=== PATIENT | female | born 1950 | race Caucasian/White ===

== ENCOUNTER 2020-08-09 13:46 | Inpatient (IN) | payer BC, SELFPAY ==
[2020-08-09] VITALS (12 sets, daily range): BP systolic 125–184; BP diastolic 80–127; PULSE 63–87; RESP 14–22; TEMP 37; O2SAT 82–100; BMI 34.0
--- NOTE | 2020-08-09 13:49 | XR_ITS ---
WS: [id number] XR chest 1V portable [id number] REASON FOR EXAM: dyspnea/cough FINDINGS: Mild tortuosity of the thoracic aorta without aneurysmal dilatation. Normal heart size. Calcified granulomatous changes in both hemithoraces. No definite acute pulmonary parenchymal or pleu ral abnormality. Focal lateral eventration of the left hemidiaphragm. XR/XR chest 1V portable [id number] IMPRESSION: No acute chest abnormality.
--- NOTE | 2020-08-09 14:06 | CT_ITS ---
WS: [id number] CT HEAD TECHNIQUE: Noncontrast CT of the head obtained from the skullbase to the vertex. CLINICAL INFORMATION: Symptoms of Acute Stroke COMPARISON: None. DLP: 887.[address] scans at [facility] use at least one of these dose optimization techniques: automat ed exposure control; mA and/or kV adjustment per patient size (includes targeted exams where dose is matched to clinical indication); or iterative reconstruction. FINDINGS: No evidence of intracranial hemorrhage or mass effect. Ventricular system and basal cisterns are weber nt. Mild small vessel changes with mild parenchymal volume loss. No extra-axial fluid collections. No evidence of mass or mass effect. Normal sutherland-white differentiation. Mastoid air cells well aerated. Mild mucosal thickening in the right maxillary sinus and ethmoid air cells. CT/CT head wo con* [id number] IMPRESSION: 1. No evidence of intracranial hemorrhage or mass effect. 2. Mild small vessel changes. Mild parenchymal volume loss. 3. No acute intracranial findings. Attempted notification Chad Albarran DO at 08/09/2020 3:08 PM.
--- NOTE | 2020-08-09 14:06 | ECG_ITS ---
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 Measurements Intervals [place] Rate: 62 P: 51 WI: 162 QRS: -2 QRSD: 94 T: -40 QT: 554 QTc: 563 Interpretive Statements SINUS RHYTHM MARKED T-WAVE ABNORMALITY, CONSIDER ANTEROLATERAL ISCHEMIA [-0.5+ mV T WAVE IN I/aVL/V3-V6] MODERATE T-WAVE ABNORMALITY, CONSIDER INFERIOR ISCHEMIA [-0.1+ mV T WAVE IN II/aVF] PROLONGED QT INTERVAL CRITICAL TEST RESULT No previous ECG available for comparison Electronically Signed On 08-09-2020 23:58:58 CDT by Sunny Ferrari M.D. [id number]
--- NOTE | 2020-08-09 14:11 | ED_ITS ---
HPI - Weakness General: Chief complaint: Weakness Stated complaint: WEAKNESS, NUMBNESS R SIDE, NOT FEELING WELL Time Seen by Provider: 08/09/20 13:48 History of Present Illness: HPI Narrative: 70-year-old female presents to the emergency room with complaints of generally not feeling well she said for the last approximately week her speech seems to be according to her family members. Denies chest pain denies shortness of breath tonight denies vomiting or diarrhea has had some nausea. She states she has had weakness for 2 to 3 weeks. She has intermittent chest pain which she describes as heartburn-like over that same time. She is not having any chest pain today. She does feel like she has been veering to the right. She has a history of lung CA but has not been on any oxygen and had a resection of the left lower lobectomy 6 to 7 years ago she had some vague abdominal pain for the last several months as well. No dysuria urgency or frequency. MD Complaint: generalized weakness Onset (ago): week(s) Duration: intermittent Location: generalized Severity: mild Relieving factors: none Exacerbating factors: none Associated symptoms: Reports chest pain and nausea; Denies chills, confusion, melena, decreased appetite, diaphoresis, dysuria, fever(s), headache(s), myalgias, rash, short of breath, syncope or vomiting Review of Systems Const: Denies: fever(s), chills or diaphoresis ENMT: Denies: throat pain, ear or mastoid pain, nasal discharge or nasal congestion Card: Reports: chest pain; Denies: syncope Resp: Denies: dyspnea, productive cough or non-productive cough GI: Reports: nausea; Denies: vomiting or melena : Denies: dysuria Skin/Breast: Denies: rash or pruritus Neuro: Denies: headache(s) or confusion PFSH ED PFSH: Medical History Acute insomnia Anxiety COPD (chronic obstructive pulmonary disease) History of lung cancer in adulthood Hyperlipidemia Hypertension Surgical History H/O carpal tunnel repair H/O: hysterectomy History of appendectomy History of cholecystectomy History of lung surgery History of neck surgery History of tonsillectomy Family History Father , CABG CAD (coronary artery disease) Daughter CAD (coronary artery disease) Daughter CAD (coronary artery disease) Social History Smoking and tobacco status: former smoker Alcohol intake: never Substance/Drug Use: never Lives independently: Yes Marital status: Physical Exam Const: COMMON NORMALS: no acute distress GENERAL APPEARANCE: cooperative and comfortable ORIENTATION/CONSCIOUSNESS: Yes awake, Yes oriented to person, Yes oriented to place and Yes oriented to time HENMT: COMMON NORMALS: normocephalic, atraumatic and hearing grossly normal bilaterally HEAD & SCALP: normocephalic and atraumatic Eye: COMMON NORMALS: Equal, round and reactive pupils present, EOMs intact bilaterally, conjunctivae normal and no scleral icterus CONJUNCTIVA: Yes conjunctivae normal PUPIL: Yes Equal, round and reactive pupils present Neck/C-Spine: COMMON NORMALS: full ROM, no lymphadenopathy, supple and no JVD Lymph: LYMPHATIC: no lymphadenopathy noted and no lymphedema noted Resp: COMMON NORMALS: normal respiratory effort, No retractions, No use of accessory muscles and clear to auscultation bilaterally AUSCULTATION: clear to auscultation bilaterally Cardio: COMMON NORMALS: no JVD, regular rate, regular rhythm and No murmurs present (Cardio) RATE: regular rate RHYTHM: regular rhythm GI: COMMON NORMALS: Soft to palpation and No hepatosplenomegaly present AUSCULTATION: Yes normoactive bowel sounds PALPATION: Yes Soft to palpation, No Tenderness to palpation present (GI), No Guarding due to palpation present (GI) and Yes No hepatosplenomegaly present Extremity: COMMON NORMALS: normal to inspection, capillary refill normal, no clubbing, cyanosis or edema, no calf tenderness and no pedal edema Neuro: SENSORIUM/ORIENTATION: Yes oriented to person, Yes oriented to place and Yes oriented to time Skin: COMMON NORMALS: no rashes or lesions noted GENERAL SKIN EXAM: no rashes or lesions noted Course 2 Vital Signs: Vital signs: Vital Signs Temperature 98 F 08/10/20 04:00 Pulse Rate 61 08/10/20 06:00 Respiratory Rate 14 08/10/20 04:00 Blood Pressure 128/65 08/10/20 04:00 Pulse Oximetry 94 08/10/20 04:00 MDM - Weakness MDM Narrative: Medical decision making narrative: Patient had EKG changes initially see the change in the chart she had some flipped T waves that improved on her second EKG her troponins are actually negative however. Also I am concerned that she had an evidence of a CVA however it is old she is outside the window for any kind of treatment or stroke score at best could be 1 given her complaint of mild dysarthria. Additionally her initial EKG had a prolonged QT. Organ to go ahead and admit her discussed with Dr. Maynard orders are written she will require further evaluation both for the CVA and cardiac work-up. Incidental finding of mild cystitis. Lab Data: Labs: Lab Results 08/09/20 08/09/20 08/09/20 Range/Units 14:10 14:10 14:10 WBC 5.8 (4.0-10.0) 10^3/ uL RBC 4.40 (4.1-5.3) 10^6/u L Hgb 13.5 (11.5-15.3) g/dL Hct 42.1 (37.0-47.0) % MCV 95.7 (81-99) fL MCH 30.7 (28.0-34.0) pg MCHC 32.1 (30.0-36.0) g/dL RDW 12.9 (12.1-15.1) % Plt Count 128 L (130-400) 10^3/c mm MPV 12.1 H (7.4-10.4) fL Neut % (Auto) 43.6 % Lymph % (Auto) 44.8 % Sterling % (Auto) 7.8 % Eos % (Auto) 3.1 % Baso % (Auto) 0.5 % Neut # (Auto) 2.51 (1.8-7.7) 10^3/u L Lymph # (Auto) 2.6 (0.8-4.8) 10^3/u L Sterling # (Auto) 0.5 (0.2-0.9) 10^3/u L Eos # (Auto) 0.2 (0.0-0.8) 10^3/u L Baso # (Auto) 0.0 (0.0-0.1) 10^3/u L Nucleated RBC % (a uto) 0 % Nucleated RBCs # 0.0 /100WBC PT 14.00 (12.1-14.9) SECO NDS INR 1.05 (0.8-1.2) APTT 33.5 (23.9-36.7) SECO NDS Sodium 140 (136-145) mmol/L Potassium 4.0 (3.5-5.1) mmol/L Chloride 102 (98-107) mmol/L Carbon Dioxide 32 H (22-29) mmol/L Anion Gap 10.0 (5-19) BUN 16 (8-23) mg/dL Creatinine 0.8 (0.5-0.9) mg/dL GFR Calculation 71.3 L (90-130) mL/min Glucose 90 (65-115) mg/dL POC Glucose (70-110) mg/dL Calculated Osmolal ity 291 (285-295) mOsm/k g Calcium 8.5 (8.5-10.5) mg/dL Total Bilirubin 0.2 (0.15-1.2) mg/dL AST 22 (0-32) U/L ALT 11 (0-33) U/L Alkaline Phosphata se 89 (35-105) IU/L Creatine Kinase (26-192) U/L Troponin T Baselin e (0-10) ng/L Troponin T 120 Min [place] (0-10) ng/L Delta Troponin T (0-10) ABS# Troponin T Hi Sens 6Hr (0-10) ng/L Troponin T Hi Sens 6Hr Delta (0-12) ng/L Total Protein 6.9 (6.6-8.7) g/dL Albumin 3.8 (3.5-5.2) g/dL Globulin 3.1 (1.3-4.6) g/dL TSH (0.27-4.20) uIU/ mL Urine Color (Yellow) Urine Appearance (CLEAR) Urine pH (5-7) Ur Specific Gravit y (1.005-1.030) Urine Protein (Negative) Urine Glucose (UA) (Normal) Urine Ketones (Negative) Urine Blood (Negative) Urine Nitrate (Negative) Urine Bilirubin (Negative) Urine Urobilinogen (Negative) mg/dL Ur Leukocyte Mabel ase (Negative) Urine RBC (0-2) /hpf Urine WBC (0-5) /hpf Ur Squamous Epith Cells (0-5) /hpf Amorphous Sediment Urine Bacteria (NONE) /hpf Urine Opiates Scre en (Negative) ng/mL Ur Barbiturates Sc reen (Negative) ng/mL Ur Phencyclidine S crn (Negative) ng/mL Ur Amphetamines Sc reen (Negative) ng/mL U Benzodiazepines Scrn (Negative) ng/mL Urine Cocaine Scre en (Negative) ng/mL U Marijuana (THC) Screen (Negative) ng/mL 08/09/20 08/09/20 08/09/20 Range/Units 14:10 14:10 14:22 WBC (4.0-10.0) 10^3/ uL RBC (4.1-5.3) 10^6/u L Hgb (11.5-15.3) g/dL Hct (37.0-47.0) % MCV (81-99) fL MCH (28.0-34.0) pg MCHC (30.0-36.0) g/dL RDW (12.1-15.1) % Plt Count (130-400) 10^3/c mm MPV (7.4-10.4) fL Neut % (Auto) % Lymph % (Auto) % Sterling % (Auto) % Eos % (Auto) % Baso % (Auto) % Neut # (Auto) (1.8-7.7) 10^3/u L Lymph # (Auto) (0.8-4.8) 10^3/u L Sterling # (Auto) (0.2-0.9) 10^3/u L Eos # (Auto) (0.0-0.8) 10^3/u L Baso # (Auto) (0.0-0.1) 10^3/u L Nucleated RBC % (a uto) % Nucleated RBCs # /100WBC PT (12.1-14.9) SECO NDS INR (0.8-1.2) APTT (23.9-36.7) SECO NDS Sodium (136-145) mmol/L Potassium (3.5-5.1) mmol/L Chloride (98-107) mmol/L Carbon Dioxide (22-29) mmol/L Anion Gap (5-19) BUN (8-23) mg/dL Creatinine (0.5-0.9) mg/dL GFR Calculation (90-130) mL/min Glucose (65-115) mg/dL POC Glucose 108 (70-110) mg/dL Calculated Osmolal ity (285-295) mOsm/k g Calcium (8.5-10.5) mg/dL Total Bilirubin (0.15-1.2) mg/dL AST (0-32) U/L ALT (0-33) U/L Alkaline Phosphata se (35-105) IU/L Creatine Kinase 154 (26-192) U/L Troponin T Baselin e 40 H (0-10) ng/L Troponin T 120 Min [place] (0-10) ng/L Delta Troponin T (0-10) ABS# Troponin T Hi Sens 6Hr (0-10) ng/L Troponin T Hi Sens 6Hr Delta (0-12) ng/L Total Protein (6.6-8.7) g/dL Albumin (3.5-5.2) g/dL Globulin (1.3-4.6) g/dL TSH (0.27-4.20) uIU/ mL Urine Color (Yellow) Urine Appearance (CLEAR) Urine pH (5-7) Ur Specific Gravit y (1.005-1.030) Urine Protein (Negative) Urine Glucose (UA) (Normal) Urine Ketones (Negative) Urine Blood (Negative) Urine Nitrate (Negative) Urine Bilirubin (Negative) Urine Urobilinogen (Negative) mg/dL Ur Leukocyte Mabel ase (Negative) Urine RBC (0-2) /hpf Urine WBC (0-5) /hpf Ur Squamous Epith Cells (0-5) /hpf Amorphous Sediment Urine Bacteria (NONE) /hpf Urine Opiates Scre en (Negative) ng/mL Ur Barbiturates Sc reen (Negative) ng/mL Ur Phencyclidine S crn (Negative) ng/mL Ur Amphetamines Sc reen (Negative) ng/mL U Benzodiazepines Scrn (Negative) ng/mL Urine Cocaine Scre en (Negative) ng/mL U Marijuana (THC) Screen (Negative) ng/mL 08/09/20 08/09/20 08/09/20 Range/Units 14:34 14:34 15:58 WBC (4.0-10.0) 10^3/ uL RBC (4.1-5.3) 10^6/u L Hgb (11.5-15.3) g/dL Hct (37.0-47.0) % MCV (81-99) fL MCH (28.0-34.0) pg MCHC (30.0-36.0) g/dL RDW (12.1-15.1) % Plt Count (130-400) 10^3/c mm MPV (7.4-10.4) fL Neut % (Auto) % Lymph % (Auto) % Sterling % (Auto) % Eos % (Auto) % Baso % (Auto) % Neut # (Auto) (1.8-7.7) 10^3/u L Lymph # (Auto) (0.8-4.8) 10^3/u L Sterling # (Auto) (0.2-0.9) 10^3/u L Eos # (Auto) (0.0-0.8) 10^3/u L Baso # (Auto) (0.0-0.1) 10^3/u L Nucleated RBC % (a uto) % Nucleated RBCs # /100WBC PT (12.1-14.9) SECO NDS INR (0.8-1.2) APTT (23.9-36.7) SECO NDS Sodium (136-145) mmol/L Potassium (3.5-5.1) mmol/L Chloride (98-107) mmol/L Carbon Dioxide (22-29) mmol/L Anion Gap (5-19) BUN (8-23) mg/dL Creatinine (0.5-0.9) mg/dL GFR Calculation (90-130) mL/min Glucose (65-115) mg/dL POC Glucose (70-110) mg/dL Calculated Osmolal ity (285-295) mOsm/k g Calcium (8.5-10.5) mg/dL Total Bilirubin (0.15-1.2) mg/dL AST (0-32) U/L ALT (0-33) U/L Alkaline Phosphata se (35-105) IU/L Creatine Kinase (26-192) U/L Troponin T Baselin e (0-10) ng/L Troponin T 120 Min [place] 37.00 H (0-10) ng/L Delta Troponin T -3.00 L (0-10) ABS# Troponin T Hi Sens 6Hr (0-10) ng/L Troponin T Hi Sens 6Hr Delta (0-12) ng/L Total Protein (6.6-8.7) g/dL Albumin (3.5-5.2) g/dL Globulin (1.3-4.6) g/dL TSH (0.27-4.20) uIU/ mL Urine Color Yellow (Yellow) Urine Appearance Sl hazy (CLEAR) Urine pH 6 (5-7) Ur Specific Gravit y 1.005 (1.005-1.030) Urine Protein Neg (Negative) Urine Glucose (UA) Norm (Normal) Urine Ketones Negative (Negative) Urine Blood Neg (Negative) Urine Nitrate Positive H (Negative) Urine Bilirubin Neg (Negative) Urine Urobilinogen Norm (Negative) mg/dL Ur Leukocyte Mabel ase Trace H (Negative) Urine RBC None (0-2) /hpf Urine WBC 5-10 H (0-5) /hpf Ur Squamous Epith Cells None (0-5) /hpf Amorphous Sediment Not Reportable Urine Bacteria 4+ H (NONE) /hpf Urine Opiates Scre en Positive H (Negative) ng/mL Ur Barbiturates Sc reen Negative (Negative) ng/mL Ur Phencyclidine S crn Negative (Negative) ng/mL Ur Amphetamines Sc reen Negative (Negative) ng/mL U Benzodiazepines Scrn Positive H (Negative) ng/mL Urine Cocaine Scre en Negative (Negative) ng/mL U Marijuana (THC) Screen Negative (Negative) ng/mL 08/09/20 08/09/20 Range/Units 19:51 19:51 WBC (4.0-10.0) 10^3/ uL RBC (4.1-5.3) 10^6/u L Hgb (11.5-15.3) g/dL Hct (37.0-47.0) % MCV (81-99) fL MCH (28.0-34.0) pg MCHC (30.0-36.0) g/dL RDW (12.1-15.1) % Plt Count (130-400) 10^3/c mm MPV (7.4-10.4) fL Neut % (Auto) % Lymph % (Auto) % Sterling % (Auto) % Eos % (Auto) % Baso % (Auto) % Neut # (Auto) (1.8-7.7) 10^3/u L Lymph # (Auto) (0.8-4.8) 10^3/u L Sterling # (Auto) (0.2-0.9) 10^3/u L Eos # (Auto) (0.0-0.8) 10^3/u L Baso # (Auto) (0.0-0.1) 10^3/u L Nucleated RBC % (a uto) % Nucleated RBCs # /100WBC PT (12.1-14.9) SECO NDS INR (0.8-1.2) APTT (23.9-36.7) SECO NDS Sodium (136-145) mmol/L Potassium (3.5-5.1) mmol/L Chloride (98-107) mmol/L Carbon Dioxide (22-29) mmol/L Anion Gap (5-19) BUN (8-23) mg/dL Creatinine (0.5-0.9) mg/dL GFR Calculation (90-130) mL/min Glucose (65-115) mg/dL POC Glucose (70-110) mg/dL Calculated Osmolal ity (285-295) mOsm/k g Calcium (8.5-10.5) mg/dL Total Bilirubin (0.15-1.2) mg/dL AST (0-32) U/L ALT (0-33) U/L Alkaline Phosphata se (35-105) IU/L Creatine Kinase (26-192) U/L Troponin T Baselin e (0-10) ng/L Troponin T 120 Min [place] (0-10) ng/L Delta Troponin T (0-10) ABS# Troponin T Hi Sens 6Hr 35.03 H (0-10) ng/L Troponin T Hi Sens 6Hr Delta -4.97 L (0-12) ng/L Total Protein (6.6-8.7) g/dL Albumin (3.5-5.2) g/dL Globulin (1.3-4.6) g/dL TSH 0.66 (0.27-4.20) uIU/ mL Urine Color (Yellow) Urine Appearance (CLEAR) Urine pH (5-7) Ur Specific Gravit y (1.005-1.030) Urine Protein (Negative) Urine Glucose (UA) (Normal) Urine Ketones (Negative) Urine Blood (Negative) Urine Nitrate (Negative) Urine Bilirubin (Negative) Urine Urobilinogen (Negative) mg/dL Ur Leukocyte Mabel ase (Negative) Urine RBC (0-2) /hpf Urine WBC (0-5) /hpf Ur Squamous Epith Cells (0-5) /hpf Amorphous Sediment Urine Bacteria (NONE) /hpf Urine Opiates Scre en (Negative) ng/mL Ur Barbiturates Sc reen (Negative) ng/mL Ur Phencyclidine S crn (Negative) ng/mL Ur Amphetamines Sc reen (Negative) ng/mL U Benzodiazepines Scrn (Negative) ng/mL Urine Cocaine Scre en (Negative) ng/mL U Marijuana (THC) Screen (Negative) ng/mL Discharge Plan Discharge Patient Disposition: Admitted As Inpatient Admit Provider: Carlos Maynard Clinical Impression: CVA (cerebral vascular accident), Elevated troponin, Uncontrolled hypertension, QT prolongation, Generalized weakness, Thrombocytopenia, UTI (urinary tract infection) Condition: Stable Coding Level of Care Code ED 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
[2020-08-09 14:27] LABS: Basophils % 0.5 %; Eosinophils # 0.2 10^3/uL (0.0-0.8); Eosinophils % 3.1 %; Hematocrit 42.1 % (37.0-47.0); Hemoglobin 13.5 g/dL (11.5-15.3); Lymphocytes # 2.6 10^3/uL (0.8-4.8); Lymphocytes % 44.8 %; Mean Corpuscular HGB Conc 32.1 g/dL (30.0-36.0); Mean Corpuscular Hemoglobin 30.7 pg (28.0-34.0); Mean Corpuscular Volume 95.7 fL (81-99); Mean Platelet Volume 12.1 fL (7.4-10.4); Monocytes # 0.5 10^3/uL (0.2-0.9); Monocytes % 7.8 %; Neutrophils # 2.51 10^3/uL (1.8-7.7); Neutrophils % 43.6 %; Nucleated Red Blood Cells % 0 %; Platelet Count 128 10^3/cmm (130-400); Red Cell Distribution Width 12.9 % (12.1-15.1); White Blood Count 5.8 10^3/uL (4.0-10.0)
[2020-08-09 14:40] LABS: Glucose Point of Care 108 mg/dL (70-110)
[2020-08-09 14:41] LABS: INR 1.05 (0.8-1.2)
[2020-08-09 14:42] LABS: Partial Thromboplastin Time 33.5 SECONDS (23.9-36.7)
[2020-08-09 14:47] LABS: Alanine Aminotransferase 11 U/L (0-33); Albumin Level 3.8 g/dL (3.5-5.2); Alkaline Phosphatase 89 IU/L (35-105); Aspartate Amino Transferase 22 U/L (0-32); Blood Urea Nitrogen 16 mg/dL (8-23); Calcium 8.5 mg/dL (8.5-10.5); Carbon Dioxide 32 mmol/L (22-29); Chloride 102 mmol/L (98-107); Globulin 3.1 g/dL (1.3-4.6); Glomerular Filtration Rate 71.3 mL/min (90-130); Glucose 90 mg/dL (65-115); Osmolality Calculated 291 mOsm/kg (285-295); Sodium 140 mmol/L (136-145); Total Bilirubin 0.2 mg/dL (0.15-1.2); Total Protein 6.9 g/dL (6.6-8.7)
[2020-08-09 15:28] LABS: Add Urine Microscopic? YES; Amphetamines Screen Urine Negative (Negative); Barbiturates Screen Urine Negative (Negative); Benzodiazepines Screen Urine Positive (Negative); Bilirubin Urine Neg (Negative); Blood Urine Neg (Negative); Cocaine Screen Urine Negative (Negative); Glucose Urine UA Norm (Normal); Ketones Urine Negative (Negative); Leukocyte Esterase Urine Trace (Negative); Nitrate Urine Positive (Negative); Opiate Screen Urine Positive (Negative); PCP Screen Urine Negative (Negative); Protein Urine Neg (Negative); Specific Gravity, Urine 1.005 (1.005-1.030); THC Screen Urine Negative (Negative); Urine Appearance SL Hazy (CLEAR); Urine Color Yellow (Yellow); Urobilinogen Urine Norm (Negative); pH Urine 6 (5-7)
[2020-08-09 15:30] LABS: Add Urine Culture? Yes; Bacteria Urine 4+ /hpf
[2020-08-09 15:51] LABS: Troponin(5th) Baseline 40 ng/L (0-10)
--- NOTE | 2020-08-09 17:19 | ECG_ITS ---
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 Measurements Intervals [place] Rate: 66 P: 62 MA: 171 QRS: -2 QRSD: 93 T: -30 QT: 425 QTc: 447 Interpretive Statements SINUS RHYTHM T WAVE ABNORMALITY, CONSIDER INFERIOR ISCHEMIA T WAVE ABNORMALIY, CONSIDER ANTERIOR ISCHEMIA Compared to ECG 08/09/2020 15:06:07 Prolonged QT interval no longer present Electronically Signed On 08-11-2020 8:02:23 CDT by Batsheva Ernandez M.D. [id number]
[2020-08-09] MEDS: nitroglycerin 1 gm/inch oint Pkt 1 INCH TOPICAL ×2 (18:18→22:13)
[2020-08-09] MEDS: aspirin 81 mg Chew Tablet 324 MG PO ×2 (18:18→22:12)
--- NOTE | 2020-08-09 19:27 | PM.HP ---
Providers/Chief Complaint Admitting Physician: Carlos Maynard Chief Complaint: WEAKNESS, NUMBNESS R SIDE, NOT FEELING WELL History of Present Illness Pleasant 70-year-old lady came into ER due to progressive weakness starting about a week ago, at which point she also noted transient right facial droop. She has noticed having right hand clumsiness. Also noticed that her right leg has been weaker than usual. Reports that her family also noticed she has been having dysarthria even with her dentures in place. She does report having sciatica, but on the left side. She has been dealing with chronic back pain following thoracotomy with history of lung cancer, currently in remission. She takes a number of medications at home for chronic pain including Dilaudid 4 mg 4 times, and sometimes 5 times daily. Robaxin 1/2 tablet 3 times daily. Also takes Ambien at night. Appears she also takes Xanax as needed. She does not remember the strength. She had had COVID-19 back in February. She denies having recent fevers or chills. Several days ago says she had an episode of nausea vomiting and mild headache which had resolved. She had come in for evaluation at the urging of her family due to persistent generalized weakness, and concern about strokelike symptoms. She does report intermittent heartburn and upper abdominal distribution for which she takes Zantac at home and states that it goes away. Denies any persistent chest pain. Denies history of cardiac illness in herself, although is noted to have elevated blood pressure in ER. States at home previously blood pressures were running in 120s. Does have significant history of coronary disease in her family with father having CABG, 2 daughters, one with 5 stents who several weeks ago, and another with 3 stents who earlier. Reports she has lost all her children. Has been grieving. He is aware to watch for depression. Denies any thoughts of self-harm or suicidal ideation. Is following with her primary care provider regarding this. In ER with noted troponin abnormality, 40-37. EKG with T wave inversions, QTC prolongation. Was discussed by her physician with cardiology. With recommendation to rule out WI. Due to suspected concomitant CVA she is requested to be admitted to the hospital. Other abnormalities include incidentally noted mild thrombocytopenia, platelets 128,000. UA abnormalities with positive nitrate, trace LE, 5-10 WBC, 4+ bacteria. Urine toxicology panel positive for opioids, benzodiazepines. Head CT without evidence of acute abnormality. Chest x-ray without acute changes. Review of Systems Const: Reports: other (Generalized weakness. Weakness also more pronounced on the right side.); Denies: fever(s), chills, body aches or malaise Eyes: Denies: change in vision or eye redness ENMT: Denies: throat pain, oral sores or ear or mastoid pain Card: Denies: chest pain, edema, pre-syncope or dyspnea on exertion Resp: Denies: dyspnea, productive cough, change in phlegm color or hemoptysis GI: Reports: other (Occasional epigastric discomfort.); Denies: nausea, vomiting, diarrhea, constipation, hematochezia or melena : Denies: flank pain, urinary frequency or hematuria Musc: Denies: back pain, joint swelling or joint redness Skin/Breast: Denies: rash, sores or new lesions Neuro: Reports: weakness in extremities (Right side), lack of coordination (Right hand), Slurred speech present and involuntary movements (Occasionally her arms may drop down, dropping objects she has been holding); Denies: headache(s), numbness in extremities, dizziness, confusion or seizure-like activity Endo: Denies: polyuria or polydipsia Jaret/Lymph: Denies: easy bleeding or purpura All/Imm: Denies: urticaria, throat swelling or tongue swelling Medications/Allergies Home Medications Medication Instructions Recorded Confirmed Last Taken Type aspirin 81 mg tablet,delayed 81 mg PO DAILY@02/09/20 08/09/20 08/08/20 History release hydromorphone 4 mg tablet 4 mg PO Q4H PRN 02/09/20 08/09/20 08/08/20 History alprazolam 0.25 mg PO TID PRN 08/09/20 08/09/20 Unknown History atorvastatin 10 mg PO DAILY@209908/09/20 08/09/20 08/08/20 History carvedilol 12.5 mg PO BID@08/09/20 08/09/20 08/09/20 History celecoxib 200 mg PO BID@08/09/20 08/09/20 08/08/20 History dicyclomine 10 mg PO Q4H PRN 08/09/20 08/09/20 Unknown History methocarbamol [Methocarb] 1,500 mg PO TID PRN 08/09/20 08/09/20 Unknown History omeprazole 40 mg PO BID@08/09/20 08/09/20 08/09/20 History zolpidem 10 mg PO BEDTIME PRN 08/09/20 08/09/20 Unknown History Allergies Allergy/AdvReac Type Severity Reaction Status Date / Time bupropion [From Wellbutrin] AdvReac Mild unknown Verified 02/09/20 15:47 codeine AdvReac Mild unknown Verified 02/09/20 15:47 PFSH Acute PFSH: Medical History Acute insomnia Anxiety COPD (chronic obstructive pulmonary disease) History of lung cancer in adulthood Hyperlipidemia Hypertension Surgical History H/O carpal tunnel repair H/O: hysterectomy History of appendectomy History of cholecystectomy History of lung surgery History of neck surgery History of tonsillectomy Family History Father , CABG CAD (coronary artery disease) Daughter CAD (coronary artery disease) Daughter CAD (coronary artery disease) Social History Smoking and tobacco status: former smoker Alcohol intake: never Substance/Drug Use: never Lives independently: Yes Marital status: Vitals/I&O/Wt Last Vital Signs Temp 98.6 F 08/09/20 13:47 Pulse 66 08/09/20 18:24 Resp 17 08/09/20 18:24 BP 168/127 08/09/20 18:24 Pulse Ox 98 08/09/20 18:24 Weight last 48 hrs Weight 89.811 kg Physical Exam Const: COMMON NORMALS: no acute distress and patient oriented x3 GENERAL APPEARANCE: cooperative NUTRITIONAL APPEARANCE: obese ORIENTATION/CONSCIOUSNESS: Yes awake HENMT: COMMON NORMALS: oropharynx normal Neck/C-Spine: COMMON NORMALS: no JVD Resp: COMMON NORMALS: normal respiratory effort and clear to auscultation bilaterally AUSCULTATION: clear to auscultation bilaterally Cardio: COMMON NORMALS: no JVD, regular rhythm, S1 normal heart sound present, S2 normal heart sound present and No murmurs present (Cardio) RHYTHM: regular rhythm HEART SOUNDS: S1 normal heart sound present and S2 normal heart sound present GI: COMMON NORMALS: Normal to inspection, nondistended, normoactive bowel sounds present, Soft to palpation and non-tender PALPATION: Yes Soft to palpation Extremity: COMMON NORMALS: no joint enlargement and no pedal edema Neuro: COMMON NORMALS: patient oriented x3 and moves all extremities MENINGEAL SIGNS: Yes no meningeal signs SPEECH: abnormal speech Details: slurred OTHER: Mildly weaker on the right side. Skin: COMMON NORMALS: no rashes or lesions noted GENERAL SKIN EXAM: no rashes or lesions noted Data : 08/09/20 14:10 08/09/20 14:10 A&P Assessment and plan (1) CVA (cerebral vascular accident): Possible CVA with right-sided weakness, right-sided clumsiness, dysarthria. CT of the head unremarkable. Due to dysarthria we will get speech therapy assessment. With generalized weakness, worse in the right side will get PT, OT. She is already on aspirin. For now statin on hold due to generalized weakness, assessment for possible myopathy. We will assess carotid Doppler. Monitor on telemetry. Possibly concomitant with prior ACS? Discussed with her. Consider additional assessment by MRI. Consider follow-up with neurology. Monitor and optimize HTN. Discontinue celecoxib. Status: Acute (2) Generalized weakness: Check TSH. Check CK. Hold atorvastatin for now as discussed with her. Assess for possible ACS several days ago. Assess TTE. She is agreeable for additional symptom by stress testing tomorrow. Status: Acute (3) Elevated troponin: Discussed with her. Unclear whether this may be demand ischemia secondary to poorly controlled hypertension. Or possible ACS several days ago now with downtrending troponin, possibly with concomitant CVA. Received aspirin. Continue. Statin for now on hold. Continue beta-ramses. Would discontinue celecoxib. Monitor on telemetry. Assess TTE. Stress test tomorrow. Status: Acute (4) Uncontrolled hypertension: Continue carvedilol. Cardiac diet. Monitor blood pressures. Status: Acute (5) Polypharmacy: Discussed with her risk of neurologic abnormalities with polypharmacy, especially with long-term. Strong opioid multiple times a day, hydromorphone, as well as muscle relaxant, as well as Ambien which appears she is taking at 10 mg (she was not sure about the dosing). Discussed potential adverse effects with each of these medications. She is agreeable in trying to cut down the doses and states will work with her PCP to try to wean off and switch to alternative measures. She had started on many of these medications after her lung cancer following thoracotomy due to chronic pain. Appears she also takes Xanax as needed, which would be another medication with potential adverse effects with long-term use. Resume medications at lower doses. Monitor. Hold statin for now for possible statin induced myopathy. Check CK. Status: Acute (6) UTI (urinary tract infection): Discussed with her. Start Rocephin for treatment. Follow-up urine culture. Status: Acute (7) Thrombocytopenia: Incidentally noted. Monitor. Discontinue NSAID. Status: Acute (8) QT prolongation: Unclear cause of this does not appear that any of her medications should be contributing. Assess additionally for possible cardiac ischemia. Status: Acute Attestations Medical Necessity Statement*: Gilbert of over 2 midnights is going to be needed for assessment of management of CVA, troponin abnormality with possible recent WI, generalized weakness, urinary tract infection, poorly controlled hypertension, QT pronation in a lady with risk factors of coronary disease, risk of recurrent CVA, WI, with poor outcome. Coding Level of Care Code Acute [employer] Worker for Kamila Solomon Diagnoses CVA (cerebral vascular accident) I63.9 Generalized weakness R53.1 Elevated troponin R77.8 Uncontrolled hypertension I10 Polypharmacy Z79.899 UTI (urinary tract infection) N39.0 Thrombocytopenia D69.6 QT prolongation R94.31
[2020-08-09 19:50] LABS: Creatine Phosphokinase 154 U/L (26-192)
[2020-08-09 20:30] LABS: Troponin 5 6HR 35.03 ng/L (0-10)
[2020-08-09 20:32] LABS: Troponin 5 6HR Delta -4.97 ng/L (0-12)
--- NOTE | 2020-08-09 21:19 | ECG_ITS ---
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 Measurements Intervals [place] Rate: 59 P: 66 MS: 163 QRS: 14 QRSD: 94 T: -35 QT: 567 QTc: 563 Interpretive Statements SINUS BRADYCARDIA MODERATE T-WAVE ABNORMALITY, CONSIDER ANTEROLATERAL ISCHEMIA [-0.1+ mV T WAVE IN V3-V6] MODERATE T-WAVE ABNORMALITY, CONSIDER INFERIOR ISCHEMIA [-0.1+ mV T WAVE IN II/aVF] PROLONGED QT INTERVAL CRITICAL TEST RESULT Compared to ECG 08/09/2020 17:20:42 T-wave abnormality now present Possible ischemia now present Prolonged QT interval now present Sinus rhythm no longer present Electronically Signed On 08-11-2020 8:00:02 CDT by Batsheva Ernandez M.D. [id number]
[2020-08-09 22:01] LABS: Thyroid Stimulating Hormone 0.66 uIU/mL (0.27-4.20)
[2020-08-09] MEDS: cefTRIAXone 1,000 MG in sodium chloride 0.9% (plus) 50 ML 100 MG IV (22:11)
[2020-08-09] MEDS: heparin 5,000 unit/mL INJ 1 mL 5000 UNIT SUBCUT (22:11)
[2020-08-09] MEDS: carvedilol 12.5 mg Tablet PO (22:17)
[2020-08-09] MEDS: pantoprazole DR 40 mg Tablet PO (22:17)
[2020-08-10] VITALS (14 sets, daily range): BP systolic 128–165; BP diastolic 65–109; PULSE 59–73; RESP 14–24; TEMP 36.4–36.8; O2SAT 87–98
[2020-08-10] MEDS: acetaminophen 325 mg Tablet 650 MG PO (02:04)
[2020-08-10 04:59] LABS: Basophils % 0.5 %; Eosinophils # 0.1 10^3/uL (0.0-0.8); Eosinophils % 2.4 %; Hematocrit 37.6 % (37.0-47.0); Hemoglobin 12.2 g/dL (11.5-15.3); Lymphocytes # 2.4 10^3/uL (0.8-4.8); Mean Corpuscular HGB Conc 32.4 g/dL (30.0-36.0); Mean Corpuscular Hemoglobin 30.8 pg (28.0-34.0); Mean Corpuscular Volume 94.9 fL (81-99); Mean Platelet Volume 12.9 fL (7.4-10.4); Monocytes # 0.4 10^3/uL (0.2-0.9); Monocytes % 7.5 %; Neutrophils # 2.55 10^3/uL (1.8-7.7); Neutrophils % 46.4 %; Nucleated Red Blood Cells % 0 %; Platelet Count 118 10^3/cmm (130-400); Red Blood Count 3.96 10^6/uL (4.1-5.3); Red Cell Distribution Width 12.6 % (12.1-15.1); White Blood Count 5.5 10^3/uL (4.0-10.0)
[2020-08-10 05:25] LABS: Anion Gap 11.8 (5-19); Blood Urea Nitrogen 13 mg/dL (8-23); Calcium 8.6 mg/dL (8.5-10.5); Carbon Dioxide 31 mmol/L (22-29); Chloride 103 mmol/L (98-107); Glomerular Filtration Rate 83.2 mL/min (90-130); Glucose 86 mg/dL (65-115); Osmolality Calculated 293 mOsm/kg (285-295); Potassium 3.8 mmol/L (3.5-5.1); Sodium 142 mmol/L (136-145)
[2020-08-10] MEDS: carvedilol 12.5 mg Tablet PO ×2 (05:29→21:10)
[2020-08-10] MEDS: heparin 5,000 unit/mL INJ 1 mL 5000 UNIT SUBCUT ×3 (05:29→21:11)
[2020-08-10] MEDS: pantoprazole DR 40 mg Tablet PO ×2 (05:29→21:10)
--- NOTE | 2020-08-10 08:00 | ECG_ITS ---
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 The perfusion scan will be documented separately. DATA: Baseline heart rate was 60 beats per minute. Baseline blood pressure was 120/87 millimeters of mercury. Target heart rate was 152. Maximum heart rate achieved was 72. which was 47 % of the predicted target heart rate. Maximum blood pressure was 151/87 millimeters of mercury. The reason for ending the test was completion of the protocol. The patient did not experience any symptoms. ELECTROCARDIOGRAM: BASELINE: Sinus rhythm. Normal axis. Poor R wave progression in anterior leads with inverted T wave suggestive of old myocardial infarction however cannot rule out ischemia, interventricular conduction delay, nonspecific inferior lead inverted T waves. EXERCISE: After Lexiscan injection, no ST-T changes suggestive of ischemic noted. No arrhythmia noted. CONCLUSION: Please note due to baseline abnormality of the EKG specificity and sensitivity of the EKG portion of LexiScan MIBI stress test will be low 1. EKG not suggestive of ischemia 2. Lexiscan injection unremarkable. 3. Perfusion scan will be documented separately. Electronically Signed On 08-15-2020 20:46:23 CDT by ODILON DELATORRE [id number]
[2020-08-10] MEDS: regadenoson 0.4 Mg/5 ml Syringe IVP (08:34)
--- NOTE | 2020-08-10 08:53 | PC.CHAP ---
Pastoral Care Encounter/Spiritual Assessment Type of Contact [] Declined director cardiac visit [] Patient/Family/Request visit [] Outpatient visit [] Follow-up visit [] Physician referral [] Code/Alert [x] Routine visit [] Staff referral [] Actively dying [] Patient sleeping [] Family support [] [x] Out of room [] Palliative care [] [] Receiving care in room [] Pre-surgical visit [] Trauma [] Long length of stay [] ICU visit [x] Other: testing Relational/Emotional Strength [] Patient feels connected with others/family/visitors/staff [] Distress [] Loneliness/isolation [] Abandonment Spirituality of Patient [] Person of Kelle [] Attends Adventist of their Kelle [] Believes in Prayer [] Reads Bible or Jehovah'S Witness materials [] There are Spiritual issues to be addressed Pooling Operator Interventions [x] Prayer [] Active listening [] Non-anxious presence [] Spiritual/emotional support [] Crisis/trauma care [] Spiritual counseling [] Bereavement support [] Provided bereavement packet [] Provided Bible/devotional materials [] Provided toy/stuffed animal, coloring book to patient or family member [] Provided Communion [] Anointing/Bruce [] Salvation [x] Completed spiritual assessment [] Other: Impact on Illness or Injury [] Angry [] Fearful [] Anxious [] Often cries [] Exhaustion [] Unable to work [] Unable to attend baptist [] Unable to walk/stand [] Unable to read [] Unable to drive [] Unable to eat/drink [] Unable to sleep [] Unable to be with family [] Patient intubated [] Other: Summary Time spent with patient
[2020-08-10] MEDS: aspirin 325 mg Tablet PO (12:16)
--- NOTE | 2020-08-10 19:27 | PM.DCS ---
Discharge Providers Date of Admission: 08/09/20 21:25 Date of Discharge: August 10, 2020 Attending Provider at Admission: Carlos Maynard Attending Provider at Discharge: Carlos Maynard Diagnoses at Discharge Discharge Diagnosis (1) CVA (cerebral vascular accident): Status: Acute (2) Generalized weakness: Status: Acute (3) Elevated troponin: Status: Acute (4) Uncontrolled hypertension: Status: Acute (5) Polypharmacy: Status: Acute (6) UTI (urinary tract infection): Status: Acute (7) Thrombocytopenia: Status: Acute (8) QT prolongation: Status: Acute Reason for Visit Reason for Visit: WEAKNESS, NUMBNESS R SIDE, NOT FEELING WELL Hospital Course Hospital Course Pleasant 70-year-old lady who had COVID-19 back in February, with history of COPD, left upper lobectomy for lung cancer, anxiety, HTN, HLD, insomnia, chronic pain, was admitted for cyst management after noted right-sided weakness, transient right-sided facial droop, dysarthria, noted right hand clumsiness, but also complaining of generalized weakness, and sometimes muscle/arms getting weak transiently for a moment. On presentation with noted dysarthria, right-sided weakness. Admitted for additional assessment for CVA. Also noted EKG abnormalities, decreasing troponin which was moderately elevated, although without chest pain. Prior to admission was having epigastric discomfort intermittently. On presentation with noted elevated blood pressure. Original symptoms of weakness, dysarthria, facial droop have been going on for about a week. She was started on aspirin. She has been taking statin. CT of the head did not show acute abnormality. Carotid Dopplers were obtained with less than 50% bilateral stenosis. Echocardiogram was obtained with finding of normal ejection fraction, grade 1 diastolic dysfunction, moderate MVR, moderate AVR. She was monitored on telemetry without finding of arrhythmia, however, with risk factors for atrial fibrillation, with CVA, is being set up for 21-day monitor per discussion with Dr. Haney with whom she is also asked to follow-up due to valvular abnormalities, and she also reports possibility of holes in the lining of her heart on previous assessment. She reports years ago had undergone a test which had possibly showed that she is not sure about the details. She feels her primary care provider may be should have or be able to obtain these records. She is encouraged to do so and to discuss with the director of automation and neurologist on discharge. She is also referred for a sleep study due to episodic hypertension, CVA, and concern for undiagnosed sleep apnea. She is referred for an MRI of the brain and follow-up with neurology. Today she is doing better. Has had no recurrence of facial droop. Generalized weakness improved. Her statin for now is held due to consideration of possible statin induced myopathy. CK was normal. Please consider resuming a different statin medication as discussed with her due to CVA. She is noted to have persistent right side pronator drift. Minimal persistent dysmetria on the right. Dysarthria overall appears to have improved. She is continued on aspirin. Statin for now held due to concern for possible statin related myopathy. Please reevaluate and resume as appropriate. Please help her with management of episodic blood pressure. She is encouraged to maintain cardiac diet. Is continued on carvedilol. We are giving her as discussed also a prescription for amlodipine as needed for elevated blood pressures. Due to noted ST/T abnormalities on presentation, QT prolongation, downtrending troponin, with concern for possible recent LA was further assessed for coronary disease. On assessment with stress testing she appears to had a prior LA without active ischemia. Please assist her with optimizing risk factors of CAD. She is asked to discontinue Celebrex due to its associated risks of hypertension, LA, CVA. At least some her symptoms are thought to also be related to polypharmacy, possibly exacerbating undiagnosed sleep apnea, possibly even with mild asterixis related to hypercarbia as described in her symptoms. This was not observed in the hospital while on decreased doses of her usual medications. She appears takes quite large doses of Dilaudid, 4 mg, 4-5 times a day, in addition to Xanax 0.5 mg 3 times a day, methocarbamol 1500 mg 3 times a day a day, sometimes 4. And also takes 10 mg of Ambien at night. Please assist her in cutting down a number of these dangerous medications and trying to switch to alternative treatments which may be safer. She is encouraged to follow-up with behavioral health to help her manage anxiety. She has also been going through quite a few traumatic events recently with all of her children passing away. We discussed monitoring for symptoms of depression, seeking help immediately. She is not suicidal at this time, without any thoughts of self-harm. She is grieving. She is given referral for follow-up with pain clinic due to chronic pain in her back after resection of lung cancer. We are initiating attempts to cut down on her pain medications. She is also given prescription for lidocaine patch. Please avoid Ambien doses of greater than 5 mg, and consider switching to other therapies. Treated for mild UTI with Rocephin in the hospital. Course of cefdinir prescribed on discharge. Please follow-up urine culture which is pending. She is requesting discharge today. She is feeling well. She did well with physical therapy and got recommendation for home exercise program. She is accompanied by [id number] who is visiting her here and will be keeping an eye on her after discharge. Due to noted mild hypoxia, possibly secondary to valvular heart disease in combination with history of COPD, lung cancer and lobectomy, recent COVID-19 pneumonia she was noted to be on low rate oxygen supplementation. We are assessing home oxygen study prior to discharge. Please see full study results and notes from hospitalization for details. Do not hesitate to reach out with questions. Physical Exam Narrative: EXAM NARRATIVE: Accompanied by [id number]. Const: COMMON NORMALS: no acute distress and patient oriented x3 GENERAL APPEARANCE: cooperative NUTRITIONAL APPEARANCE: obese ORIENTATION/CONSCIOUSNESS: Yes awake HENMT: COMMON NORMALS: oropharynx normal Neck/C-Spine: COMMON NORMALS: no meningeal signs and no JVD Resp: COMMON NORMALS: normal respiratory effort and clear to auscultation bilaterally AUSCULTATION: clear to auscultation bilaterally Cardio: COMMON NORMALS: no JVD, regular rhythm, S1 normal heart sound present, S2 normal heart sound present and No murmurs present (Cardio) RHYTHM: regular rhythm HEART SOUNDS: S1 normal heart sound present and S2 normal heart sound present GI: COMMON NORMALS: Normal to inspection, nondistended, normoactive bowel sounds present, Soft to palpation and non-tender PALPATION: Yes Soft to palpation Extremity: COMMON NORMALS: no joint enlargement and no pedal edema Neuro: COMMON NORMALS: patient oriented x3 and moves all extremities MENINGEAL SIGNS: Yes no meningeal signs COORDINATION/BALANCE: other (Mild dysmetria on the right) SPEECH: speech normal MOTOR EXAM: 5/5 motor strength present throughout and Pronator motor function present (RUE) OTHER: Visual villegas full to confrontation. Skin: COMMON NORMALS: no rashes or lesions noted GENERAL SKIN EXAM: no rashes or lesions noted Discharge Data Data Completed and Pending: Completed Studies During Hospitalization Category Date Time Status CT head wo con* [id number] Stat Cat Scan 08/09/20 14:06 Completed Sestamibi Stress Test Request Routi ne Exams 08/10/20 08:00 Draft XR chest 1V luis a ble [id number] Stat Exams 08/09/20 13:49 Completed NM abdirahman perf SPECT r/s* [id number] Routin e Nuc Med 08/10/20 21:25 Completed CV carotid duplex BI* [id number] Routine Ultrasound 08/10/20 21:25 Completed CV echo complete* [id number] Routine Ultrasound 08/10/20 21:25 Completed Pending at discharge Category Date Time Status Basic Metabolic P willian AM LABS Lab 08/11/20 04:00 Ordered Basic Metabolic P willian AM LABS Lab 08/12/20 04:00 Ordered Complete Blood Co unt w/Auto AM LABS Lab 08/11/20 04:00 Ordered Complete Blood Co unt w/Auto AM LABS Lab 08/12/20 04:00 Ordered Urine Culture Sta t Lab 08/09/20 14:34 Received Labs from last 24 hours 08/10/20 08/10/20 08/09/20 04:20 04:20 19:51 WBC 5.5 RBC 3.96 L Hgb 12.2 Hct 37.6 MCV 94.9 MCH 30.8 MCHC 32.4 RDW 12.6 Plt Count 118 L MPV 12.9 H Neut % (Auto) 46.4 Lymph % (Auto) 43.0 Anderson % (Auto) 7.5 Eos % (Auto) 2.4 Baso % (Auto) 0.5 Neut # (Auto) 2.55 Lymph # (Auto) 2.4 Anderson # (Auto) 0.4 Eos # (Auto) 0.1 Baso # (Auto) 0.0 Nucleated RBC % (a uto) 0 Nucleated RBCs # 0.0 Sodium 142 Potassium 3.8 Chloride 103 Carbon Dioxide 31 H Anion Gap 11.8 BUN 13 Creatinine 0.7 GFR Calculation 83.2 L Glucose 86 Calculated Osmolal ity 293 Calcium 8.6 Creatine Kinase Troponin T Hi Sens 6Hr Troponin T Hi Sens 6Hr Delta TSH 0.66 08/09/20 08/09/20 19:51 14:10 WBC RBC Hgb Hct MCV MCH MCHC RDW Plt Count MPV Neut % (Auto) Lymph % (Auto) Anderson % (Auto) Eos % (Auto) Baso % (Auto) Neut # (Auto) Lymph # (Auto) Anderson # (Auto) Eos # (Auto) Baso # (Auto) Nucleated RBC % (a uto) Nucleated RBCs # Sodium Potassium Chloride Carbon Dioxide Anion Gap BUN Creatinine GFR Calculation Glucose Calculated Osmolal ity Calcium Creatine Kinase 154 Troponin T Hi Sens 6Hr 35.03 H Troponin T Hi Sens 6Hr Delta -4.97 L TSH Vitals: Last Vital Signs Temp 97.6 F 08/10/20 15:16 Pulse 65 08/10/20 15:16 Resp 14 08/10/20 15:16 BP 165/79 08/10/20 15:16 Pulse Ox 96 08/10/20 15:16 Discharge Plan Discharge Patient Disposition: Home Condition: Stable Prescriptions: New amlodipine 5 mg tablet 5 mg PO DAILY PRN (Reason: blood pressure) Qty: 30 RF: 0 cefdinir 300 mg capsule 300 mg PO Q12H 4 Days Qty: 8 RF: 0 lidocaine 5 % adhesive patch,medicated 1 patch topical DAILY PRN (Reason: back pain) Qty: 15 RF: 0 Continued aspirin 81 mg tablet,delayed release (DR/EC) 81 mg PO DAILY@ RF: 0 carvedilol 12.5 mg Tablet 12.5 mg PO BID@ RF: 0 omeprazole 40 mg capsule,delayed release(DR/EC) 40 mg PO BID@ RF: 0 dicyclomine 10 mg capsule 10 mg PO Q4H PRN (Reason: stomach cramps) RF: 0 Changed hydromorphone [Dilaudid] 4 mg tablet 2 mg PO Q4H PRN (Reason: Pain) Qty: 0 RF: 0 zolpidem 10 mg Tablet 5 mg PO BEDTIME PRN (Reason: Sleep) Qty: 0 RF: 0 alprazolam 0.25 mg tablet 0.25 mg PO BID PRN (Reason: Anxiety) Qty: 0 RF: 0 methocarbamol 750 mg Tablet 750 mg PO TID PRN (Reason: Muscle Spasm) Qty: 0 RF: 0 Held atorvastatin 10 mg Tablet 10 mg PO DAILY@2099 RF: 0 Hold Instructions: Resume on 08/24/20. Discontinued celecoxib 200 mg capsule 200 mg PO BID@ RF: 0 Discharge Orders: Discharge Order (Routine); Ordered 08/10/20 Ordered By: Carlos Maynard Other Ambulatory Orders: CA cardiac event monitor (Routine) Timeframe: 1 Day Facility: [facility] - Location: Cardiac Diagnostic Laboratory Ordered By: Carlos Maynard MR head w con [id number] (Routine) Timeframe: 2 Days Facility: [facility] - Location: Radiology [facility] Ordered By: Carlos Maynard Sleep Study W Sleep Stage (Routine) Timeframe: 1 Week Location: None Selected Ordered By: Carlos Maynard Referrals: NEUROSCIENCE PROVIDERS [Provider Group] - 1 week ([facility] will contact you to schedule an follow-up appointment in 1 week. If you haven;t heard from them by morning. Please call ) PAIN MANAGEMENT PROVIDERS [Provider Group] - 1 week ( [facility] will contact you to schedule an follow-up appointment in 1 week. If you haven't heard from them by Morning . Please call [phone]) BEHAVIORAL HEALTH PROVIDERS, [Staff Physician] - 2 weeks ([facility] will be contacting you to schedule an appointment in 2 weeks. If you haven't heard from them by morning. Please call ) Poonam Haney MD [Physician] - 2 weeks ([facility] will contact you to schedule an follow-up appointment in 2 week and an 21 day Event Moniterto be placed. If you haven't heard froom them by tomorrow morning. Please call ) Yesy Shetty MD [Referring] - 4-7 days ([facility] will contact you to schedule an follow-up appointment in 4 to 7 days. If you haven't heard from them by morning,. Please call Also [facility] will contact you to schedule an outapatient Sleep Study and MRI. If you have not heard from them by Tomorrow afternoon. Please call ) Discharge Diet: Cardiac Discharge Activity: Increase activity as tolerated, As per PT/OT instructions and Oxygen as instructed Patient Instructions: Alprazolam (By mouth), Methocarbamol (By mouth), Hydromorphone (By mouth), Zolpidem (By mouth), Cefdinir (By mouth), Lidocaine Patch (On the skin), Coronary Artery Disease (GEN), Urinary Tract Infection in Women (DC), Ischemic Stroke (DC), Ischemic Stroke (GEN), Hypertension (DC), Hypertension (GEN), Weakness (Generalized) Activity Restrictions/Additional Instructions: Please monitor your blood pressure 3 times daily, write down values to bring to your appointment. Monitor your heart rates. If your blood pressures are persistently elevated despite taking medication, staying above 190 top number or above 100 low number, please seek medical attention without delay. If you ever experience any facial asymmetry, difficulty speaking, vision changes, weakness on one side of your body or numbness, please seek medical attention immediately. Please discontinue taking Celebrex as this medication may increase your risk for heart attack or stroke. Please discuss with your primary care doctor symptoms of generalized weakness, and discuss if there is any improvement after discontinuation of cholesterol medication. Please discuss initiation of a different cholesterol medication to continue to reduce risk of recurrent stroke and heart attack. Please discuss with your primary care doctor about trying to track down the records of the previous assessment of your heart with regards to possible septal defect. Please discuss with the heart doctor and neurologist as well. Please discuss with your primary care doctor results of sleep study. Please discuss with your primary care doctor and neurologist results of MRI of the brain. Please discuss with your primary care doctor regarding mild urinary tract infection noted in the hospital. Please have your primary care doctor follow-up the final urine culture. Please discuss with your primary care doctor reducing doses and changing medications to safer once for treatment of anxiety, chronic pain. Please do not increase the dose of Ambien beyond 5 mg. Consider switching to a different medication. Please discuss alternative treatments for anxiety apart from benzodiazepine which may lead to forming dependence, may affect your breathing, lead to suppression of breathing, retention of carbon dioxide, sometimes to a severe or life-threatening degree. Similarly these effects may be seen also with Dilaudid. Please be very cautious with use of muscle relaxant methocarbamol as this can also affect mental status. Please discuss with your doctor and primary care provider to follow-up on your EKG with noted QT prolongation. Please have your primary care doctor follow-up on the platelet level, which are noted mildly low during hospitalization. Discharge Attestations Time Spent in Discharge Care*: greater than 30 min Quality Metrics Clinical Quality Measures During this hospital stay, did patient experience: Stroke Contraindication to Antithrombotic: Antithrombotic prescribed Contraindication to Anticoagulation: Overlap treatment not indicated Contraindication to Statin: Adverse reaction to drug Coding Level of Care Code Acute Chg FW DC note Diagnoses CVA (cerebral vascular accident) I63.9 Generalized weakness R53.1 Elevated troponin R77.8 Uncontrolled hypertension I10 Polypharmacy Z79.899 UTI (urinary tract infection) N39.0 Thrombocytopenia D69.6 QT prolongation R94.31
[2020-08-10 20:47] LABS: Glucose Point of Care 123 mg/dL (70-110)
[2020-08-10] MEDS: ALPRAZolam 0.25 mg Tablet PO (21:10)
--- NOTE | 2020-08-10 21:25 | USCV_ITS ---
[place], [place] Age: 70 Gender: F : 1950 Exam Date: 08/10/2020 06:29 Ordering Phys: Carlos Maynard MD Technologist: Elinor Stanley [place] [facility] [place]ication: WEAKNESS BP: 128 / 65 HR: 59 Rhythm: Sinus Technical Quality: Fair MEASUREMENTS (Male / Female) Normal Values 2D ECHO LV Diastolic Diameter PLAX 5.1 cm 4.2 - 5.9 / 3.9 - 5.3 cm LV Systolic Diameter PLAX 4.0 cm LV Chamber Size 4.3 cm IVS Diastolic Thickness 1.2 cm 0.6 - 1.0 / 0.6 - 0.9 cm IVS Systolic Thickness 1.9 cm LVPW Diastolic Thickness 1.0 cm 0.6 - 1.0 / 0.6 - 0.9 cm LVPW Systolic Thickness 1.8 cm RV Chamber Size 3.1 cm LVOT Diameter 2.0 cm LV Ejection Fraction 2D Teich 27.9 % LV Ejection Fraction MOD 2C 46.8 % LV Ejection Fraction 2C AL 48.0 % LA Diameter 2.6 cm LA Width 2.8 cm LA Height 4.3 cm RA Width 3.0 cm RA Height 3.8 cm M-MODE LV Diastolic Diameter MM 5.3 cm 4.2 - 5.9 / 3.9 - 5.3 cm LV Systolic Diameter MM 3.5 cm LV Ejection Fraction MM Teich 62.6 % IVS Diastolic Thickness MM 1.4 cm 0.6 - 1.0 / 0.6 - 0.9 cm IVS Systolic Thickness MM 1.0 cm LVPW Diastolic Thickness MM 0.8 cm 0.6 - 1.0 / 0.6 - 0.9 cm LVPW Systolic Thickness MM 1.2 cm Aortic Annulus Diameter 3.1 cm LA Ao Ratio MM 0.8 MV E Point Septal Separation 0.9 cm DOPPLER AV Peak Velocity 131.0 cm/s LVOT Peak Velocity 105.0 cm/s AV Area Cont Eq vti 2.9 cm squared AV Area Cont Eq pk 2.5 cm squared MV Area PHT 3.3 cm squared Mitral E to A Ratio 1.1 MV E' Velocity 41.5 cm/s Mitral E to MV E' Ratio 12.7 Mitral E to LV E' Lateral Ratio 11.2 Mitral E to LV E' Septal Ratio 14.7 TR Peak Velocity 265.5 cm/s TR Peak Gradient 28.2 mmHg TR Mean Velocity 214.0 cm/s TR Mean Gradient 20.5 mmHg TR Velocity Time Integral 74.9 cm TV Peak E Velocity 48.0 cm/s Right Atrial Pressure 3.0 mmHg Pulmonary Artery Systolic Pressu 31.2 mmHg PV Peak Velocity 84.0 cm/s RV Acceleration Time 0.1 s RV Ejection Time 0.3 s RV AcT/ET 0.3 FINDINGS Left Ventricle Normal left ventricular cavity size. Normal left ventricular systolic function. No regional wall motion abnormalities. Left ventricular ejection fraction is estimated at 62 %. Grade I/IV diastolic dysfunction (abnormal relaxation filling pattern), normal to mildly elevated filling pressures. Right Ventricle The right ventricle is normal in size and function. Right Atrium The right atrium is normal in size. Left Atrium Moderately increased left atrial size. Mitral Valve Moderately thickened mitral valve. No mitral valve stenosis. Moderate mitral valve regurgitation. Aortic Valve Moderate aortic valve calcification. No aortic valve stenosis. Moderate aortic valve regurgitation. Tricuspid Valve Structurally normal tricuspid valve without significant stenosis or regurgitation. Pulmonary artery systolic pressure is normal. Pulmonic Valve Structurally normal pulmonic valve without significant stenosis. There is no pulmonic regurgitation. Pericardium Normal pericardium without effusion. Aorta Normal ascending aorta dimension. CONCLUSIONS 1-Normal left ventricular cavity size. Normal left ventricular systolic function. No regional wall motion abnormalities. Left ventricular ejection fraction is estimated at 62 %. Grade I/IV diastolic dysfunction (abnormal relaxation filling pattern), normal to mildly elevated filling pressures. 2-Moderately increased left atrial size. 3-Moderate aortic valve calcification. No aortic valve stenosis. Moderate aortic valve regurgitation. 4-Moderately thickened mitral valve. No mitral valve stenosis. Moderate mitral valve regurgitation. 5-There is no pericardial effusion. 6-Right atrial pressure is around 5 mm of mercury. 7-There are no prior echocardiogram studies to compare. Poonam Haney MD (Electronically Signed) Final Date: 10 August 2020 17:40 S
--- NOTE | 2020-08-10 21:25 | NMCV_ITS ---
NM abdirahman perf SPECT r/s* [id number] Ness Graham Age: 70 Gender: F : 1950 Exam Date: 08/10/2020 07:33 Ordering Phys: Carlos Maynard MD Technologist: FATOU Blevins Exam Location: [facility] Indications: Weakness, numbness rt side STRESS TEST Please [facility] for [facility] findings IMAGE PROTOCOL Rest/Stress 1 Lexiscan Day Radiopharmaceutical Dose (mCi) Administration Site Administered by Rest: Tc-99m 10.8 IV FATOU Thacker Sestamibi Stress:Tc-99m 32.9 IV FATOU Blevins Sestamicresencio Rest: 10-Aug-2020 Discovery 630 Stress: 10-Aug-2020 Discovery 630 0.4mg Lexiscan. Images obtained in supine and prone position. SPECT RESULTS Technical Quality: Good Raw Data Analysis: Breast attenuation Image Corrections: No attenuation or motion correction applied Summed Stress Score: 0 Summed Rest Score: 0 Summed Difference Score: 0 PERFUSION FINDINGS Small area of fixed perfusion defect noted in basal to mid anterior wall on both rest and stress images suggestive of old myocardial infarction versus artifact FUNCTIONAL RESULTS (calculated via Gated SPECT) Stress Image LV EF (%): 64 Stress EDV (mL):78 TID: 0.94 Stress ESV (mL):28 Rest Image LV EF (%): 64 FUNCTIONAL FINDINGS: There is normal left ventricular systolic function. IMPRESSIONS Small area of fixed perfusion defect noted in basal to mid anterior wall on both rest and stress images suggestive of old myocardial infarction versus artifact. In the absence of wall motion abnormality most likely it could be an artifact. This study is negative for ischemia. EKG segment will be documented separately. Poonam Haney MD (Electronically Signed) Final Date: 10 August 2020 14:47 S
--- NOTE | 2020-08-10 21:25 | USCV_ITS ---
[place] Age: 70 Gender: F : 1950 Exam Date: 08/10/2020 06:06 Ordering Phys: Carlos Maynard MD Technologist: Aleah Armijo [place]am [place] [facility] [place]ication: CVA Risk Factors: Previous Vascular Surgery: Right Brachial BP: / Left Brachial BP: / Right Left Velocity (cm/s) Spectral Plaque Velocity (cm/s) Spectral Plaque Syst/Diast Broadening Syst/Diast Broadening 141.10/13.20 Prox CCA 152.50/ 25.00 86.20/ 17.10 Mid CCA 93.80 / 23.40 79.20/ 22.50 Distal CCA 87.10 / 24.30 57.80/ 13.80 Prox ICA 47.00 / 12.80 55.90/ 12.50 Mid ICA 95.50 / 35.10 52.90/ 16.50 Distal ICA 41.00 / 17.00 51.30 ECA 88.10 0.41 ICA/CCA 0.63 Antegrade Vertebral Antegrade 24.00/ 8.10 cm/s 34.80/ 11.20 cm/s Tri Subclavian Tri 99.90 163.5 0 CONCLUSIONS Right ICA stenosis <50%. Mild atheromatous plaque right carotid bulb/ICA. Left ICA stenosis <50%. Mild atheromatous plaque left carotid bulb/ICA. Normal antegrade Doppler flow noted in the right vertebral artery. Normal antegrade Doppler flow noted in the left vertebral artery. Paramjit Elkins MD (Electronically Signed) Final Date: 10 August 2020 17:07 S
[2020-08-10] MEDS: cefTRIAXone 1,000 MG in sodium chloride 0.9% (plus) 50 ML 100 MG IV (21:28)
[2020-08-11] VITALS (10 sets, daily range): BP systolic 129–156; BP diastolic 78–107; PULSE 58–67; RESP 14–22; TEMP 36.3–36.6; O2SAT 93–97
[2020-08-11] MEDS: morphine 4 mg/mL SDV 1 mL 2 MG IVP (02:37)
[2020-08-11 04:52] LABS: Basophils % 0.3 %; Eosinophils # 0.1 10^3/uL (0.0-0.8); Eosinophils % 1.7 %; Hematocrit 38.9 % (37.0-47.0); Hemoglobin 12.7 g/dL (11.5-15.3); Lymphocytes # 2.8 10^3/uL (0.8-4.8); Mean Corpuscular HGB Conc 32.6 g/dL (30.0-36.0); Mean Corpuscular Hemoglobin 30.9 pg (28.0-34.0); Mean Corpuscular Volume 94.6 fL (81-99); Mean Platelet Volume 12.7 fL (7.4-10.4); Monocytes # 0.5 10^3/uL (0.2-0.9); Monocytes % 8.3 %; Neutrophils # 2.89 10^3/uL (1.8-7.7); Neutrophils % 45.5 %; Nucleated Red Blood Cells % 0 %; Platelet Count 132 10^3/cmm (130-400); Red Blood Count 4.11 10^6/uL (4.1-5.3); Red Cell Distribution Width 12.7 % (12.1-15.1); White Blood Count 6.4 10^3/uL (4.0-10.0)
[2020-08-11 05:07] LABS: Anion Gap 11.5 (5-19); Blood Urea Nitrogen 11 mg/dL (8-23); Calcium 8.9 mg/dL (8.5-10.5); Carbon Dioxide 31 mmol/L (22-29); Chloride 104 mmol/L (98-107); Glomerular Filtration Rate 83.2 mL/min (90-130); Glucose 91 mg/dL (65-115); Osmolality Calculated 295 mOsm/kg (285-295); Potassium 3.5 mmol/L (3.5-5.1); Sodium 143 mmol/L (136-145)
[2020-08-11] MEDS: heparin 5,000 unit/mL INJ 1 mL 5000 UNIT SUBCUT (05:51)
[2020-08-11] MEDS: carvedilol 12.5 mg Tablet PO (05:51)
[2020-08-11] MEDS: pantoprazole DR 40 mg Tablet PO (05:51)
[2020-08-11 06:37] LABS: Glucose Point of Care 84 mg/dL (70-110)
[2020-08-11] MEDS: aspirin 325 mg Tablet PO (08:30)
[2020-08-11] MEDS: acetaminophen 325 mg Tablet 650 MG PO (09:57)
[2020-08-11] MEDS: ALPRAZolam 0.25 mg Tablet PO (09:57)
--- NOTE | 2020-08-11 11:21 | P.PN_ITS ---
Subjective Subjective: Interval history: Was discharged on 08/10, please refer to discharge summary from that day. Did not end up leaving the evening as is requiring oxygen with exertion with had to be set up this morning. She is doing well today. No new symptoms. Eager to be returning home. Awaiting arrangements for oxygen with exertion, which she was not surprised about, and anticipated previously since was told in the past she may require oxygen with activity. Vitals/I&O/Wt Last Vital Signs Temp 97.6 F 08/11/20 10:57 Pulse 58 L 08/11/20 10:57 Resp 20 H 08/11/20 10:57 BP 156/85 08/11/20 10:57 Pulse Ox 96 08/11/20 10:57 08/10/20 08/11/20 08/11/20 22:59 06:59 14:59 Intake Total 410 / 530 480 / 1010 660 / 660 Output Total 400 / 400 600 / 1000 Balance 10 / 130 -120 / 10 660 / 660 Weight last 48 hrs Weight 89.811 kg Physical Exam Const: COMMON NORMALS: no acute distress and patient oriented x3 GENERAL APPEARANCE: cooperative NUTRITIONAL APPEARANCE: obese ORIENTATION/CONSCIOUSNESS: Yes awake HENMT: COMMON NORMALS: oropharynx normal Neck/C-Spine: COMMON NORMALS: no meningeal signs and no JVD Resp: COMMON NORMALS: normal respiratory effort and clear to auscultation bilaterally AUSCULTATION: clear to auscultation bilaterally Cardio: COMMON NORMALS: no JVD, regular rhythm, S1 normal heart sound present, S2 normal heart sound present and No murmurs present (Cardio) RHYTHM: regular rhythm HEART SOUNDS: S1 normal heart sound present and S2 normal heart sound present GI: COMMON NORMALS: Normal to inspection, nondistended, normoactive bowel sounds present, Soft to palpation and non-tender PALPATION: Yes Soft to palpation Extremity: COMMON NORMALS: no joint enlargement and no pedal edema Neuro: COMMON NORMALS: patient oriented x3 and moves all extremities MENINGEAL SIGNS: Yes no meningeal signs SPEECH: speech normal Skin: COMMON NORMALS: no rashes or lesions noted GENERAL SKIN EXAM: no rashes or lesions noted Data : 08/11/20 04:18 08/11/20 04:18 Micro: Microbiology 08/09/20 14:34 Urine Culture - Preliminary Urine,Clean Catch Gram Negative Rods A&P Assessment and plan (1) CVA (cerebral vascular accident): Status: Acute (2) Generalized weakness: Status: Acute (3) Elevated troponin: Status: Acute (4) Uncontrolled hypertension: Status: Acute (5) Polypharmacy: Status: Acute (6) UTI (urinary tract infection): Status: Acute (7) Thrombocytopenia: Status: Acute (8) QT prolongation: Status: Acute Additional A&P Information Hypoxia with exertion: Set up for oxygen was returned at 3 L nasal cannula. Has history of lung malignancy with left lung lobectomy, COPD, as well as now noted valvular heart disease. Recently went through COVID-19. Attestations Medical Necessity Statement*: Returning home. 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
--- NOTE | 2020-08-11 12:45 | PC.NURSE ---
Home delivered patients home O2 and explained to her how to use the machine. Pt was wheeled out via wheelchair to the surgical services exit and left with granddaughter. Pt vital signs were stable upon departure. Nurse discussed discharge instructions and follow up appointments, patient understood and did not have any questions or concerns.
== END 2020-08-11 12:00 | disposition home or self-care (01) | DRG 65 ==
LOC: ER 19:05 → CSU 08-10 06:49
PROVIDERS: Admitting Provider Internal Medicine; Emergency Provider Family Medicine; Visit Provider Internal Medicine
DX: I63.9 Cerebral infarction, unspecified (principal); N39.0 Urinary tract infection, site not specified; G81.90 Hemiplegia, unspecified affecting unspecified side; I24.8 Other forms of acute ischemic heart disease; I10 Essential (primary) hypertension; D69.6 Thrombocytopenia, unspecified; R94.31 Abnormal electrocardiogram [ECG] [EKG]; Z79.899 Other long term (current) drug therapy; Z86.16 Personal history of COVID-19; Z85.118 Personal history of other malignant neoplasm of bronchus and lung; Z90.2 Acquired absence of lung [part of]; J44.9 Chronic obstructive pulmonary disease, unspecified; R29.810 Facial weakness; E78.5 Hyperlipidemia, unspecified; F41.9 Anxiety disorder, unspecified; G47.00 Insomnia, unspecified; Z87.891 Personal history of nicotine dependence; R47.1 Dysarthria and anarthria; I25.10 Atherosclerotic heart disease of native coronary artery without angina pectoris
CPT/HCPCS: 36415; 36416; 70450; 71045; 78452; 80048; 80053; 80306; 81001; 82550; 82962; 84443; 84484; 85025; 85610; 85730; 87077; 87086; 87186; 92523; 92610; 93005; 93017; 93306; 93880; 96372; 97110; 97116; 97161; 97165; 97530; 99285; A9500; J0696; J1644; J2270; J2785

== ENCOUNTER → 2020-09-08 11:16 | Outpatient (BNVA) | payer BC, SELFPAY | PROVIDERS: PCP Family Medicine; Visit Provider Nurse Practitioner Family | DX: I50.32 Chronic diastolic (congestive) heart failure (principal) | CPT/HCPCS: 80048; 83880 ==

== ENCOUNTER 2021-03-31 06:50 | Observation (INO) | payer SELFPAY ==
[2021-03-31] VITALS (67 sets, daily range): BP systolic 85–167; BP diastolic 49–98; PULSE 75–97; RESP 3–25; TEMP 36.8–37.3; O2SAT 87–96; BMI 36.0
--- NOTE | 2021-03-31 07:06 | ECG_ITS ---
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 Measurements Intervals [place] Rate: 83 P: 48 PA: 163 QRS: 25 QRSD: 88 T: -17 QT: 372 QTc: 438 Interpretive Statements SINUS RHYTHM Compared to ECG 08/09/2020 18:16:25 Sinus bradycardia no longer present T-wave abnormality no longer present Possible ischemia no longer present Prolonged QT interval no longer present Electronically Signed On 03-31-2021 17:08:11 CDT by Wojciech Garcia M.D. [id number]
--- NOTE | 2021-03-31 07:06 | XR_ITS ---
WS: [id number] Portable AP upright chest, 03/31/2021 Clinical Data: dyspnea/cough Comparison: Portable chest, 08/09/2020. Findings: No nodules, masses or effusions are seen. The heart is normal. The pulmonary vascularity is not increased. No pneumonia or pneumothorax is seen. The aortic arch is tortuous. Monitor leads are on the chest wall. The patient has had an anterior cervical disc fusion. XR/XR chest 1V portable [id number] Impression: Atherosclerosis.
--- NOTE | 2021-03-31 07:06 | CT_ITS ---
WS: [id number] CT HEAD TECHNIQUE: Noncontrast CT of the head obtained from the skullbase to the vertex. CLINICAL INFORMATION: AMS COMPARISON: CT August 09, 2020 DLP: 887.[address] scans at [facility] use at least one of these dose optimization techniques: automated e xposure control; mA and/or kV adjustment per patient size (includes targeted exams where dose is matc hed to clinical indication); or iterative reconstruction. FINDINGS: No evidence of intracranial hemorrhage or mass effect. Ventricular system and basal cisterns are weber nt. Mild small vessel changes with mild parenchymal volume loss. No extra-axial fluid collections. No evidence of mass or mass effect. Normal sutherland-white differentiation. Incidental slightly low-lying ce rebellar tonsils unchanged. Paranasal sinuses and mastoid air cells are well aerated. Normal visualized soft tissues. Intracrania l vascular calcification. CT/CT head wo con* [id number] IMPRESSION: 1. No evidence of intracranial hemorrhage or mass effect. 2. Mild small vessel changes. Mild parenchymal volume loss. 3. No acute findings and no changes compared to previous.
--- NOTE | 2021-03-31 07:07 | ED_ITS ---
HPI - Altered Mental Status General: Chief Complaint: Altered Mental Status Stated Complaint: OD Time Seen by Provider: 03/31/21 07:06 History of Present Illness: HPI narrative: 70-year-old female arrives via EMS after being found at home by several friends unresponsive. They had called 911 were advised to begin CPR per the report of EMS they stopped CPR when the patient cried out in pain. She is lethargic and altered on arrival field report was her blood glucose was 70 on arrival here it is 159. She was given Narcan in the field and did have somewhat of a response but is now lethargic again she has multiple medication bottles brought in by EMS including Dilaudid Xanax methocarbamol and Ambien. There are 2 bottles with a large number of different random pills some of which are broken in half none of which are identifiable by label on the bottle. MD complaint: altered mental status and confusion Onset (ago): unknown Severity: severe Consistency of symptoms: Constant Context: history of similar presentation Treatments prior to arrival: oxygen and other (Narcan) Review of Systems General: Reports: ROS unobtainable due to mental status PFSH ED PFSH: Medical History (Updated 04/06/21 @ 07:42 by Chad Albarran DO) Accidental overdose Acute insomnia Anxiety Aortic regurgitation CHF (congestive heart failure), NYHA class II Chronic back pain COPD (chronic obstructive pulmonary disease) CVA (cerebral vascular accident) Elevated troponin Generalized weakness GERD (gastroesophageal reflux disease) History of lung cancer History of lung cancer in adulthood Hyperlipidemia Hypertension Mitral regurgitation Polypharmacy QT prolongation Thrombocytopenia Uncontrolled hypertension Surgical History H/O carpal tunnel repair H/O: hysterectomy History of appendectomy History of cholecystectomy History of lung surgery History of neck surgery History of tonsillectomy Family History Father , CABG CAD (coronary artery disease) Daughter CAD (coronary artery disease) Daughter CAD (coronary artery disease) Social History Smoking and tobacco status: former smoker Alcohol intake: never Lives independently: Yes Marital status: Physical Exam HENMT: COMMON NORMALS: normocephalic, atraumatic and hearing grossly normal bilaterally HEAD & SCALP: normocephalic and atraumatic Eye: COMMON NORMALS: conjunctivae normal and no scleral icterus CONJUNCTIVA: Yes conjunctivae normal PUPIL: Yes Pinpoint pupils Neck/C-Spine: COMMON NORMALS: no JVD Resp: COMMON NORMALS: normal respiratory effort, No retractions, No use of accessory muscles and clear to auscultation bilaterally AUSCULTATION: clear to auscultation bilaterally Cardio: COMMON NORMALS: no JVD, regular rate, regular rhythm and No murmurs present (Cardio) RATE: regular rate RHYTHM: regular rhythm GI: COMMON NORMALS: Soft to palpation and No hepatosplenomegaly present AUSCULTATION: Yes normoactive bowel sounds PALPATION: Yes Soft to palpation, No Tenderness to palpation present (GI), No Guarding due to palpation present (GI) and Yes No hepatosplenomegaly present Extremity: COMMON NORMALS: normal to inspection, capillary refill normal, no clubbing, cyanosis or edema, no calf tenderness and no pedal edema Skin: COMMON NORMALS: no rashes or lesions noted GENERAL SKIN EXAM: no rashes or lesions noted Course Vital Signs: Vital signs: Vital Signs Temperature 98.0 F 04/03/21 07:39 Pulse Rate 70 04/03/21 07:55 Respiratory Rate 16 04/03/21 10:52 Blood Pressure 160/84 04/03/21 07:39 Pulse Oximetry 91 04/03/21 10:52 MDM - Altered Mental Status MDM Narrative: Medical decision making narrative: Labs imaging EKG reviewed with patient and family. We did give her Narcan early on she improved with that. Reviewing her medications multiple sedating medications. She did wake up enough to be able to talk to us initially she was too sedated even give a history. She denies any intentional overdose. Discussed with hospitalist orders written. She does have a bump in her troponin although she has no chest pain will finish out the rule out. Lab Data: Labs: Lab Results 03/31/21 03/31/21 03/31/21 06:58 07:02 07:02 WBC 10.6 10^3/uL H 10 ^3/uL (4.0-10.0) RBC 4.46 10^6/uL 10^6 /uL (4.1-5.3) Hgb 14.6 g/dL g/dL (11.5-15.3) Hct 44.7 % % (37.0-47.0) MCV 100.2 fl H fl (81-99) MCH 32.7 pg pg (28.0-34.0) MCHC 32.7 g/dL g/dL (30.0-36.0) RDW 12.8 % % (12.1-15.1) Plt Count 140 10^3/cmm 10^3 /cmm (130-400) MPV 12.4 fL H fL (7.4-10.4) Neut % (Auto) 77.4 % % Lymph % (Auto) 15.2 % % [place] % (Auto) 6.8 % % Eos % (Auto) 0.0 % % Baso % (Auto) 0.2 % % Neut # (Auto) 8.20 10^3/uL H 10 ^3/uL (1.8-7.7) Lymph # (Auto) 1.6 10^3/uL 10^3/ uL (0.8-4.8) [place] # (Auto) 0.7 10^3/uL 10^3/ uL (0.2-0.9) Eos # (Auto) 0.0 10^3/uL 10^3/ uL (0.0-0.8) Baso # (Auto) 0.0 10^3/uL 10^3/ uL (0.0-0.1) Nucleated RBC % (a uto) 0 % % Nucleated RBCs # 0.0 /100WBC /100W BC Specimen Type Sample Site ABG pH ABG pCO2 ABG pO2 ABG HCO3 ABG O2 Saturation ABG Base Excess Josias Test A-a O2 Gradient Hematocrit Hgb O2 Saturation Carboxyhemoglobin Methemoglobin Total Hemoglobin Ionized Calcium O2 Delivery Device O2 Liters/Min FiO2 Auto Body Repair Estimator ID Sodium Potassium Chloride Carbon Dioxide Anion Gap BUN Creatinine GFR Calculation Glucose POC Glucose 159 mg/dL H mg/dL (70-110) Calculated Osmolal ity Lactic Acid 2.1 mmol/L mmol/L (0.5-2.2) Lactic Acid (Sepsi s) Calcium Magnesium Total Bilirubin AST ALT Alkaline Phosphata se Creatine Kinase Troponin T Baselin e Troponin T 120 Min [place] Troponin T Total Protein Albumin Globulin Lipase TSH Urine Color Urine Appearance Urine pH Ur Specific Gravit y Urine Protein Urine Glucose (UA) Urine Ketones Urine Blood Urine Nitrate Urine Bilirubin Urine Urobilinogen Ur Leukocyte Mabel ase Salicylates Urine Opiates Scre en Acetaminophen Ur Barbiturates Sc reen Ur Phencyclidine S crn Ur Amphetamines Sc reen U Benzodiazepines Scrn Urine Cocaine Scre en U Marijuana (THC) Screen Ethyl Alcohol Nasal/Oral COVID-1 9 PCR Hepatitis A IgM Ab Hep Bs Antigen Hep B Core IgM Ab Hepatitis C Antibo dy SARS-CoV-2 Ag (Rap id) 03/31/21 03/31/21 03/31/21 07:02 07:02 07:02 WBC RBC Hgb Hct MCV MCH MCHC RDW Plt Count MPV Neut % (Auto) Lymph % (Auto) [place] % (Auto) Eos % (Auto) Baso % (Auto) Neut # (Auto) Lymph # (Auto) [place] # (Auto) Eos # (Auto) Baso # (Auto) Nucleated RBC % (a uto) Nucleated RBCs # Specimen Type Sample Site ABG pH ABG pCO2 ABG pO2 ABG HCO3 ABG O2 Saturation ABG Base Excess Josias Test A-a O2 Gradient Hematocrit Hgb O2 Saturation Carboxyhemoglobin Methemoglobin Total Hemoglobin Ionized Calcium O2 Delivery Device O2 Liters/Min FiO2 Auto Body Repair Estimator ID Sodium 138 mmol/L mmol/L (136-145) Potassium 4.6 mmol/L mmol/L (3.5-5.1) Chloride 97 mmol/L L mmol/ L (98-107) Carbon Dioxide 27 mmol/L mmol/L (22-29) Anion Gap 18.6 (5-19) BUN 25 mg/dL H mg/dL (8-23) Creatinine 2.2 mg/dL H mg/dL (0.5-0.9) GFR Calculation 22.2 mL/min L mL/ min (90-130) Glucose 72 mg/dL mg/dL (65-115) POC Glucose Calculated Osmolal ity 289 mOsm/kg mOsm/ kg (285-295) Lactic Acid Lactic Acid (Sepsi s) Calcium 8.4 mg/dL L mg/dL (8.5-10.5) Magnesium 2.0 mg/dL mg/dL (1.7-2.3) Total Bilirubin 0.3 mg/dL mg/dL (0.15-1.2) AST 1805 U/L H U/L (0-32) ALT 1119 U/L H U/L (0-33) Alkaline Phosphata se 120 IU/L H IU/L (35-105) Creatine Kinase 279 U/L H U/L (26-192) Troponin T Baselin e 58 ng/L H ng/L (0-10) Troponin T 120 Min [place] Delta Troponin T Total Protein 7.2 g/dL g/dL (6.6-8.7) Albumin 4.3 g/dL g/dL (3.5-5.2) Globulin 2.9 g/dL g/dL (1.3-4.6) Lipase 109 U/L H U/L (13-60) TSH Urine Color Urine Appearance Urine pH Ur Specific Gravit y Urine Protein Urine Glucose (UA) Urine Ketones Urine Blood Urine Nitrate Urine Bilirubin Urine Urobilinogen Ur Leukocyte Mabel ase Salicylates Urine Opiates Scre en Acetaminophen Ur Barbiturates Sc reen Ur Phencyclidine S crn Ur Amphetamines Sc reen U Benzodiazepines Scrn Urine Cocaine Scre en U Marijuana (THC) Screen Ethyl Alcohol < 10 mg/dL mg/dL (0-10) Nasal/Oral COVID-1 9 PCR Hepatitis A IgM Ab Non-reactive (Nonreactive) Hep Bs Antigen Non-reactive (Nonreactive) Hep B Core IgM Ab Non-reactive (Nonreactive) Hepatitis C Antibo dy Non-reactive (Nonreactive) SARS-CoV-2 Ag (Rap id) 03/31/21 03/31/21 03/31/21 07:02 07:09 07:14 WBC RBC Hgb Hct MCV MCH MCHC RDW Plt Count MPV Neut % (Auto) Lymph % (Auto) [place] % (Auto) Eos % (Auto) Baso % (Auto) Neut # (Auto) Lymph # (Auto) [place] # (Auto) Eos # (Auto) Baso # (Auto) Nucleated RBC % (a uto) Nucleated RBCs # Specimen Type Arterial Sample Site Radial, left ABG pH 7.36 (7.35-7.45) ABG pCO2 40.2 mmHg mmHg (35-45) ABG pO2 55.6 mmHg L mmHg (80.0-100.0) ABG HCO3 22.4 mmol/L mmol/ L (22-26) ABG O2 Saturation 91.2 ABG Base Excess -2.9 mmol/L L mmo l/L (-2.0-2.0) Josias Test Pos A-a O2 Gradient 20.1 mmHg H mmHg (5-10) Hematocrit 42.0 % % (37-47) Hgb O2 Saturation 90.1 % L % (95-100) Carboxyhemoglobin 0.9 %THgb %THgb (0.4-20.1) Methemoglobin 0.3 % L % (0.4-1.5) Total Hemoglobin 13.7 g/dL g/dL (12-16) Ionized Calcium 1.1 mmol/L mmol/L (1.1-1.4) O2 Delivery Device Nc O2 Liters/Min 4.0 % % FiO2 36.0 % % Auto Body Repair Estimator ID Cak Sodium 139.0 mmol/L mmol /L (131-143) Potassium 4.4 mmol/L mmol/L (3.5-5.0) Chloride Carbon Dioxide Anion Gap BUN Creatinine GFR Calculation Glucose 83.0 mg/dL mg/dL (70-115) POC Glucose Calculated Osmolal ity Lactic Acid Lactic Acid (Sepsi s) Calcium Magnesium Total Bilirubin AST ALT Alkaline Phosphata se Creatine Kinase Troponin T Baselin e Troponin T 120 Min [place] Troponin T Total Protein Albumin Globulin Lipase TSH Urine Color Yellow (Yellow) Urine Appearance Clear (CLEAR) Urine pH 5 (5-7) Ur Specific Gravit y 1.015 (1.005-1.030) Urine Protein Neg (Negative) Urine Glucose (UA) Norm (Normal) Urine Ketones Negative (Negative) Urine Blood Neg (Negative) Urine Nitrate Negative (Negative) Urine Bilirubin 1+ H (Negative) Urine Urobilinogen Norm mg/dL mg/dL (Negative) Ur Leukocyte Mabel ase Negative (Negative) Salicylates 0.9 mg/dL L mg/dL (3-10) Urine Opiates Scre en Acetaminophen < 5.0 ug/mL L ug/ mL (10-30) Ur Barbiturates Sc reen Ur Phencyclidine S crn Ur Amphetamines Sc reen U Benzodiazepines Scrn Urine Cocaine Scre en U Marijuana (THC) Screen Ethyl Alcohol Nasal/Oral COVID-1 9 PCR Hepatitis A IgM Ab Hep Bs Antigen Hep B Core IgM Ab Hepatitis C Antibo dy SARS-CoV-2 Ag (Rap id) 03/31/21 03/31/21 03/31/21 07:14 09:25 09:25 WBC RBC Hgb Hct MCV MCH MCHC RDW Plt Count MPV Neut % (Auto) Lymph % (Auto) [place] % (Auto) Eos % (Auto) Baso % (Auto) Neut # (Auto) Lymph # (Auto) [place] # (Auto) Eos # (Auto) Baso # (Auto) Nucleated RBC % (a uto) Nucleated RBCs # Specimen Type Sample Site ABG pH ABG pCO2 ABG pO2 ABG HCO3 ABG O2 Saturation ABG Base Excess Josias Test A-a O2 Gradient Hematocrit Hgb O2 Saturation Carboxyhemoglobin Methemoglobin Total Hemoglobin Ionized Calcium O2 Delivery Device O2 Liters/Min FiO2 Auto Body Repair Estimator ID Sodium Potassium Chloride Carbon Dioxide Anion Gap BUN Creatinine GFR Calculation Glucose POC Glucose Calculated Osmolal ity Lactic Acid Lactic Acid (Sepsi s) Calcium Magnesium Total Bilirubin AST ALT Alkaline Phosphata se Creatine Kinase Troponin T Baselin e Troponin T 120 Min [place] 49.73 ng/L H ng/L (0-10) Delta Troponin T -8.27 ABS# L ABS# (0-10) Total Protein Albumin Globulin Lipase TSH 1.08 uIU/mL uIU/m L (0.27-4.20) Urine Color Urine Appearance Urine pH Ur Specific Gravit y Urine Protein Urine Glucose (UA) Urine Ketones Urine Blood Urine Nitrate Urine Bilirubin Urine Urobilinogen Ur Leukocyte Mabel ase Salicylates Urine Opiates Scre en Positive ng/mL H ng/mL (Negative) Acetaminophen Ur Barbiturates Sc reen Negative ng/mL ng /mL (Negative) Ur Phencyclidine S crn Negative ng/mL ng /mL (Negative) Ur Amphetamines Sc reen Negative ng/mL ng /mL (Negative) U Benzodiazepines Scrn Positive ng/mL H ng/mL (Negative) Urine Cocaine Scre en Negative ng/mL ng /mL (Negative) U Marijuana (THC) Screen Negative ng/mL ng /mL (Negative) Ethyl Alcohol Nasal/Oral COVID-1 9 PCR Hepatitis A IgM Ab Hep Bs Antigen Hep B Core IgM Ab Hepatitis C Antibo dy SARS-CoV-2 Ag (Rap id) 03/31/21 03/31/21 03/31/21 10:40 10:43 10:43 WBC RBC Hgb Hct MCV MCH MCHC RDW Plt Count MPV Neut % (Auto) Lymph % (Auto) [place] % (Auto) Eos % (Auto) Baso % (Auto) Neut # (Auto) Lymph # (Auto) [place] # (Auto) Eos # (Auto) Baso # (Auto) Nucleated RBC % (a uto) Nucleated RBCs # Specimen Type Sample Site ABG pH ABG pCO2 ABG pO2 ABG HCO3 ABG O2 Saturation ABG Base Excess Josias Test A-a O2 Gradient Hematocrit Hgb O2 Saturation Carboxyhemoglobin Methemoglobin Total Hemoglobin Ionized Calcium O2 Delivery Device O2 Liters/Min FiO2 Auto Body Repair Estimator ID Sodium Potassium Chloride Carbon Dioxide Anion Gap BUN Creatinine GFR Calculation Glucose POC Glucose Calculated Osmolal ity Lactic Acid Lactic Acid (Sepsi s) 1.4 mmol/L mmol/L (0.5-2.2) Calcium Magnesium Total Bilirubin AST ALT Alkaline Phosphata se Creatine Kinase Troponin T Baselin e Troponin T 120 Min [place] Troponin T Total Protein Albumin Globulin Lipase TSH Urine Color Urine Appearance Urine pH Ur Specific Gravit y Urine Protein Urine Glucose (UA) Urine Ketones Urine Blood Urine Nitrate Urine Bilirubin Urine Urobilinogen Ur Leukocyte Mabel ase Salicylates Urine Opiates Scre en Acetaminophen Ur Barbiturates Sc reen Ur Phencyclidine S crn Ur Amphetamines Sc reen U Benzodiazepines Scrn Urine Cocaine Scre en U Marijuana (THC) Screen Ethyl Alcohol Nasal/Oral COVID-1 9 PCR Not detected Hepatitis A IgM Ab Hep Bs Antigen Hep B Core IgM Ab Hepatitis C Antibo dy SARS-CoV-2 Ag (Rap id) Negative (Negative) Discharge Plan Discharge Patient Disposition: Admitted As Inpatient Admit Provider: Cyrus Gillis Clinical Impression: Altered mental status, Drug overdose, ONEIL (acute kidney injury), Elevated troponin, Elevated liver transaminase level Condition: Stable Discharge Diet: Cardiac Discharge Activity: Increase activity as tolerated Coding Level of Care Code ED Play Back Operator for Chg Fwd Exam Comprehensive
[2021-03-31 07:13] LABS: Basophils % 0.2 %; Hematocrit 44.7 % (37.0-47.0); Hemoglobin 14.6 g/dL (11.5-15.3); Lymphocytes # 1.6 10^3/uL (0.8-4.8); Lymphocytes % 15.2 %; Mean Corpuscular HGB Conc 32.7 g/dL (30.0-36.0); Mean Corpuscular Hemoglobin 32.7 pg (28.0-34.0); Mean Corpuscular Volume 100.2 fl (81-99); Mean Platelet Volume 12.4 fL (7.4-10.4); Monocytes # 0.7 10^3/uL (0.2-0.9); Monocytes % 6.8 %; Neutrophils % 77.4 %; Nucleated Red Blood Cells % 0 %; Platelet Count 140 10^3/cmm (130-400); Red Blood Count 4.46 10^6/uL (4.1-5.3); Red Cell Distribution Width 12.8 % (12.1-15.1); White Blood Count 10.6 10^3/uL (4.0-10.0)
[2021-03-31] MEDS: naloxone 0.4 mg/ml SDV IVP (07:14)
[2021-03-31] MEDS: ondansetron 2 mg/ML SDV 2 mL 4 MG IVP (07:14)
[2021-03-31 07:20] LABS: ABG PCO2 40.2 mmHg (35-45); ABG PH Result 7.36 (7.35-7.45); Alveolar-Arterial Oxygen Gradi 20.1 mmHg (5-10); Base Excess ABG -2.9 mmol/L (-2.0-2.0); Blood Gas Allen Test Pos; Blood Gas Operator Identificat CAK; Blood Gas Sample Site Radial, left; Blood Gas Sample Type Arterial; Carboxyhemoglobin 0.9 %THgb (0.4-20.1); HCO3 ABG 22.4 mmol/L (22-26); HGB O2 Sat 90.1 % (95-100); Ionized Calcium Level - ABG 1.1 mmol/L (1.1-1.4); Methemoglobin 0.3 % (0.4-1.5); Oxygen Device NC; Oxygen Saturation ABG 91.2; PO2 ABG 55.6 mmHg (80.0-100.0); Potassium Level - ABG 4.4 mmol/L (3.5-5.0); Total Hemoglobin 13.7 g/dL (12-16)
[2021-03-31 07:22] LABS: Add Urine Microscopic? NO; Charge for UA Resulting for Rev
[2021-03-31 07:30] LABS: Bilirubin Urine 1+ (Negative); Blood Urine Neg (Negative); Glucose Urine UA Norm (Normal); Ketones Urine Negative (Negative); Leukocyte Esterase Urine Negative (Negative); Nitrate Urine Negative (Negative); Protein Urine Neg (Negative); Specific Gravity, Urine 1.015 (1.005-1.030); Urine Appearance Clear (CLEAR); Urine Color Yellow (Yellow); Urobilinogen Urine Norm (Negative); pH Urine 5 (5-7)
[2021-03-31 07:31] LABS: Lactic Sepsis W/Reflex 2.1 mmol/L (0.5-2.2)
[2021-03-31 07:32] LABS: Albumin Level 4.3 g/dL (3.5-5.2); Alcohol Level < 10 mg/dL (0-10); Alkaline Phosphatase 120 IU/L (35-105); Anion Gap 18.6 (5-19); Blood Urea Nitrogen 25 mg/dL (8-23); Calcium 8.4 mg/dL (8.5-10.5); Carbon Dioxide 27 mmol/L (22-29); Chloride 97 mmol/L (98-107); Creatine Phosphokinase 279 U/L (26-192); Globulin 2.9 g/dL (1.3-4.6); Glomerular Filtration Rate 22.2 mL/min (90-130); Glucose 72 mg/dL (65-115); Lipase 109 U/L (13-60); Osmolality Calculated 289 mOsm/kg (285-295); Potassium 4.6 mmol/L (3.5-5.1); Sodium 138 mmol/L (136-145); Total Bilirubin 0.3 mg/dL (0.15-1.2); Total Protein 7.2 g/dL (6.6-8.7)
[2021-03-31 07:33] LABS: Troponin(5th) Baseline 58 ng/L (0-10)
--- NOTE | 2021-03-31 07:33 | PC.NURSE ---
pt meds identified and labeled by pharmacy, controlled substances. meds stored in locked cabinet above medication prep area
[2021-03-31 07:34] LABS: Amphetamines Screen Urine Negative (Negative); Barbiturates Screen Urine Negative (Negative); Benzodiazepines Screen Urine Positive (Negative); Cocaine Screen Urine Negative (Negative); Opiate Screen Urine Positive (Negative); PCP Screen Urine Negative (Negative); THC Screen Urine Negative (Negative)
[2021-03-31 07:43] LABS: Alanine Aminotransferase 1119 U/L (0-33)
[2021-03-31 07:49] LABS: Aspartate Amino Transferase 1805 U/L (0-32)
[2021-03-31 08:23] LABS: Glucose Point of Care 159 mg/dL (70-110)
--- NOTE | 2021-03-31 08:36 | PC.NURSE ---
Pt now responding verbally to questions.
--- NOTE | 2021-03-31 08:42 | US_ITS ---
WS: [id number] ULTRASOUND ABDOMEN LIMITED CLINICAL INFORMATION: elevated LFTs COMPARISON: None. FINDINGS: Liver Size: Enlarged Craniocaudal length: 17.5 cm. Echogenicity: Normal. Surface nodularity: None. Mass (size and location): None. Bile ducts Intrahepatic ducts: Normal. Common bile duct diameter: 0.4 cm. Gallbladder Prior cholecystectomy Gallstones: None. Gallbladder sludge: None. Gallbladder wall thickening: None. Pericholecystic fluid: None. Sonographic Wesley sign: Absent. Pancreas Normal as visualized. Right kidney: Normal. Hydronephrosis: None. Size: 8.9 cm x 4.3 cm x 4.8 cm. Abdominal aorta and IVC Visualized portions are normal. Ascites: None. US/US abdomen limited [id number] IMPRESSION: 1. Hepatomegaly. No intrahepatic biliary ductal dilatation. 2. Prior cholecystectomy. Normal common bile duct. 3. No hydronephrosis in right kidney.
[2021-03-31 08:57] LABS: Reflex Lactate Order REFLEX LACTIC ORDERD
--- NOTE | 2021-03-31 09:06 | ECG_ITS ---
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 Measurements Intervals [place] Rate: 82 P: 53 [place]: 174 QRS: 26 QRSD: 90 T: -29 QT: 356 QTc: 417 Interpretive Statements SINUS RHYTHM NONSPECIFIC T-WAVE ABNORMALITY Compared to ECG 03/31/2021 07:06:21 T-wave abnormality now present Electronically Signed On 03-31-2021 17:14:55 CDT by Wojciech Garcia M.D. [id number]
[2021-03-31 09:42] LABS: Hepatitis A Antibody IgM Non-Reactive (Nonreactive); Hepatitis B Core IgM Non-Reactive (Nonreactive); Hepatitis B Surface Antigen Non-Reactive (Nonreactive); Hepatitis C Virus Antibody Non-Reactive (Nonreactive)
[2021-03-31 09:53] LABS: Troponin 5 2HR 49.73 ng/L (0-10)
[2021-03-31 10:04] LABS: Salicylate 0.9 mg/dL (3-10)
[2021-03-31 10:24] LABS: Acetaminophen < 5.0 ug/mL (10-30)
--- NOTE | 2021-03-31 10:37 | P.HP_ITS ---
Providers/Chief Complaint Primary Care Provider: Yesy Shetty MD Chief Complaint: OD History of Present Illness Ness Graham is a 70 year old female who was brought into the hospital with concerns of lethargy and unresponsiveness. Patient was awake when I visited her, and she reports she thinks that her medicine interacted overdosing her. She denies taking more medication than prescribed. She denies any suicidal or homicidal ideation. She states she has been at her baseline health lately without any fever or cough. She was exposed to Covid 1 week ago from her granddaughter. She reports she is vaccinated. No nausea, vomiting, recent dysuria, difficulty urinating. Emergency department record indicates friends found her, began CPR because she was unresponsive but she screamed out in pain when it was initiated. EMS found multiple bottles of her medication, 2 bottles with random pills some of which were broken in half not identifiable. These were sent to pharmacy for identification. Blood sugar per EMS was greater than 70. Review of Systems General: Reports: 10 or more systems reviewed and unremarkable except in HPI and below Const: Denies: fever(s) or chills Eyes: Denies: change in vision ENMT: Denies: throat pain Card: Denies: chest pain Resp: Denies: dyspnea, productive cough or non-productive cough GI: Denies: abdominal pain, nausea, vomiting, hematochezia or melena : Denies: flank pain Musc: Reports: back pain; Denies: neck pain Skin/Breast: Denies: rash Neuro: Denies: headache(s) Psych: Denies: anxiety Endo: Denies: polyuria Jaret/Lymph: Denies: easy bruising All/Imm: Denies: urticaria Medications/Allergies Home Medications Medication Instructions Recorded Confirmed Last Taken Type aspirin 81 mg tablet,delayed 81 mg PO DAILY@06 02/09/20 11/15/20 08/08/20 History release Dilaudid 2 mg PO Q4H PRN #0 tab 08/10/20 11/15/20 08/08/20 Rx alprazolam 0.25 mg PO BID PRN #0 tab 08/10/20 11/15/20 Unknown Rx methocarbamol 750 mg PO TID PRN #0 tab 08/10/20 11/15/20 Unknown Rx zolpidem 5 mg PO BEDTIME PRN #0 tab 08/10/20 11/15/20 Unknown Rx fluticasone fur. 100 mcg-umeclid 1 inh INHALATION Q24H 09/08/20 11/15/20 Unknown History 62.5 mcg-vilant 25 mcg inhalat.powder furosemide 40 mg tablet 40 mg PO QAM #90 tab 09/08/20 11/15/20 Unknown Rx potassium chloride 10 mEq 20 meq PO DAILY #90 tab 09/08/20 11/15/20 Unknown Rx tablet,extended release amlodipine 5 mg tablet 5 mg PO DAILY PRN tab 11/15/20 Unknown History carvedilol 25 mg tablet 12.5 mg PO BID tab 11/15/20 Unknown History pantoprazole 40 mg tablet,delayed 40 mg PO DAILY #90 tab 11/15/20 11/15/20 Unknown Rx release Allergies Allergy/AdvReac Type Severity Reaction Status Date / Time cephalexin Allergy Mild swelling/it Verified 11/15/20 15:14 bentley/redne ss bupropion [From Wellbutrin] AdvReac Mild unknown Verified 09/23/20 14:12 codeine AdvReac Mild unknown Verified 09/23/20 14:12 PFSH Acute PFSH: Medical History (Updated 03/31/21 @ 10:44 by Cyrus Gillis MD) Acute insomnia Anxiety Aortic regurgitation CHF (congestive heart failure), NYHA class II Chronic back pain COPD (chronic obstructive pulmonary disease) CVA (cerebral vascular accident) Elevated troponin Generalized weakness GERD (gastroesophageal reflux disease) History of lung cancer History of lung cancer in adulthood Hyperlipidemia Hypertension Mitral regurgitation Polypharmacy QT prolongation Surgical History H/O carpal tunnel repair H/O: hysterectomy History of appendectomy History of cholecystectomy History of lung surgery History of neck surgery History of tonsillectomy Family History Father , CABG CAD (coronary artery disease) Daughter CAD (coronary artery disease) Daughter CAD (coronary artery disease) Social History Smoking and tobacco status: former smoker Alcohol intake: never Lives independently: Yes Marital status: Vitals/I&O/Wt Last Vital Signs Temp 99.0 F 03/31/21 06:52 Pulse 83 11/04/21 09:48 Resp 16 03/31/21 09:48 BP 99/69 03/31/21 09:48 Pulse Ox 94 03/31/21 09:48 Weight last 48 hrs Weight 95.254 kg Physical Exam Narrative: EXAM NARRATIVE: General exam is an alert but sleepy appearing white female who is able to relate history HEENT: Pupils equally round. Oropharynx clear. Neck is supple no lymphadenopathy or thyromegaly Cardiovascular regular rate and rhythm, no murmur Lungs clear no wheezing or crackles Abdomen is soft, positive bowel sounds. No obvious organomegaly. exam is deferred, Sher noted Extremities no cyanosis clubbing or edema, cap refill brisk Skin no rash Neuro no focal deficits. Urinary Catheter Management^: Sher: Cath Placed During This Visit: yes Urinary Catheter Date of Insertion: 03/31/21 Urinary Catheter Time of Insertion: 07:20 Data : 03/31/21 07:02 03/31/21 07:02 Micro: Microbiology 03/31/21 08:03 Blood Culture - Preliminary Blood SPECIMEN COLLECTED 03/31/21 07:55 Blood Culture - Preliminary Blood SPECIMEN COLLECTED Other data: ABG demonstrates a pH of 7.36, PCO2 40, PO2 of 56. Lactic acid 2.1 Calcium 8.4 Total bilirubin normal Magnesium [place] [address], ALT 1119, alk phos 120, CK 279, troponin 58 with repeat 49 Urinalysis negative Urine drug screen positive for opiates and benzodiazepines Salicylate level 0.9, alcohol level less than 10, acetaminophen level less than 5. Hepatitis panel negative A&P Assessment and plan (1) Accidental overdose: Patient with multiple medications, many of which are sedating which could have caused the effect. She has received Narcan, and is now more awake. Continue hydration Hold sedative medication No evidence for suicide attempt currently. Status: Acute (2) Acute kidney injury: May be secondary to overdose. Potentially hypotension could have occurred as well secondary to elevation in creatinine as well as LFTs. Hydration CK has been checked and no evidence of rhabdomyolysis that is significant. Monitor urine output, considering renal ultrasound if renal function does not improve rapidly. Status: Acute (3) Transaminitis: Likely secondary to hypotension from overdose Avoid hepatic toxic medication Repeat LFTs tomorrow Abdominal ultrasound with fatty liver, absent gallbladder Status: Acute (4) Elevated troponin: Type II elevation. No evidence of acute MD EKG reviewed demonstrates some flipped T waves precordial leads, but no new changes from prior EKGs. Previous nuclear stress test in July 2020 demonstrated no reversible ischemia, and echo at that time demonstrated EF of 62% 1/4 diastolic dysfunction moderate mitral and aortic regurgitation. Status: Acute (5) Polypharmacy: Holding medications currently secondary to lethargy. When restarting some of her medications to reduce and/or stop some sedative medications Status: Acute Additional A&P Information Acute toxic encephalopathy, from unintentional overdose, likely from polyph armacy. Already improving. Head CT negative. Hypertension. Borderline hypotension currently. Hold antihypertensives History of COPD. DuoNeb as needed History of CHF History of prolonged QT syndrome on previous EKGs. No evidence of that currently. Magnesium level normal. Full code Heparin for DVT prophylaxis Attestations Medical Necessity Statement*: Will need less than 2 midnight stay for evalua tion and treatment of unintentional overdose. Time Spent in Patient Care: Greater than 35 minutes Coding Level of Care Code Acute Bail Bonding Agent for g Fwd Diagnoses Accidental overdose T50.901A Acute kidney injury N17.9 Transaminitis R74.01 Elevated troponin R77.8 Polypharmacy Z79.899
[2021-03-31 11:06] LABS: Lactic Acid level (Lactate) 1.4 mmol/L (0.5-2.2)
[2021-03-31 12:10] LABS: Thyroid Stimulating Hormone 1.08 uIU/mL (0.27-4.20)
[2021-03-31 12:26] LABS: SARS Covid-2 Antigen Negative (Negative)
[2021-03-31] MEDS: heparin 5,000 unit/mL INJ 1 mL 5000 UNIT SUBCUT ×2 (12:34→23:40)
[2021-03-31] MEDS: sodium chloride 0.9% 1,000 ML 100 ML IV ×2 (12:35→22:39)
--- NOTE | 2021-03-31 13:06 | ECG_ITS ---
[facility] Test Date: 2021-03-31 Pat Name: Ness Graham Department: Room: [facility] Gender: Female Paradi Operator: : 1950 Requested By: Chad Barksdale Order Number: [id number] Tonya MD: Wojciech Garcia M.D. Measurements Intervals [place] Rate: 78 P: 37 FL: 148 QRS: 29 QRSD: 83 T: 0 QT: 390 QTc: 445 Interpretive Statements SINUS RHYTHM NONSPECIFIC T-WAVE ABNORMALITY Compared to ECG 03/31/2021 10:00:39 No significant changes Electronically Signed On 03-31-2021 17:13:27 CDT by Wojciech Garcia M.D. [id number]
[2021-03-31 14:35] LABS: Troponin 5 6HR 38.49 ng/L (0-10)
--- NOTE | 2021-03-31 15:05 | PC.NURSE ---
1138 Pt arrived via stretcher from ER with ER nurse at side. Transferred to ICU bed per staff. Connected to ICU monitor. VSS. Pt AAOX4, able to make all needs known. PIV to RAC, flushes freely. Sher cath in place draining clear destiny urine to BSD. Dressing in place to L tibia from IO. Small BM noted, cleaned and pericare completed. Pt on isolation until covid ruled out. Denies any needs. Will monitor.
--- NOTE | 2021-03-31 15:35 | PC.NURSE ---
1230 Pt medications counted and stored in pyxis. Pt aware.
--- NOTE | 2021-03-31 18:10 | PC.NURSE ---
Shift Note Frequent safety and comfort rounds continue. Orders and/or nursing care completed as indicated. Patient monitored for response to intervention and treatment(s). Education provided includes treatment plan and medications. Pt AAOX4, no issues noted. VSS. Able to make all needs known. Sher cath draining freely to BSD. Will continue to monitor.
[2021-04-01] VITALS (53 sets, daily range): BP systolic 110–215; BP diastolic 56–125; PULSE 72–98; RESP 4–29; TEMP 37.1–37.2; O2SAT 85–99
[2021-04-01 04:59] LABS: Basophils % 0.3 %; Eosinophils % 0.4 %; Hematocrit 34.1 % (37.0-47.0); Lymphocytes # 1.1 10^3/uL (0.8-4.8); Lymphocytes % 16.7 %; Mean Corpuscular HGB Conc 32.3 g/dL (30.0-36.0); Mean Corpuscular Hemoglobin 31.7 pg (28.0-34.0); Mean Corpuscular Volume 98.3 fl (81-99); Mean Platelet Volume 12.8 fL (7.4-10.4); Monocytes # 0.3 10^3/uL (0.2-0.9); Monocytes % 4.9 %; Neutrophils # 5.24 10^3/uL (1.8-7.7); Neutrophils % 77.4 %; Nucleated Red Blood Cells % 0 %; Platelet Count 101 10^3/cmm (130-400); Red Blood Count 3.47 10^6/uL (4.1-5.3); Red Cell Distribution Width 12.6 % (12.1-15.1); White Blood Count 6.8 10^3/uL (4.0-10.0)
[2021-04-01 05:22] LABS: Albumin Level 3.2 g/dL (3.5-5.2); Alkaline Phosphatase 82 IU/L (35-105); Blood Urea Nitrogen 35 mg/dL (8-23); Calcium 7.6 mg/dL (8.5-10.5); Carbon Dioxide 24 mmol/L (22-29); Chloride 104 mmol/L (98-107); Globulin 2.7 g/dL (1.3-4.6); Glomerular Filtration Rate 37.4 mL/min (90-130); Glucose 86 mg/dL (65-115); Osmolality Calculated 295 mOsm/kg (285-295); Sodium 139 mmol/L (136-145); Total Bilirubin 0.3 mg/dL (0.15-1.2); Total Protein 5.9 g/dL (6.6-8.7)
[2021-04-01] MEDS: aspirin 81 mg EC Tablet PO (05:32)
[2021-04-01 05:49] LABS: Alanine Aminotransferase 1128 U/L (0-33)
[2021-04-01 05:53] LABS: Anion Gap 15.4 (5-19); Aspartate Amino Transferase 1738 U/L (0-32); Potassium 4.4 mmol/L (3.5-5.1)
--- NOTE | 2021-04-01 06:01 | PC.NURSE ---
Frequent safety and comfort rounds continue. Orders and/or nursing care completed as indicated. Patient monitored for response to intervention and treatment(s). Will continue to monitor. All vs and assessments as charted.
[2021-04-01] MEDS: pantoprazole DR 40 mg Tablet PO (08:13)
[2021-04-01] MEDS: sodium chloride 0.9% 1,000 ML 100 ML IV (08:13)
--- NOTE | 2021-04-01 08:41 | PC.NURSE ---
0700 Report received. Assessment completed. AAOx4, VSS. Makes all needs known. c/o gas pain, episode of diarrhea this AM. Pericare and cath care completed. NS infusing per orders to R AC PIV. SCD's in place. Sher cath in place draining freely to BSD. O2 at 4LNC. Will monitor.
--- NOTE | 2021-04-01 08:44 | PC.NURSE ---
0845 O2 decreased to 2LNC.
--- NOTE | 2021-04-01 08:59 | USCV_ITS ---
[place], [place] Age: 70 Gender: F : 1950 Exam Date: 04/01/2021 10:02 Ordering Phys: Cyrus Gillis MD Technologist: Shayy Palencia Exam Location: [facility] Indication: elevated troponin BP: 158 / 88 HR: 75 Rhythm: Sinus Technical Quality: Adequate MEASUREMENTS (Male / Female) Normal Values 2D ECHO LV Diastolic Diameter PLAX 4.2 cm 4.2 - 5.9 / 3.9 - 5.3 cm LV Systolic Diameter PLAX 2.7 cm IVS Diastolic Thickness 1.2 cm 0.6 - 1.0 / 0.6 - 0.9 cm IVS Systolic Thickness 1.7 cm LVPW Diastolic Thickness 1.0 cm 0.6 - 1.0 / 0.6 - 0.9 cm LVPW Systolic Thickness 1.9 cm LVOT Diameter 2.2 cm LV Ejection Fraction 2D Teich 65.6 % LV Ejection Fraction MOD 2C 67.4 % LV Ejection Fraction 2C AL 64.1 % LA Diameter 3.0 cm LA Width 3.4 cm LA Height 4.7 cm RA Width 4.2 cm RA Height 4.7 cm Aorta at Sinotubular Diameter 3.0 cm DOPPLER AV Peak Velocity 158.0 cm/s LVOT Peak Velocity 131.0 cm/s AV Area Cont Eq vti 3.3 cm squared AV Area Cont Eq pk 3.0 cm squared MV Peak Velocity 122.0 cm/s MV Area PHT 3.7 cm squared Mitral E to A Ratio 1.1 MV E' Velocity 57.5 cm/s Mitral E to MV E' Ratio 10.9 Mitral E to LV E' Lateral Ratio 11.1 Mitral E to LV E' Septal Ratio 10.8 TR Peak Velocity 243.5 cm/s TR Peak Gradient 23.7 mmHg Right Atrial Pressure 3.0 mmHg Pulmonary Artery Systolic Pressu 26.7 mmHg PV Peak Velocity 77.0 cm/s RV Acceleration Time 0.1 s RV Ejection Time 0.3 s RV AcT/ET 0.3 FINDINGS Left Ventricle Normal left ventricular size. LV systolic function is normal with EF of 55-60%. No regional wall motion abnormalities. Normal diastolic filling pattern. Right Ventricle The right ventricle is normal in size and function. Right Atrium The right atrium is normal in size. Left Atrium The left atrium is normal in size. Mitral Valve Thickened mitral valve without significant stenosis or prolapse. There is mild to moderate mitral regurgitation. Aortic Valve Aotic valve calcification is noted. No significant stenosis. There is mild to moderate aortic regurgitation. Tricuspid Valve Structurally normal tricuspid valve without significant stenosis. Mild tricuspid regurgitation. Insufficient TR jet to calculate RVSP Pulmonic Valve Structurally normal pulmonic valve without significant stenosis. There is mild pulmonic regurgitation. Pericardium Normal pericardium without effusion. Aorta Normal ascending aorta dimension. CONCLUSIONS Technically limited quality echocardiogram because of poor ultrasonic windows. LV systolic function is normal with EF of 55-60% Normal diastolic function Mild to moderate mitral regurgitation Mild to moderate aortic regurgitation Mild tricuspid regurgitation. Mild pulmonic regurgitation Compared to prior echocardiogram from 03/31/2021, no significant changes are seen Wojciech Garcia MD (Electronically Signed) Final Date: 02 April 2021 19:18 S
[2021-04-01] MEDS: pregabalin 50 mg Capsule PO ×2 (09:22→17:31)
[2021-04-01] MEDS: methocarbamol 500 mg Tablet 250 MG PO ×3 (09:23→20:54)
--- NOTE | 2021-04-01 10:03 | PC.CHAP ---
Pastoral Care Encounter/Spiritual Assessment Type of Contact [] Declined oil distributor visit [] Patient/Family/Request visit [] Outpatient visit [] Follow-up visit [] Physician referral [] Code/Alert [x] Routine visit [] Staff referral [] Actively dying [] Patient sleeping [] Family support [] [] Out of room [] Palliative care [] [x] Receiving care in room [] Pre-surgical visit [] Trauma [] Long length of stay [x] ICU visit [] Other: Relational/Emotional Strength [] Patient feels connected with others/family/visitors/staff [] Distress [] Loneliness/isolation [] Abandonment Spirituality of Patient [] Person of Kelle [] Attends [employer] of their Kelle [] Believes in Prayer [] Reads Bible or Pentecostal materials [] There are Spiritual issues to be addressed Tar Boiler Interventions [x] Prayer [] Active listening [] Non-anxious presence [] Spiritual/emotional support [] Crisis/trauma care [] Spiritual counseling [] Bereavement support [] Provided bereavement packet [] Provided Bible/devotional materials [] Provided toy/stuffed animal, coloring book to patient or family member [] Provided Communion [] Anointing/[place] [] Salvation [x] Completed spiritual assessment [] Other: Impact on Illness or Injury [] Angry [] Fearful [] Anxious [] Often cries [] Exhaustion [] Unable to work [] Unable to attend mormon [] Unable to walk/stand [] Unable to read [] Unable to drive [] Unable to eat/drink [] Unable to sleep [] Unable to be with family [] Patient intubated [] Other: Summary Time spent with patient
--- NOTE | 2021-04-01 10:41 | P.PN_ITS ---
Subjective Subjective: Interval history: Ness reports she is feeling better. Wonders why this happened again. She had a recent ER visit for decreased responsiveness at [facility]. She denies any chest pain, shortness of breath. Medications: Reviewed: Yes Vitals/I&O/Wt Last Vital Signs Temp 99.0 F 04/01/21 07:30 Pulse 79 04/01/21 07:30 Resp 15 04/01/21 07:30 BP 121/63 04/01/21 07:30 Pulse Ox 98 04/01/21 07:30 03/31/21 04/01/21 04/01/21 22:59 06:59 14:59 Intake Total 1240 / 1240 1196.667 / 1196.667 Output Total 400 / 400 700 / 1100 Balance 840 / 840 -700 / 140 1196.667 / 1196.667 Weight last 48 hrs Weight 99.422 kg Weight 95.254 kg Weight 95.254 kg Physical Exam Narrative: EXAM NARRATIVE: General exam is an awake alert female in no distress. Telemetry normal sinus rhythm Neck is supple no lymphadenopathy or thyromegaly Cardiovascular regular rate and rhythm, no murmur Lungs clear no wheezing or crackles Abdomen is soft, positive bowel sounds. No obvious organomegaly. Extremities no cyanosis clubbing or edema, cap refill brisk Urinary Catheter Management^: Sher: Cath Placed During This Visit: yes Reason for Continuing Indwelling Catheter: Accurate Measurement of Urinary Output in Critically Ill Patients Urinary Catheter Date of Insertion: 03/31/21 Urinary Catheter Time of Insertion: 07:20 Data : 04/01/21 04:40 04/01/21 04:40 Micro: Microbiology 03/31/21 08:03 Blood Culture - Preliminary Blood NEGATIVE TO DATE 03/31/21 07:55 Blood Culture - Preliminary Blood NEGATIVE TO DATE A&P Assessment and plan (1) Accidental overdose: Patient with multiple medications, many of which are sedating which could have caused the effect. She received Narcan, in the emergency department which improved responsiveness. She now appears recovered from polypharmacy. To prevent withdrawal medication will be restarted, lower doses No evidence for suicide attempt currently. Status: Acute (2) Acute kidney injury: May be secondary to overdose. Potentially hypotension could have occurred as well secondary to elevation in creatinine as well as LFTs. CK has been checked and no evidence of rhabdomyolysis that is significant. Renal function has improved greatly. Discontinue Sher. Recheck creatinine tomorrow. Status: Acute (3) Transaminitis: Likely secondary to hypotension from overdose Avoid hepatic toxic medication LFTs not greatly improved Abdominal ultrasound with fatty liver, absent gallbladder Repeat LFTs tomorrow along with INR. Status: Acute (4) Elevated troponin: Type II elevation. No evidence of acute MS EKG reviewed demonstrates some flipped T waves precordial leads, but no new changes from prior EKGs. Previous nuclear stress test in July 2020 demonstrated no reversible ischemia, and echo at that time demonstrated EF of 62% 1/4 diastolic dysfunction moderate mitral and aortic regurgitation. Recheck echo secondary to episode of unresponsiveness, associated with brief hypotension line noted in the ICU. I expect she had hypotension, or perhaps even hypoxia prior to her being discovered unresponsive at home. Status: Acute (5) Polypharmacy: Restart some of her medications, lower dose. Status: Acute Additional A&P Information Acute toxic encephalopathy, from unintentional overdose, likely from polypharmacy. Now resolved. Head CT negative. Hypertension. Borderline hypotension on admission. Now improved. Restart carvedilol lower dose History of COPD. DuoNeb as needed History of CHF History of prolonged QT syndrome on previous EKGs. No evidence of that currently. Magnesium level normal. Full code Heparin for DVT prophylaxis Covid PCR pending Attestations Medical Necessity Statement*: Needs continued hospitalization, for close f ollow-up of abnormal LFTs, as well as reinitiation of chronic medicines at lower doses. Coding Level of Care Code Acute Senior Php Software Developer for Chg Fwd Diagnoses Accidental overdose T50.901A Acute kidney injury N17.9 Transaminitis R74.01 Elevated troponin R77.8 Polypharmacy Z79.899
[2021-04-01] MEDS: heparin 5,000 unit/mL INJ 1 mL 5000 UNIT SUBCUT (11:34)
[2021-04-01 14:41] LABS: Coronavirus Test Green County Not Detected
[2021-04-01] MEDS: carvedilol 6.25 mg Tablet PO (17:31)
--- NOTE | 2021-04-01 18:30 | PC.NURSE ---
Shift Note Frequent safety and comfort rounds continue. Orders and/or nursing care completed as indicated. Patient monitored for response to intervention and treatment(s). Education provided includes treatment plan, medications. Pt and verbalize understanding. No issues noted. Pt uses BSC without much issue. Will continue to monitor.
--- NOTE | 2021-04-01 20:06 | PC.NURSE ---
BEGINNING OF SHIFT PT RESTING IN BED WITH TELEVISION ON. AAOX4 AND ABLE TO VERBALIZE NEEDS. NO S/S OF ACUTE DISTRESS. VITAL SIGNS STABLE.
--- NOTE | 2021-04-01 20:45 | PC.NURSE ---
Vomiting pt vomited appx 300 mL
[2021-04-01] MEDS: hyDRALAzine 20 mg/mL INJ 1 mL 10 MG IVP (21:23)
[2021-04-01] MEDS: ondansetron 2 mg/ML SDV 2 mL 4 MG IVP (21:23)
--- NOTE | 2021-04-01 21:45 | PC.NURSE ---
Avi JOSHUA. Notified Dr. Fulton of pt HTN and attempted to notify of pt overall discomfort, headache and nausea. Order for PRN hydralazine given with preference to have attending address any other medications.
--- NOTE | 2021-04-01 21:53 | PC.NURSE ---
Addendum entered by Munira Clark RN 04/02/21 19:48: Vomiting pt vomited for second time-- appx 200 mL Original Note: Vomiting Pt vomited for second time-- appx 2-- mL
--- NOTE | 2021-04-01 22:36 | PC.NURSE ---
NOTIFIED MD DR. WHALEY NOTIFIED OF PT CONTINUED HTN, NAUSEA, VOMITING, ABD PAIN, LOOSE STOOLS, FEVER/CHILLS SENSATION, HEADACHE AND GENERAL DISCOMFOR-- HX OF PRESENT ILLNESS AND VITAL SIGNS DISCUSSED, ED ADMIT NOTE REVIEWED ORDERS FOR XANAX AND NS INFUSION GIVEN.
[2021-04-01] MEDS: sodium chloride 0.9% 1,000 ML 75 ML IV (22:54)
[2021-04-01] MEDS: ALPRAZolam 0.5 mg Tablet 0.25 MG PO (22:54)
--- NOTE | 2021-04-01 23:01 | PC.NURSE ---
REASSESSMENT Temp 98.9, HR 98, R 20, O2 sat 95% 2 L/min via NC, BP 167/94.
[2021-04-02] VITALS (50 sets, daily range): BP systolic 127–188; BP diastolic 69–127; PULSE 67–93; RESP 12–31; TEMP 36.6–37; O2SAT 88–98
[2021-04-02] MEDS: heparin 5,000 unit/mL INJ 1 mL 5000 UNIT SUBCUT ×2 (00:23→11:15)
--- NOTE | 2021-04-02 00:40 | PC.NURSE ---
REASSESSMENT Xanax given as ordered. Pt now states that she feels a little better than before-- her headache has lightened and her fever/chills sensation has eased up. Vomiting has stopped-- pt states she feels queasy but not the gut wrenching nausea like before Pt does continue to have loose stools. IVF infusing as ordered.
[2021-04-02] MEDS: hyDRALAzine 20 mg/mL INJ 1 mL 10 MG IVP ×3 (02:25→13:52)
[2021-04-02] MEDS: ondansetron 2 mg/ML SDV 2 mL 4 MG IVP (02:25)
[2021-04-02] MEDS: ALPRAZolam 0.5 mg Tablet 0.25 MG PO ×2 (05:18→13:53)
[2021-04-02] MEDS: aspirin 81 mg EC Tablet PO (05:19)
[2021-04-02 05:28] LABS: Basophils # 0.1 10^3/uL (0.0-0.1); Basophils % 0.6 %; Eosinophils # 0.1 10^3/uL (0.0-0.8); Hematocrit 39.1 % (37.0-47.0); Hemoglobin 12.6 g/dL (11.5-15.3); Lymphocytes # 1.5 10^3/uL (0.8-4.8); Lymphocytes % 19.2 %; Mean Corpuscular HGB Conc 32.2 g/dL (30.0-36.0); Mean Corpuscular Hemoglobin 31.5 pg (28.0-34.0); Mean Corpuscular Volume 97.8 fl (81-99); Mean Platelet Volume 13.3 fL (7.4-10.4); Monocytes # 0.5 10^3/uL (0.2-0.9); Monocytes % 6.7 %; Neutrophils # 5.58 10^3/uL (1.8-7.7); Nucleated Red Blood Cells % 0 %; Platelet Count 115 10^3/cmm (130-400); Red Cell Distribution Width 12.7 % (12.1-15.1); White Blood Count 7.8 10^3/uL (4.0-10.0)
[2021-04-02 07:09] LABS: Albumin Level 3.3 g/dL (3.5-5.2); Alkaline Phosphatase 87 IU/L (35-105); Blood Urea Nitrogen 21 mg/dL (8-23); Calcium 8.3 mg/dL (8.5-10.5); Carbon Dioxide 24 mmol/L (22-29); Chloride 107 mmol/L (98-107); Globulin 2.8 g/dL (1.3-4.6); Glomerular Filtration Rate 71.3 mL/min (90-130); Glucose 92 mg/dL (65-115); Osmolality Calculated 297 mOsm/kg (285-295); Sodium 142 mmol/L (136-145); Total Bilirubin 0.3 mg/dL (0.15-1.2); Total Protein 6.1 g/dL (6.6-8.7)
[2021-04-02 07:10] LABS: Anion Gap 14.7 (5-19); Potassium 3.7 mmol/L (3.5-5.1)
[2021-04-02 07:21] LABS: Alanine Aminotransferase 1255 U/L (0-33)
[2021-04-02 07:23] LABS: Aspartate Amino Transferase 1393 U/L (0-32)
[2021-04-02] MEDS: methocarbamol 500 mg Tablet 250 MG PO ×3 (08:06→20:00)
[2021-04-02] MEDS: pantoprazole DR 40 mg Tablet PO (08:07)
[2021-04-02] MEDS: FUROsemide 40 mg Tablet PO (08:07)
[2021-04-02] MEDS: carvedilol 25 mg Tablet 12.5 MG PO ×2 (08:07→16:43)
[2021-04-02] MEDS: amlodipine 5 mg Tablet PO (12:07)
--- NOTE | 2021-04-02 15:10 | PM.PN ---
Subjective Subjective: Interval history: Overnight patient was diaphoretic, nurses noted anxiety, excessive yawning irritability hypertension This most likely is related to opiate withdrawal This morning patient was experiencing audible wheezing however on lung auscultation no wheezing noted at the bedside She was running frequently during my evaluation Pupils are normal equal and reactive to light No active tremors Adequate urine output 4 L output with -2 L balance She does carry history of COPD currently requiring 2 L nasal cannula Liver enzymes still high Vitals/I&O/Wt Last Vital Signs Temp 98 F 04/02/21 06:23 Pulse 85 04/02/21 14:00 Resp 16 04/02/21 07:36 BP 156/103 04/02/21 14:00 Pulse Ox 95 04/02/21 14:00 04/02/21 04/02/21 04/02/21 06:59 14:59 22:59 Intake Total 300 / 2395.000 836.25 / 836.25 Output Total 2200 / 2200 Balance 300 / -605.000 -1363.75 / -1363.75 Weight last 48 hrs Weight 98.611 kg Weight 99.422 kg Physical Exam Narrative: EXAM NARRATIVE: Patient was sitting in her bed Saturating well on 2 L nasal cannula however noticed audible wheezing On lung auscultation no expiratory wheezing noted Skin rash mild hyperemia noted around her eyes Dry mucous membranes Abdomen soft S1, S2 No focal neuro deficit She is excessively yawning No active tremors Lower extremity no edema No asterixis Urinary Catheter Management^: Sher: Cath Placed During This Visit: yes, but has since been removed by the nurse Reason for Continuing Indwelling Catheter: Decision to DC Catheter Urinary Catheter Date of Insertion: 03/31/21 Urinary Catheter Time of Insertion: 07:20 Date Urinary Catheter Removed: 04/01/21 Time Urinary Catheter Discontinued: 12:30 Data : 04/02/21 04:34 04/02/21 06:14 A&P Assessment and plan (1) Abnormal liver function: Status: Acute (2) Acute kidney injury: Status: Acute (3) Accidental overdose: Status: Acute (4) GERD (gastroesophageal reflux disease): Status: Acute (5) CHF (congestive heart failure), NYHA class II: Status: Acute Qualifiers: Congestive heart failure type: diastolic Congestive heart failure chronicity: chronic Qualified Code(s): I50.32 - Chronic diastolic (congestive) heart failure (6) Aortic regurgitation: Status: Acute Qualifiers: Cardiac valve disease etiology: nonrheumatic Qualified Code(s): I35.1 - Nonrheumatic aortic (valve) insufficiency (7) Mitral regurgitation: Status: Acute Qualifiers: Cardiac valve disease etiology: nonrheumatic Qualified Code(s): I34.0 - Nonrheumatic mitral (valve) insufficiency (8) Polypharmacy: Status: Acute (9) COPD (chronic obstructive pulmonary disease): Status: Acute (10) Thrombocytopenia: Status: Acute (11) Uncontrolled hypertension: Status: Acute Additional A&P Information Metabolic/toxic encephalopathy As per review of my chart there is accidental overdose of medications at the bedside when I evaluated the patient today Patient mentation has improved Excessive yawning Most likely related to opiate withdrawal, polypharmacy No active strokelike symptoms No active seizures U tox negative Positive for opiates and benzodiazepines No anion gap she is not acidotic Hypertensive with excessive yawning most likely opiate withdrawal We will start lower dose of opioids recommended outpatient pain management clinic Patient is taking opioids for her pain around left breast secondary to breast cancer s/p surgery Hypertensive urgency: We will give her clonidine for opiate withdrawal and hypertension Acute hepatic failure: High AST and ALT with increased PT INR is normal Albumin 3.3 Hepatitis panel negative Drug tox screen level negative No acidosis or anion gap Most likely related to the hypertension at the time of admission, hepatomegaly, check ammonia level ONEIL secondary to dehydration, improved History of prolonged QT current QTc interval is normal COPD exacerbation currently patient is experiencing wheezing started IV steroids currently doing well on 2 L nasal cannula Type II GA EF 62% diastolic dysfunction Full code Cardiac diet DVT prophylaxis Heparin Attestations Medical Necessity Statement*: Monitor 1 more day liver function is still high transfer out of ICU once blood pressure is better Time Spent in Patient Care: 16 - 35 minutes Coding Level of Care Code Acute Application Development Project Manager for g Fwd Diagnoses Abnormal liver function R94.5 Acute kidney injury N17.9 Accidental overdose T50.901A GERD (gastroesophageal reflux disease) K21.9 CHF (congestive heart failure), NYHA class II I50.32 Congestive heart failure type: diastolic Congestive heart failure chronicity: chronic Aortic regurgitation I35.1 Cardiac valve disease etiology: nonrheumatic Mitral regurgitation I34.0 Cardiac valve disease etiology: nonrheumatic Polypharmacy Z79.899 COPD (chronic obstructive pulmonary disease) J44.9 Thrombocytopenia D69.6 Uncontrolled hypertension I10
[2021-04-02] MEDS: cloNIDine 0.1 mg Tablet PO (16:43)
--- NOTE | 2021-04-02 16:45 | PC.NURSE ---
Patient report called to Idania MANRIQUE. Patients home meds sent home with , home medication list signed by .
[2021-04-02 16:58] LABS: Ammonia 42 umol/L (11-51)
--- NOTE | 2021-04-02 17:14 | PC.NURSE ---
PT SAFELY TRANSFERRED UP TO MED SURG. SHE IS CURRENTLY RESTING IN BED. PT IS ALERT AND ORIENTATED. SHE DOES HAVE SOME COMPLAINTS OF A HEADACHE. THIS NURSE WILL CHECK HER MAR AND SEE IF SHE CAN HAVE SOME TYLENOL. ASSESSMENT COMPLETED BY THIS NURSE. NO SKIN ISSUES. OTHER THEN THE HEADACHE NO COMPLAINTS OF PAIN. HEART SOUNDS LIKE IT IS IN A REGULAR SINUS RHYTHM. LUNGS DO SOUND A BIT COARSE. PT IS ON 2L NC. SHE NORMALLY DOES NOT WEAR ANY OXYGEN. WILL CONTINUE TO MONITOR PT.
--- NOTE | 2021-04-02 17:17 | PC.NURSE ---
Patient transferred to room 256-2 via wheelchair, clothes cell phone, and glasses with patient.
[2021-04-02] MEDS: SUMAtriptan 25 mg Tablet PO (18:44)
[2021-04-03] VITALS: BP 168/82; PULSE 73; RESP 16; TEMP 37
[2021-04-03] MEDS: heparin 5,000 unit/mL INJ 1 mL 5000 UNIT SUBCUT (00:05)
[2021-04-03 04:00] VITALS: BP 159/83; PULSE 73; RESP 17; TEMP 37.2; O2SAT 91
--- NOTE | 2021-04-03 05:18 | PC.NURSE ---
pt spouse called at this time for an update, stating he will be here for visitation today. Visitation hours/policy explained to spouse, who verbalized understanding.
[2021-04-03 05:27] LABS: Basophils % 0.1 %; Hematocrit 36.8 % (37.0-47.0); Lymphocytes # 1.4 10^3/uL (0.8-4.8); Lymphocytes % 17.6 %; Mean Corpuscular HGB Conc 32.6 g/dL (30.0-36.0); Mean Corpuscular Hemoglobin 31.6 pg (28.0-34.0); Mean Corpuscular Volume 96.8 fl (81-99); Mean Platelet Volume 12.5 fL (7.4-10.4); Monocytes # 0.4 10^3/uL (0.2-0.9); Monocytes % 4.8 %; Neutrophils % 76.2 %; Nucleated Red Blood Cells % 0 %; Platelet Count 139 10^3/cmm (130-400); Red Cell Distribution Width 12.3 % (12.1-15.1)
[2021-04-03 05:53] LABS: Albumin Level 3.5 g/dL (3.5-5.2); Alkaline Phosphatase 87 IU/L (35-105); Anion Gap 15.6 (5-19); Aspartate Amino Transferase 549 U/L (0-32); Blood Urea Nitrogen 16 mg/dL (8-23); Calcium 8.9 mg/dL (8.5-10.5); Carbon Dioxide 24 mmol/L (22-29); Chloride 105 mmol/L (98-107); Globulin 3.4 g/dL (1.3-4.6); Glomerular Filtration Rate 71.3 mL/min (90-130); Glucose 122 mg/dL (65-115); Osmolality Calculated 294 mOsm/kg (285-295); Potassium 3.6 mmol/L (3.5-5.1); Sodium 141 mmol/L (136-145); Total Bilirubin 0.4 mg/dL (0.15-1.2); Total Protein 6.9 g/dL (6.6-8.7)
[2021-04-03] MEDS: FUROsemide 40 mg Tablet PO (06:01)
[2021-04-03] MEDS: aspirin 81 mg EC Tablet PO (06:01)
[2021-04-03 06:19] LABS: Alanine Aminotransferase 976 U/L (0-33)
[2021-04-03 07:39] VITALS: BP 160/84; PULSE 71; RESP 18; TEMP 36.7; O2SAT 94
[2021-04-03 07:55] VITALS: PULSE 70; RESP 16; O2SAT 91
--- NOTE | 2021-04-03 09:18 | P.DS_ITS ---
Discharge Providers Date of Admission: 03/31/21 11:53 Date of Discharge: April 03, 2021 Attending Provider at Admission: Cyrus Gillis MD Attending Provider at Discharge: Poonam John MD Primary Care Provider: Yesy Shetty MD Diagnoses at Discharge Discharge Diagnosis (1) Abnormal liver function: Status: Acute (2) Acute kidney injury: Status: Acute (3) Accidental overdose: Status: Acute (4) GERD (gastroesophageal reflux disease): Status: Acute (5) CHF (congestive heart failure), NYHA class II: Status: Acute Qualifiers: Congestive heart failure chronicity: chronic Congestive heart failure type: diastolic Qualified Code(s): I50.32 - Chronic diastolic (congestive) heart failure (6) Aortic regurgitation: Status: Acute Qualifiers: Cardiac valve disease etiology: nonrheumatic Qualified Code(s): I35.1 - Nonrheumatic aortic (valve) insufficiency (7) Mitral regurgitation: Status: Acute Qualifiers: Cardiac valve disease etiology: nonrheumatic Qualified Code(s): I34.0 - Nonrheumatic mitral (valve) insufficiency (8) Polypharmacy: Status: Acute (9) COPD (chronic obstructive pulmonary disease): Status: Acute (10) Thrombocytopenia: Status: Acute (11) Uncontrolled hypertension: Status: Acute Reason for Visit Reason for Visit: OD Hospital Course Hospital Course History of Present Illness by Dr. Bernal Ness Graham is a 70 year old female who was brought into the hospital with concerns of lethargy and unresponsiveness. Patient was awake when I visited her, and she reports she thinks that her medicine interacted overdosing her. She denies taking more medication than prescribed. She denies any suicidal or homicidal ideation. She states she has been at her baseline health lately without any fever or cough. She was exposed to Covid 1 week ago from her granddaughter. She reports she is vaccinated. No nausea, vomiting, recent dy suria, difficulty urinating. Emergency department record indicates friends found her, began CPR because she was unresponsive but she screamed out in pain when it was initiated. EMS found multiple bottles of her medication, 2 bottles with random pills some of which were broken in half not identifiable. These were sent to pharmacy for identification. Blood sugar per EMS was greater than 70. Hospital course Patient was admitted for management evaluation of hepatic failure & accidental drug overdose, she does take Dilaudid p.o. tablets at home for her left breast pain which is secondary to her previous history of cancer. Patient is denying suicidal ideation at the time of my evaluation, her liver enzymes trended down significantly, I gave her clonidine for opiate withdrawal symptoms she became tachycardic tachypneic hypertensive and was excessively yawning. Clonidine did help her to a great extent. She only required 1 dose of clonidine. At the time of discharge Dilaudid was discontinued along other muscle relaxants. I will only give her oxycodone for as needed use to avoid opiate withdrawal. I asked patient to follow-up with pain management clinic to get optimal analgesic/opi oids regimen. Drug screen negative, U tox positive for opioids and benzodiazepines. Her presentation was not consistent with Tylenol toxicity and N acetylcysteine was not used at the time of admission. She was diagnosed with acute hepatic failure secondary to polypharmacy drug overdose. Her liver enzymes are trending down she does not have any signs or symptoms of jaundice, abdominal imaging is unremarkable. On 04/03 patient is eager to return home, she is not experiencing any withdrawal symptoms anymore, her mentation has improved she is normal hemodynamically. Physical Exam Narrative: EXAM NARRATIVE: Patient was sitting in her chair Saturating well room air, wheezing has improved On lung auscultation no expiratory wheezing noted Skin rash improved Dry mucous membranes Abdomen soft S1, S2 No focal neuro deficit No opioid withdrawal symptoms No active tremors Lower extremity no edema No asterixis Urinary Catheter Management^: Sher: Cath Placed During This Visit: yes, but has since been removed by the nurse Reason for Continuing Indwelling Catheter: Decision to DC Catheter Urinary Catheter Date of Insertion: 03/31/21 Urinary Catheter Time of Insertion: 07:20 Date Urinary Catheter Removed: 04/01/21 Time Urinary Catheter Discontinued: 12:30 Discharge Data Data Completed and Pending: Completed Studies During Hospitalization Category Date Time Status CT head wo con* 7 0450 Stat Cat Scan 03/31/21 07:06 Completed XR chest 1V luis a ble [id number] Stat Exams 03/31/21 07:06 Completed CV. echo complete * [id number] Routine Ultrasound 04/01/21 08:59 Completed US abdomen limite d [id number] Stat Ultrasound 03/31/21 08:42 Completed Pending at discharge Category Date Time Status Blood Culture Sta t Lab 03/31/21 08:03 Results Labs from last 24 hours 04/03/21 04/03/21 04/02/21 04:54 04:54 16:29 WBC 8.0 RBC 3.80 L Hgb 12.0 Hct 36.8 L MCV 96.8 MCH 31.6 MCHC 32.6 RDW 12.3 Plt Count 139 MPV 12.5 H Neut % (Auto) 76.2 Lymph % (Auto) 17.6 Childress % (Auto) 4.8 Eos % (Auto) 0.0 Baso % (Auto) 0.1 Neut # (Auto) 6.10 Lymph # (Auto) 1.4 Childress # (Auto) 0.4 Eos # (Auto) 0.0 Baso # (Auto) 0.0 Nucleated RBC % (a uto) 0 Nucleated RBCs # 0.0 Sodium 141 Potassium 3.6 Chloride 105 Carbon Dioxide 24 Anion Gap 15.6 BUN 16 Creatinine 0.8 GFR Calculation 71.3 L Glucose 122 H Calculated Osmolal ity 294 Calcium 8.9 Total Bilirubin 0.4 AST 549 H ALT 976 H Alkaline Phosphata se 87 Ammonia 42 Total Protein 6.9 Albumin 3.5 Globulin 3.4 Vitals: Last Vital Signs Temp 98.0 F 04/03/21 07:39 Pulse 70 04/03/21 07:55 Resp 16 04/03/21 07:55 BP 160/84 04/03/21 07:39 Pulse Ox 91 04/03/21 07:55 Discharge Plan Discharge Patient Disposition: Home Condition: Stable Prescriptions: New oxycodone 5 mg capsule 5 mg PO DAILY PRN (Reason: pain) Qty: 20 RF: 0 Senna Plus 8.6-50 mg capsule 1 tab-cap PO DAILY Qty: 30 RF: 0 Continued aspirin 81 mg tablet,delayed release (DR/EC) 81 mg PO DAILY@06 RF: 0 Trelegy Ellipta 100-62.5-25 mcg blister with device 1 inh inhalation Q24H RF: 0 furosemide 40 mg tablet 40 mg PO QAM Qty: 90 RF: 3 potassium chloride 10 mEq tablet extended release 20 meq PO DAILY Qty: 90 RF: 3 amlodipine 5 mg tablet 5 mg PO DAILY PRN (Reason: blood pressure) RF: 0 carvedilol 25 mg tablet 12.5 mg PO BID RF: 0 pantoprazole [Protonix] 40 mg tablet,delayed release (DR/EC) 40 mg PO DAILY Qty: 90 RF: 3 alprazolam 0.25 mg tablet 0.25 mg PO BID PRN (Reason: Anxiety) Qty: 0 RF: 0 methocarbamol 750 mg Tablet 750 mg PO TID PRN (Reason: Muscle Spasm) Qty: 0 RF: 0 Discontinued baclofen 10 mg Tablet 10 mg PO TID RF: 0 pregabalin [Lyrica] 75 mg Capsule 75 mg PO TID RF: 0 zolpidem 10 mg Tablet 5 mg PO BEDTIME PRN (Reason: Sleep) Qty: 0 RF: 0 hydromorphone [Dilaudid] 4 mg tablet 2 mg PO Q4H PRN (Reason: Pain) Qty: 0 RF: 0 Discharge Orders: Discharge Order (Routine); Ordered 04/03/21 Ordered By: Poonam John Referrals: Yesy Shetty MD [Primary Care Provider] - 4-7 days (Call Sunday to make appointment with Dr. Shetty for follow-up) Discharge Diet: Cardiac Discharge Activity: Increase activity as tolerated Patient Instructions: Oxycodone, Rapid Release (By mouth) (ETH-Oxydose, Oxy IR,..., Senna (By mouth) (Sen, Senna-lax), Acute Kidney Injury (DC), CHF Stoplight, COPD Stoplight, Opioid Safety Discharge Attestations Time Spent in Discharge Care*: less than 30 min Quality Metrics Clinical Quality Measures During this hospital stay, did patient experience: None Coding Level of Care Code Acute Chg FW DC note Diagnoses Abnormal liver function R94.5 Acute kidney injury N17.9 Accidental overdose T50.901A GERD (gastroesophageal reflux disease) K21.9 CHF (congestive heart failure), NYHA class II I50.32 Congestive heart failure chronicity: chronic Congestive heart failure type: diastolic Aortic regurgitation I35.1 Cardiac valve disease etiology: nonrheumatic Mitral regurgitation I34.0 Cardiac valve disease etiology: nonrheumatic Polypharmacy Z79.899 COPD (chronic obstructive pulmonary disease) J44.9 Thrombocytopenia D69.6 Uncontrolled hypertension I10
[2021-04-03 09:32] VITALS: RESP 16; O2SAT 91
[2021-04-03] MEDS: methocarbamol 500 mg Tablet 250 MG PO (09:32)
[2021-04-03] MEDS: pantoprazole DR 40 mg Tablet PO (09:32)
[2021-04-03] MEDS: carvedilol 25 mg Tablet 12.5 MG PO (09:32)
[2021-04-03] MEDS: potassium chloride ER 10 mEq Tablet 20 MEQ PO (09:32)
[2021-04-03] MEDS: oxyCODONE 5 mg IR Tab/Cap PO (09:32)
--- NOTE | 2021-04-03 10:47 | PC.NURSE ---
PT HAS DONE WELL FOR ME TODAY. PT IS ALERT AND ORIENTATED. SHE IS UP AND AMBULATING. SHE WILL DISCHARGE TODAY. SHE IS EXCITED ABOUT THAT. IV WAS REMOVED. PT TOLERATED WELL. CATHETER TIP INTACT. PT IS HAVING A LITTLE BIT OF PAIN. ORDERED PRN PAIN MEDICATION WAS GIVEN. DISCHARGE PAPERWORK GONE OVER WITH PT. ALL QUESTIONS ANSWERED. MEDICATIONS SENT TO PHARMACY OF PTS CHOICE AND THEY ARE READY TO BE PICKED UP. PT SAFELY WHEELED OUT OF HOSPITAL BY THIS NURSE.
[2021-04-03 10:52] VITALS: RESP 16; O2SAT 91
== END 2021-04-03 10:53 | disposition home or self-care (01) ==
LOC: ER 09:58 → ICU 04-01 07:16 → MEDSURG 04-02 17:05
PROVIDERS: Admitting Provider Internal Medicine; Emergency Provider Family Medicine; PCP Family Medicine; Visit Provider Internal Medicine
DX: T50.911A Poisoning by multiple unspecified drugs, medicaments and biological substances, accidental (unintentional), initial encounter (principal); R41.82 Altered mental status, unspecified; N17.9 Acute kidney failure, unspecified; R74.01 Elevation of levels of liver transaminase levels; R77.8 Other specified abnormalities of plasma proteins; R94.5 Abnormal results of liver function studies; D69.6 Thrombocytopenia, unspecified; J44.9 Chronic obstructive pulmonary disease, unspecified; K21.9 Gastro-esophageal reflux disease without esophagitis; I08.0 Rheumatic disorders of both mitral and aortic valves; I11.0 Hypertensive heart disease with heart failure; I50.32 Chronic diastolic (congestive) heart failure; Z79.82 Long term (current) use of aspirin; Z79.891 Long term (current) use of opiate analgesic; Z79.899 Other long term (current) drug therapy
CPT/HCPCS: 36415; 36416; 36600; 51702; 70450; 71045; 76705; 80051; 80053; 80074; 80306; 80307; 81003; 82140; 82330; 82550; 82805; 82962; 83605; 83690; 83735; 84443; 84484; 85025; 85610; 87040; 87426; 87635; 93005; 93306; 96372; 96374; 96375; 99285; G0378; J0360; J1644; J2310; J2405; J2920; J7030

== ENCOUNTER → 2022-08-01 14:01 | Outpatient (BNVA) | payer OTHER, SELFPAY | PROVIDERS: PCP Family Medicine; Visit Provider Nurse Practitioner Family | DX: I50.32 Chronic diastolic (congestive) heart failure (principal); I49.5 Sick sinus syndrome | CPT/HCPCS: 36415; 80053; 83880; 85025 ==

== ENCOUNTER 2022-09-20 09:04 | Outpatient (CLI) | payer OTHER, SELFPAY ==
--- NOTE | 2022-09-20 09:13 | USCV_ITS ---
[place], [place] Age: 72 Gender: F : 1950 Exam Date: 09/20/2022 09:35 Ordering Phys: Argenis Nguyễn Technologist: Fabian Garcia Exam Location: [facility] [place] Indication: LE EDEMA, FATIGUE BP: 126 / 78 HR: 64 Rhythm: Sinus Technical Quality: Adequate MEASUREMENTS (Male / Female) Normal Values 2D ECHO LVOT Diameter 2.0 cm LV Ejection Fraction MOD 2C 57.8 % LV Ejection Fraction 2C AL 57.9 % LA Diameter 3.1 cm LA Width 3.3 cm LA Height 5.1 cm RA Width 3.4 cm RA Height 4.4 cm Aorta at Sinotubular Diameter 2.0 cm IVC Diameter 1.9 cm M-MODE Aortic Annulus Diameter 3.2 cm LA Ao Ratio MM 1.0 MV E Point Septal Separation 0.5 cm DOPPLER AV Peak Velocity 147.0 cm/s LVOT Peak Velocity 96.0 cm/s AV Area Cont Eq vti 2.8 cm squared AV Area Cont Eq pk 2.2 cm squared MV Peak Velocity 99.0 cm/s MV Area PHT 6.9 cm squared Mitral E to A Ratio 0.9 MV E' Velocity 37.5 cm/s Mitral E to MV E' Ratio 8.6 Mitral E to LV E' Lateral Ratio 8.7 Mitral E to LV E' Septal Ratio 8.6 TR Peak Velocity 247.8 cm/s TR Peak Gradient 24.6 mmHg TR Mean Velocity 205.9 cm/s TR Mean Gradient 17.9 mmHg TR Velocity Time Integral 68.2 cm Right Atrial Pressure 3.0 mmHg Pulmonary Artery Systolic Pressu 27.6 mmHg PV Peak Velocity 83.3 cm/s RV Acceleration Time 0.1 s RV Ejection Time 0.3 s RV AcT/ET 0.3 FINDINGS Left Ventricle Normal left ventricular size, systolic function and wall thickness, with no regional wall motion abnormalities. Left ventricular ejection fraction is estimated at 55 %. Grade I/IV diastolic dysfunction (abnormal relaxation filling pattern), normal to mildly elevated filling pressures. Right Ventricle Normal right ventricular size and systolic function. Normal right ventricular systolic pressure. Right Atrium The right atrium is normal in size. Left Atrium The left atrium is normal in size. Mitral Valve Structurally normal mitral valve. Mild-moderate mitral valve regurgitation. Aortic Valve Structurally normal trileaflet aortic valve. No aortic valve stenosis. Mild aortic valve regurgitation. Tricuspid Valve Structurally normal tricuspid valve. Mild tricuspid valve regurgitation. Pulmonic Valve Pulmonic valve not well visualized. Pericardium Normal pericardium without effusion. Aorta Normal ascending aorta dimension. IVC The inferior vena cava appears normal. CONCLUSIONS Normal left ventricular size, systolic function and wall thickness, with no regional wall motion abnormalities. Left ventricular ejection fraction is estimated at 55 %. Grade I/IV diastolic dysfunction (abnormal relaxation filling pattern), normal to mildly elevated filling pressures. Structurally normal mitral valve. Mild-moderate mitral valve regurgitation. Structurally normal trileaflet aortic valve. No aortic valve stenosis. Mild aortic valve regurgitation. There is no change from the previous study done 04/02/2021 Dr. Aneesh Valdes MD (Electronically Signed) Final Date: 20 September 2022 14:58 S
== END 2022-09-20 09:05 | disposition home or self-care (01) ==
LOC: RAD 09:08
PROVIDERS: PCP Family Medicine; Visit Provider Nurse Practitioner Family
DX: I50.32 Chronic diastolic (congestive) heart failure (principal); I34.0 Nonrheumatic mitral (valve) insufficiency
CPT/HCPCS: 93306

== ENCOUNTER 2024-03-13 13:05 | Emergency (ER) | payer BC, SELFPAY ==
[2024-03-13 13:24] VITALS: BP 102/69; PULSE 62; RESP 16; TEMP 36.7; O2SAT 92; BMI 34.4
--- NOTE | 2024-03-13 13:30 | XR_ITS ---
WS: [id number] Portable AP upright chest, 03/13/2024 Clinical Data: weakness Comparison: Portable chest, 03/31/2021 Findings: No nodules, masses or effusions are seen. The heart is normal. The pulmonary vascularity is not increased. No pneumonia or pneumothorax is seen. The aortic arch shows tortuosity. Monitor leads are on the chest wall. There is an anterior cervical disc fusion. XR/XR chest 1V portable [id number] Impression: Atherosclerosis.
--- NOTE | 2024-03-13 13:30 | ECG_ITS ---
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: : 1950 Requested By: Mak Gibson Order Number: [id number] Reading MD: ODILON DELATORRE Measurements Intervals [place] Rate: 61 P: 51 CT: 176 QRS: 9 QRSD: 77 T: 51 QT: 419 QTc: 423 Interpretive Statements SINUS RHYTHM LOW QRS VOLTAGE IN PRECORDIAL LEADS [QRS DEFLECTION < 1.0 mV IN CHEST LEADS] POSSIBLE ANTERIOR MYOCARDIAL INFARCTION , PROBABLY OLD [30 ms Q WAVE IN V3/V4, OR R < 0.2 mV IN V4] Compared to ECG 03/31/2021 14:44:52 Low QRS voltage now present Myocardial infarct finding now present T-wave abnormality no longer present Electronically Signed On 03-15-2024 18:12:29 CDT by ODILON DELATORRE [email or web address]
--- NOTE | 2024-03-13 13:30 | CT_ITS ---
WS: [id number] CT HEAD NONCONTRAST HISTORY: Symptoms of acute stroke TECHNIQUE: Contiguous axial imaging performed through the brain. Bone and soft tissue windows. Sagitt al and coronal reformats reviewed. All CT scans at [facility] use at least one of these dose optimization techniques: automated exposure control; mA and/or kV adjustment per patient size (includ es targeted exams where dose is matched to clinical indication); or iterative reconstruction. DLP: 1065.48 mGy COMPARISON: 03/31/2021 No acute intracranial hemorrhage, midline shift or mass effect. Mild atrophy and mild small vessel disease. No acute infarct identified. Ventricles: Normal size with no hydrocephalus. No inferior displacement of the cerebellar tonsils. Paranasal sinuses: As visualized are clear. Mastoid air cells: Well pneumatized. Calvarium and scalp: Skull is intact with no soft tissue edema or swelling. CT/CT head thrombolytic [id number] IMPRESSION: 1. No acute intracranial hemorrhage or edema. 2. Mild atrophy and mild small vessel ischemic disease.
[2024-03-13 13:48] LABS: Glucose Point of Care 101 mg/dL (70-110)
--- NOTE | 2024-03-13 13:50 | ED_ITS ---
HPI - Neuro Symptoms/Deficit 2 General: Chief Complaint: Neuro Symptoms/Deficit Stated Complaint: doc sent speech L side weakness Time Seen by Provider: 03/13/24 13:30 Source: patient Mode of arrival: ambulatory Limitations: no limitations History of Present Illness: 73-year-old female said a history of a s troke in the past she states roughly 20 years ago she states that she went to bed last night at 9 PM woke up at 11 PM states and she went back to sleep states that her had called her on the road at 3 AM states that he had told her that her speech was very slurred she states that she got up tried to feed her animals states that she felt like she was not thinking right having left-sided weakness went to a clinic where they noticed left-sided weakness left-sided facial droop sent her here. She states that her speech has improved along with her thought process states she still feeling some slight weakness on her left side with some difficulty walking. States she had episode prior for weeks ago and had a recent MRI that was negative. Denies any headache denies any fever her last known normal again was 9 PM last night Associated symptoms: Deny chest pain, headache(s), nausea or vomiting Related Data Home Medications Medication Instructions Recorded Confirmed aspirin 81 mg tablet,delayed 81 mg PO DAILY@06 02/09/20 03/13/24 release amlodipine 5 mg tablet 5 mg PO DAILY PRN blood pressure 11/15/20 03/13/24 carvedilol 25 mg tablet 12.5 mg PO BID 11/15/20 03/13/24 lactulose 10 gram/15 mL oral 10 g PO DAILY 07/11/21 03/13/24 solution (Constulose) alprazolam 0.25 mg tablet 0.25 mg PO QID PRN Anxiety 01/11/22 03/13/24 methocarbamol 750 mg tablet 1,500 mg PO TID Muscle Spasm 01/11/22 03/13/24 sennosides 8.6 mg-docusate sodium 1 tab-cap PO DAILY PRN stool 01/11/22 03/13/24 50 mg capsule (Senna Plus) atorvastatin 40 mg tablet 40 mg PO DAILY 08/01/22 03/13/24 dicyclomine 10 mg capsule 20 mg PO QID 08/01/22 03/13/24 pregabalin 75 mg capsule (Lyrica) 75 mg PO TID 08/01/22 03/13/24 Previous Rx's Medication Instructions Recorded furosemide 40 mg tablet See Rx Instructions PO QAM #100 09/25/22 tabs Allergies Allergy/AdvReac Type Severity Reaction Status Date / Time cephalexin Allergy Mild swelling/it Verified 02/27/23 13:37 bentley/redne ss morphine Allergy Unknown Unknown Verified 02/27/23 13:37 bupropion [From Wellbutrin] AdvReac Mild unknown Verified 02/27/23 13:37 codeine AdvReac Mild unknown Verified 02/27/23 13:37 Review of Systems 2 Const: Denies: fever(s), chills, body aches or change in appetite Eyes: Denies: blurry vision or eye discomfort ENMT: Denies: throat pain or dental pain Card: Denies: chest pain Resp: Denies: dyspnea GI: Denies: abdominal pain, nausea, vomiting or diarrhea Musc: Denies: neck pain or back pain Skin/Breast: Denies: rash Neuro: Reports: numbness in extremities, weakness in extremities and Slurred speech present; Denies: headache(s) PFSH ED 2 PFSH: Medical History Accidental overdose History of lung cancer Chronic back pain GERD (gastroesophageal reflux disease) CHF (congestive heart failure), NYHA class II Aortic regurgitation Mitral regurgitation QT prolongation Generalized weakness Thrombocytopenia Polypharmacy Uncontrolled hypertension Elevated troponin CVA (cerebral vascular accident) Hyperlipidemia Hypertension COPD (chronic obstructive pulmonary disease) Acute insomnia History of lung cancer in adulthood Anxiety Surgical History H/O carpal tunnel repair H/O: hysterectomy History of appendectomy History of cholecystectomy History of lung surgery History of neck surgery History of tonsillectomy Family History Father , CABG CAD (coronary artery disease) Daughter CAD (coronary artery disease) Daughter CAD (coronary artery disease) Social History Smoking and tobacco/nicotine status: former use of tobacco/nicotine Alcohol intake: never Substance/Drug Use: never Lives independently: Yes Marital status: NIH stroke score 2 NIHSS: Level Of Consciousness - 1a: 0 Level Of Consciousness Questions - 1b: Both Correct Level Of Consciousness Commands - 1c: Both Correct Best Gaze - 2: Normal Visual Brooks - 3: No Visual Loss Facial Palsy - 4: Minor Paralysis Motor Arm Right - 5: No Drift Motor Arm Left - 5: Drift Motor Leg Right - 6: No Drift Motor Leg Left - 6: Drift Limb Ataxia - 7: Absent Sensory - 8: Mild To Moderate Loss Best Language - 9: No Aphasia D ysarthia - 10: Normal Extinction And Inattention - 11: 0 Score: Total Score: 4 Physical Exam 2 Const: COMMON NORMALS: patient oriented x3 HENMT: COMMON NORMALS: normocephalic and atraumatic HEAD & SCALP: n ormocephalic and atraumatic Neck/C-Spine: COMMON NORMALS: full ROM and supple Chest: COMMONS NORMALS: normal inspection of the chest Resp: COMMON NORMALS: normal respiratory effort Cardio: COMMON NORMALS: regular rate, regular rhythm and No murmurs present (Cardio) RATE: regular rate RHYTHM: regular rhythm GI: COMMON NORMALS: Normal to inspection, nondistended, normoactive bowel sounds present, Soft to palpation, non-tender and no masses PALPATION: Yes Soft to palpation Extremity: COMMON NORMALS: normal to inspection and full ROM Neuro: COMMON NORMALS: patient oriented x3 OTHER: Slight decrease sensation left side of the face has a mild left-sided facial droop she does have drift of left arm and leg Psych: COMMON NORMALS: mental status grossly normal, Normal thought process present and cooperative THOUGHT PROCESS: Normal thought process present Skin: COMMON NORMALS: no rashes or lesions noted and no wounds GENERAL SKIN EXAM: no rashes or lesions noted Course 2 Vital Signs: Vital signs: Vital Signs Temperature 98.0 F 03/13/24 13:24 Pulse Rate 73 03/13/24 15:03 Respiratory Rate 16 03/13/24 15:03 Blood Pressure 127/80 03/13/24 15:03 Pulse Oximetry 92 03/13/24 15:03 Oxygen Delivery Me thod Room Air 03/13/24 15:03 MDM - Neuro Symptoms/Deficit Medical Decision Making Patient presents here with strokelike symptoms. Patient NIH of 4 she had some improvement of her symptoms her last known normal was 9 PM last night is not a thrombolytic candidate CTA showed no occlusion. I spoke to hospitalist will admit at this time. Medical Records I reviewed the patient's medical records. Lab Data I reviewed the patient's lab results. 03/13/24 13:57 03/13/24 13:57 Radiology Impressions Chest X-Ray 03/13/24 13:30 Impression: Atherosclerosis. Head CT 03/13/24 13:30 IMPRESSION: 1. No acute intracranial hemorrhage or edema. 2. Mild atrophy and mild small vessel ischemic disease. Head/Neck CTA 03/13/24 13:54 IMPRESSION: No large vessel stenosis or occlusion. IMPRESSION: No stenosis or occlusion. REFERENCES: NASCET CRITERIA. The degree of stenosis in the cervical segment of the internal carotid artery is based on NASCET criteria. Normal is no stenosis. Mild is less than 50% stenosis. Moderate is 50-69% stenosis. Severe is 70% to 99% stenosis. Total occlusion is no detectable patent lumen. Laboratory Results WBC 8.07 10^3/uL (3.29-11.43) 03/13/24 13:57 RBC 3.67 10^6/uL (3.85-5.65) L 03/13/24 13:57 Hgb 11.60 g/dL (11.27-16.99) 03/13/24 13:57 Hct 36.7 % (36-47) 03/13/24 13:57 MCV 100.0 fl (85-98) H 03/13/24 13:57 MCH 31.6 pg (27-33) 03/13/24 13:57 MCHC 31.6 g/dL (30-55) 03/13/24 13:57 RDW 13.0 % (12.1-15.1) 03/13/24 13:57 Plt Count 128 10^3/cmm (157-399) L 03/13/24 13:57 MPV 12.6 fL (7.4-10.4) H 03/13/24 13:57 Neut % (Auto) 67.5 % 03/13/24 13:57 Lymph % (Auto) 23.4 % 03/13/24 13:57 [place] % (Auto) 6.9 % 03/13/24 13:57 Eos % (Auto) 1.5 % 03/13/24 13:57 Baso % (Auto) 0.5 % 03/13/24 13:57 Neut # (Auto) 5.44 10^3/uL (1.8-7.7) 03/13/24 13:57 Lymph # (Auto) 1.9 10^3/uL (0.8-4.8) 03/13/24 13:57 [place] # (Auto) 0.6 10^3/uL (0.2-0.9) 03/13/24 13:57 Eos # (Auto) 0.1 10^3/uL (0.0-0.8) 03/13/24 13:57 Baso # (Auto) 0.0 10^3/uL (0.0-0.1) 03/13/24 13:57 Nucleated RBC % (auto) 0 % 03/13/24 13:57 Nucleated RBCs # 0.0 /100WBC 03/13/24 13:57 PT 13.70 SECONDS (12.1-14.9) 03/13/24 13:57 INR 1.02 (0.8-1.2) 03/13/24 13:57 APTT 30.6 SECONDS (23.9-36.7) 03/13/24 13:57 Sodium 139 mmol/L (136-145) 03/13/24 13:57 Potassium 4.3 mmol/L (3.5-5.1) 03/13/24 13:57 Chloride 103 mmol/L (98-107) 03/13/24 13:57 Carbon Dioxide 27 mmol/L (22-29) 03/13/24 13:57 Anion Gap 13.3 (5-19) 03/13/24 13:57 BUN 22 mg/dL (8-23) 03/13/24 13:57 Creatinine 1.0 mg/dL (0.5-0.9) H 03/13/24 13:57 GFR Calculation Not Reportable 03/13/24 13:57 Glucose 94 mg/dL (65-115) 03/13/24 13:57 POC Glucose 101 mg/dL (70-110) 03/13/24 13:35 Calculated Osmolality 291 mOsm/kg (285-295) 03/13/24 13:57 Calcium 7.8 mg/dL (8.5-10.5) L 03/13/24 13:57 Total Bilirubin 0.4 mg/dL (0.15-1.2) 03/13/24 13:57 AST 166 U/L (0-32) H 03/13/24 13:57 ALT 74 U/L (0-33) H 03/13/24 13:57 Alkaline Phosphatase 106 U/L (35-105) H 03/13/24 13:57 Total Protein 6.2 g/dL (6.6-8.7) L 03/13/24 13:57 Albumin 3.9 g/dL (3.5-5.2) 03/13/24 13:57 Globulin 2.3 g/dL (1.3-4.6) 03/13/24 13:57 Urine Color Gage (Yellow) A 03/13/24 15: Urine Appearance Clear (CLEAR) 03/13/24 15: Urine pH Not Reportable 03/13/24 15: Ur Specific [place] Not Reportable 03/13/24 15:26 Urine Protein Not tested (Negative) 03/13/24 15: Urine Glucose (UA) Not tested (Normal) 03/13/24 15:26 Urine Ketones Not tested (Negative) H 03/13/24 15:26 Urine Blood Not tested (Negative) A 03/13/24 15:26 Urine Nitrate Not tested (Negative) A 03/13/24 15:26 Urine Bilirubin Not tested (Negative) 03/13/24 15:26 Urine Urobilinogen Not tested mg/dL (Negative) A 03/13/24 15:26 Ur Leukocyte Esterase Not tested (Negative) A 03/13/24 15:26 Urine RBC 0-4 /hpf (0-2) H 03/13/24 15:26 Urine WBC 0-4 /hpf (0-5) H 03/13/24 15:26 Ur Squamous Epith Cells 0-4 /hpf (0-5) H 03/13/24 15:26 Amorphous Sediment Not Reportable 03/13/24 15:26 Urine Bacteria Trace /hpf (NONE) 03/13/24 15:26 Hyaline Casts 5-10 /lpf H 03/13/24 15:26 Urine Mucus None /hpf 03/13/24 15:26 Urine Opiates Screen Positive ng/mL (Negative) H 03/13/24 15:26 Ur Barbiturates Screen Negative ng/mL (Negative) 03/13/24 15:26 Ur Phencyclidine Scrn Negative ng/mL (Negative) 03/13/24 15:26 Ur Amphetamines Screen Negative ng/mL (Negative) 03/13/24 15:26 U Benzodiazepines Scrn Positive ng/mL (Negative) H 03/13/24 15:26 Urine Cocaine Screen Negative ng/mL (Negative) 03/13/24 15:26 U Marijuana (THC) Screen Negative ng/mL (Negative) 03/13/24 15:26 All radiology interpretation(s) finalized by discharge EKG Data EKG 1: I personally reviewed and interpreted this EKG as follows: EKG interpretation date: 03/13/24 EKG interpretation time: 13:22 Interpretation: nsr hr [address] or t wave abnormalities qrs 77 qtc 422 Discharge Plan Discharge Patient Disposition: Admitted As Inpatient Clinical Impression: Cerebrovascular accident Condition: Stable Prescriptions: No Action aspirin 81 mg tablet,delayed release (DR/EC) 81 mg PO DAILY@06 amlodipine 5 mg tablet 5 mg PO DAILY PRN (Reason: blood pressure) Rx Instructions: Top number over 150 or bottom number over 90 mmHg carvedilol 25 mg tablet 12.5 mg PO BID lactulose [Constulose] 10 gram/15 mL solution 10 g PO DAILY alprazolam 0.25 mg tablet 0.25 mg PO QID PRN (Reason: Anxiety) methocarbamol 750 mg tablet 1,500 mg PO TID Senna Plus 8.6-50 mg capsule 1 tab-cap PO DAILY PRN (Reason: stool ) atorvastatin 40 mg tablet 40 mg PO DAILY dicyclomine 10 mg capsule 20 mg PO QID pregabalin [Lyrica] 75 mg capsule 75 mg PO TID furosemide 40 mg tablet See Rx Instructions PO QAM Qty: 100 3RF Rx Instructions: 40mg in the AM, 20mg at 2PM orally every morning; Referrals: FRIEND,CODI Hodge [Primary Care Provider] - Coding Level of Care Code ED Radiology Technologist for Kamila Solomon
--- NOTE | 2024-03-13 13:54 | CTR_ITS ---
PROCEDURE INFORMATION: Exam: CTA Head With Contrast, Arteriography Exam date and time: 03/13/2024 2:43 PM Age: 73 years old Clinical indication: Stroke-like symptoms; Other: CVA TECHNIQUE: Imaging protocol: Computed tomographic angiography of the head with contrast. Exam focused on the arteries. 3D rendering (Not supervised by radiologist): MIP and/or 3D reconstructed images were created by the technologist. Radiation optimization: All CT scans at this facility use at least one of these dose optimization techniques: automated exposure control; mA and/or kV adjustment per patient size (includes targeted exams where dose is matched to clinical indication); or iterative reconstruction. Contrast material: OMNI 350; Contrast volume: 100 ml; Contrast route: INTRAVENOUS (IV); COMPARISON: CT head thrombolytic [id number] 03/13/2024 1:33 PM RADIATION DOSE METRICS: Total DLP (mGy-cm): 525 FINDINGS: ANTERIOR CIRCULATION: Right internal carotid artery: Mild calcifications cavernous segment right internal carotid artery without stenosis or occlusion. Right middle cerebral artery: No occlusion or significant stenosis. No aneurysm. Right anterior cerebral artery: No occlusion or significant stenosis. No aneurysm. Left internal carotid artery: Mild calcifications cavernous segment left internal carotid artery without stenosis or occlusion. Left middle cerebral artery: No occlusion or significant stenosis. No aneurysm. Left anterior cerebral artery: No occlusion or significant stenosis. No aneurysm. POSTERIOR CIRCULATION: Right vertebral artery: No occlusion or significant stenosis. No aneurysm. Left vertebral artery: Bifurcation of the left vertebral artery at the intracranial segment, with the posterior branch supplying part of the left cerebellum and brainstem and the anterior branch taking a normal course. The left vertebral artery is otherwise completely patent. Basilar artery: No occlusion or significant stenosis. No aneurysm. Right posterior cerebral artery: No occlusion or significant stenosis. No aneurysm. Left posterior cerebral artery: No occlusion or significant stenosis. No aneurysm. Brain: See Left vertebral artery finding. Cerebral ventricles: No ventriculomegaly. Bones/joints: Unremarkable. No acute fracture. Soft tissues: Unremarkable. PROCEDURE INFORMATION: Exam: CTA Neck With Contrast Exam date and time: 03/13/2024 2:43 PM Age: 73 years old Clinical indication: Stroke-like symptoms; Other: CVA TECHNIQUE: Imaging protocol: Computed tomographic angiography of the neck with contrast. Exam focused on the cervical segments of the vasculature. 3D rendering (Not supervised by radiologist): MIP and/or 3D reconstructed images were created by the technologist. Radiation optimization: All CT scans at this facility use at least one of these dose optimization techniques: automated exposure control; mA and/or kV adjustment per patient size (includes targeted exams where dose is matched to clinical indication); or iterative reconstruction. Contrast material: OMNI 350; Contrast volume: 100 ml; Contrast route: INTRAVENOUS (IV); COMPARISON: CT head thrombolytic [id number] 03/13/2024 1:33 PM RADIATION DOSE METRICS: Total DLP (mGy-cm): 525 FINDINGS: Right common carotid artery: No stenosis. No dissection or occlusion. Right internal carotid artery: Eccentric calcifications proximal segment right internal carotid artery without stenosis or occlusion. Right external carotid artery: No occlusion or stenosis of the origin. Left common carotid artery: No stenosis. No dissection or occlusion. Left internal carotid artery: Eccentric calcifications proximal segment left internal carotid artery without stenosis or occlusion. Left external carotid artery: No occlusion or stenosis of the origin. Right vertebral artery: No stenosis. No dissection or occlusion. Left vertebral artery: No stenosis. No dissection or occlusion. Soft tissues: Normal. No significant soft tissue swelling. Bones/joints: Anterior cervical spine fixation at C4 and C5 without complications. Multilevel degenerative changes of the vertebra are present, as manifested by multilevel anterior osteophytes, endplate sclerosis, and multilevel posterior disc osteophyte complexes. No acutely displaced fractures. Lungs: Moderate paraseptal and centrilobular emphysematous changes in the lung apices. CT/CT angio headneck* [id number] IMPRESSION: No large vessel stenosis or occlusion. IMPRESSION: No stenosis or occlusion. REFERENCES: NASCET CRITERIA. The degree of stenosis in the cervical segment of the internal carotid artery is based on NASCET criteria. Normal is no stenosis. Mild is less than 50% stenosis. Moderate is 50-69% stenosis. Severe is 70% to 99% stenosis. Total occlusion is no detectable patent lumen.
[2024-03-13 14:03] LABS: Basophils % 0.5 %; Eosinophils # 0.1 10^3/uL (0.0-0.8); Eosinophils % 1.5 %; Hematocrit 36.7 % (36-47); Lymphocytes # 1.9 10^3/uL (0.8-4.8); Lymphocytes % 23.4 %; Mean Corpuscular HGB Conc 31.6 g/dL (30-55); Mean Corpuscular Hemoglobin 31.6 pg (27-33); Mean Platelet Volume 12.6 fL (7.4-10.4); Monocytes # 0.6 10^3/uL (0.2-0.9); Monocytes % 6.9 %; Neutrophils # 5.44 10^3/uL (1.8-7.7); Neutrophils % 67.5 %; Nucleated Red Blood Cells % 0 %; Platelet Count 128 10^3/cmm (157-399); Red Blood Count 3.67 10^6/uL (3.85-5.65); White Blood Count 8.07 10^3/uL (3.29-11.43)
[2024-03-13 14:21] LABS: INR 1.02 (0.8-1.2); Partial Thromboplastin Time 30.6 SECONDS (23.9-36.7)
[2024-03-13 14:29] LABS: Alanine Aminotransferase 74 U/L (0-33); Albumin Level 3.9 g/dL (3.5-5.2); Alkaline Phosphatase 106 U/L (35-105); Anion Gap 13.3 (5-19); Aspartate Amino Transferase 166 U/L (0-32); Blood Urea Nitrogen 22 mg/dL (8-23); Calcium 7.8 mg/dL (8.5-10.5); Carbon Dioxide 27 mmol/L (22-29); Chloride 103 mmol/L (98-107); Creatinine Clr Calc Pharmacy 56.4415; Globulin 2.3 g/dL (1.3-4.6); Glucose 94 mg/dL (65-115); Osmolality Calculated 291 mOsm/kg (285-295); Potassium 4.3 mmol/L (3.5-5.1); Sodium 139 mmol/L (136-145); Total Bilirubin 0.4 mg/dL (0.15-1.2); Total Protein 6.2 g/dL (6.6-8.7)
[2024-03-13] MEDS: aspirin 81 mg Chew Tablet 324 MG PO (14:36)
[2024-03-13] MEDS: iohexol 350 mg/mL 500 mL Btl (per mL) IV (14:46)
[2024-03-13 15:03] VITALS: BP 127/80; PULSE 73; RESP 16; O2SAT 92
[2024-03-13 15:48] LABS: Amphetamines Screen Urine Negative (Negative); Barbiturates Screen Urine Negative (Negative); Benzodiazepines Screen Urine Positive (Negative); Cocaine Screen Urine Negative (Negative); Opiate Screen Urine Positive (Negative); PCP Screen Urine Negative (Negative); THC Screen Urine Negative (Negative)
[2024-03-13 15:54] LABS: Bilirubin Urine Not Tested (Negative); Blood Urine Not Tested (Negative); Glucose Urine UA Not Tested (Normal); Ketones Urine Not Tested (Negative); Nitrate Urine Not Tested (Negative); Protein Urine Not Tested (Negative); Urine Appearance Clear (CLEAR); Urine Color Orange (Yellow); Urobilinogen Urine Not Tested mg/dL (Negative)
[2024-03-13 15:55] LABS: Add Urine Microscopic? YES; Leukocyte Esterase Urine Not Tested (Negative); UA Manual Slide Review YES; UA Slide Review UA Slide Review Perf
[2024-03-13 15:57] LABS: Add Urine Culture? No; Bacteria Urine TRACE /hpf; RBC Urine 0-4 /hpf (0-2); Squamous Epithelial Cell Urine 0-4 /hpf (0-5); WBC Urine 0-4 /hpf (0-5)
--- NOTE | 2024-03-13 16:01 | P.HP_ITS ---
Providers/Chief Complaint 2 Primary Care Provider: CODI Hodge FRIEND Chief Complaint: doc sent speech L side weakness History of Present Illness Ness Graham is a 73 year old female Medications/Allergies Home Medications Medication Instructions Recorded Confirmed Last Taken Type aspirin 81 mg tablet,delayed 81 mg PO DAILY@06 02/09/20 03/13/24 03/12/24 History release amlodipine 5 mg tablet 5 mg PO DAILY PRN blood pressure 11/15/20 03/13/24 03/12/24 History carvedilol 25 mg tablet 12.5 mg PO BID 11/15/20 03/13/24 03/12/24 History lactulose 10 gram/15 mL oral 10 g PO DAILY 07/11/21 03/13/24 03/12/24 History solution (Constulose) alprazolam 0.25 mg tablet 0.25 mg PO QID PRN Anxiety 01/11/22 03/13/24 03/12/24 History methocarbamol 750 mg tablet 1,500 mg PO TID Muscle Spasm 01/11/22 03/13/24 03/12/24 History sennosides 8.6 mg-docusate sodium 1 tab-cap PO DAILY PRN stool 01/11/22 03/13/24 03/12/24 History 50 mg capsule (Senna Plus) atorvastatin 40 mg tablet 40 mg PO DAILY 08/01/22 03/13/24 03/12/24 History dicyclomine 10 mg capsule 20 mg PO QID 08/01/22 03/13/24 03/12/24 History pregabalin 75 mg capsule (Lyrica) 75 mg PO TID 08/01/22 03/13/24 03/12/24 History furosemide 40 mg tablet See Rx Instructions PO QAM #100 09/25/22 03/13/24 03/12/24 Rx tabs Allergies Allergy/AdvReac Type Severity Reaction Status Date / Time cephalexin Allergy Mild swelling/it Verified 02/27/23 13:37 bentley/redne ss morphine Allergy Unknown Unknown Verified 02/27/23 13:37 bupropion [From Wellbutrin] AdvReac Mild unknown Verified 02/27/23 13:37 codeine AdvReac Mild unknown Verified 02/27/23 13:37 PFSH Acute 2 PFSH: Medical History Accidental overdose History of lung cancer Chronic back pain GERD (gastroesophageal reflux disease) CHF (congestive heart failure), NYHA class II Aortic regurgitation Mitral regurgitation QT prolongation Generalized weakness Thrombocytopenia Polypharmacy Uncontrolled hypertension Elevated troponin CVA (cerebral vascular accident) Hyperlipidemia Hypertension COPD (chronic obstructive pulmonary disease) Acute insomnia History of lung cancer in adulthood Anxiety Surgical History H/O carpal tunnel repair H/O: hysterectomy History of appendectomy History of cholecystectomy History of lung surgery History of neck surgery History of tonsillectomy Family History Father , CABG CAD (coronary artery disease) Daughter CAD (coronary artery disease) Daughter CAD (coronary artery disease) Social History Smoking and tobacco/nicotine status: former use of tobacco/nicotine Alcohol intake: never Substance/Drug Use: never Lives independently: Yes Marital status: Vitals/I&O/Wt Last Vital Signs Temp 98.0 F 03/13/24 13:24 Pulse 73 03/13/24 15:03 Resp 16 03/13/24 15:03 BP 127/80 03/13/24 15:03 Pulse Ox 92 03/13/24 15:03 O2 Del Method Room Air 03/13/24 15:03 Weight last 48 hrs Weight 91.172 kg Data 03/13/24 13:57 03/13/24 13:57 Coding Level of Care Code Acute Code for Chg Fwd
[2024-03-13 16:35] LABS: Estmated Average Glucose 100; Hemoglobin A1C 5.1 % (4.0-6.0)
[2024-03-13 16:38] LABS: Chol HDL Ratio 3.26 mg/dL (0.0-4.40); Cholesterol 124 mg/dL (0-200); HDL Cholesterol 38 mg/dL (60-100); LDL Cholesterol Calculated 49 mg/dL (50-129); LDL HDL Ratio 1.29 RATIO (0.00-3.22); Triglycerides 184 mg/dL (0-150)
[2024-03-13] MEDS: sodium chloride 0.9% 1,000 ML 75 ML IV (17:05)
[2024-03-13 17:06] VITALS: BP 140/85; PULSE 62; RESP 19; O2SAT 90
[2024-03-13 17:14] VITALS: BP 140/85; PULSE 61; O2SAT 93
== END 2024-03-13 17:16 | disposition left against medical advice (07) ==
PROVIDERS: Emergency Provider Emergency Medicine; PCP Nurse Practitioner Family; Visit Provider Internal Medicine
DX: I63.9 Cerebral infarction, unspecified (principal); Z79.82 Long term (current) use of aspirin; Z85.118 Personal history of other malignant neoplasm of bronchus and lung; I11.0 Hypertensive heart disease with heart failure; I50.9 Heart failure, unspecified; Z86.73 Personal history of transient ischemic attack (TIA), and cerebral infarction without residual deficits; E78.5 Hyperlipidemia, unspecified; J44.9 Chronic obstructive pulmonary disease, unspecified; Z87.891 Personal history of nicotine dependence
CPT/HCPCS: 36415; 36416; 70450; 70496; 70498; 71045; 80053; 80061; 80306; 81001; 82962; 83036; 85025; 85610; 85730; 93005; 99285; 99291; J7030

== ENCOUNTER 2024-10-13 13:20 | Emergency (ER) | payer OTHER, SELFPAY ==
--- NOTE | 2024-10-13 13:22 | XRR_ITS ---
PROCEDURE INFORMATION: Exam: XR Chest Exam date and time: 10/13/2024 1:34 PM Age: 74 years old Clinical indication: Pain; Angina pectoris; Prior surgery; Surgery date: 6+ months; HX of lung cancer; Additional info: Cp TECHNIQUE: Imaging protocol: Radiologic exam of the chest. Views: 1 view. COMPARISON: CR XR chest 1V portable [id number] 03/13/2024 2:03 PM FINDINGS: Lungs: Focal lung consolidation. Mild interstitial prominence. The lungs are hyperinflated and hyperlucent compatible with chronic obstructive pulmonary disease. Pleural spaces: No pleural effusion. No pneumothorax. Heart/Mediastinum: No cardiomegaly. Diaphragm: Stable elevated left hemidiaphragm. Bones/joints: No acute bony abnormality. XR/XR chest 1V portable [id number] IMPRESSION: Focal lung consolidation. Mild interstitial prominence.
--- NOTE | 2024-10-13 13:22 | ECG_ITS ---
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 Measurements Intervals [place] Rate: 67 P: 25 W[place]: 162 QRS: 13 QRSD: 76 T: 52 QT: 400 QTc: 425 Interpretive Statements SINUS RHYTHM LOW QRS VOLTAGE IN PRECORDIAL LEADS [QRS DEFLECTION < 1.0 mV IN CHEST LEADS] POSSIBLE ANTERIOR MYOCARDIAL INFARCTION , PROBABLY OLD [30 ms Q WAVE IN V3/V4, OR R < 0.2 mV IN V4] Compared to ECG 03/13/2024 13:22:56 No significant changes Electronically Signed On 10-14-2024 06:27:15 CDT by Sunny Ferrari M.D. [email or web address]
[2024-10-13 13:24] VITALS: BP 113/70; PULSE 68; TEMP 36.8; O2SAT 90
[2024-10-13 14:05] LABS: Basophils % 0.3 %; Eosinophils # 0.3 10^3/uL (0.0-0.8); Eosinophils % 2.9 %; Hematocrit 40.6 % (36-47); Lymphocytes # 1.5 10^3/uL (0.8-4.8); Mean Corpuscular HGB Conc 31.8 g/dL (30-55); Mean Corpuscular Hemoglobin 30.4 pg (27-33); Mean Corpuscular Volume 95.8 fl (85-98); Mean Platelet Volume 12.3 fL (7.4-10.4); Monocytes # 0.8 10^3/uL (0.2-0.9); Neutrophils # 8.23 10^3/uL (1.8-7.7); Neutrophils % 75.5 %; Nucleated Red Blood Cells % 0 %; Platelet Count 121 10^3/cmm (157-399); Red Blood Count 4.24 10^6/uL (3.85-5.65); Red Cell Distribution Width 12.8 % (12.1-15.1); White Blood Count 10.89 10^3/uL (3.29-11.43)
[2024-10-13 14:22] LABS: INR 0.97 (0.8-1.2)
[2024-10-13 14:26] LABS: Troponin(5th) Baseline < 6 ng/L (0-10)
[2024-10-13 14:35] LABS: Alanine Aminotransferase 10 U/L (0-33); Alkaline Phosphatase 80 U/L (35-105); Anion Gap 16.7 (5-19); Aspartate Amino Transferase 15 U/L (0-32); Blood Urea Nitrogen 21 mg/dL (8-23); Calcium 8.4 mg/dL (8.5-10.5); Carbon Dioxide 26 mmol/L (22-29); Chloride 105 mmol/L (98-107); Creatinine Clr Calc Pharmacy 59.3763; Globulin 2.3 g/dL (1.3-4.6); Glucose 121 mg/dL (65-115); Lipase 26 U/L (13-60); NT Pro B Type Natriuretic Pept 325 pg/mL (0-125); Osmolality Calculated 300 mOsm/kg (285-295); Potassium 4.7 mmol/L (3.5-5.1); Sodium 143 mmol/L (136-145); Total Bilirubin 0.2 mg/dL (0.15-1.2); Total Protein 6.3 g/dL (6.6-8.7)
--- NOTE | 2024-10-13 15:22 | ECG_ITS ---
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 Measurements Intervals [place] Rate: 68 P: 62 SD: 178 QRS: 27 QRSD: 74 T: 60 QT: 378 QTc: 402 Interpretive Statements SINUS RHYTHM LOW QRS VOLTAGE IN PRECORDIAL LEADS [QRS DEFLECTION < 1.0 mV IN CHEST LEADS] Compared to ECG 10/13/2024 13:29:30 Myocardial infarct finding no longer present Electronically Signed On 10-14-2024 06:39:58 CDT by Sunny Ferrari M.D. [id number]
[2024-10-13 16:03] VITALS: BP 134/73; PULSE 75; RESP 20; O2SAT 88
--- NOTE | 2024-10-13 16:07 | CTR_ITS ---
PROCEDURE INFORMATION: Exam: CTA Chest With Contrast Exam date and time: 10/13/2024 4:29 PM Age: 74 years old Clinical indication: Shortness of breath; Prior surgery; Surgery date: 6+ months; Surgery type: RT lung; Additional info: SOB TECHNIQUE: Imaging protocol: Computed tomographic angiography of the chest with contrast. Exam focused on the arteries. 3D rendering (Not supervised by radiologist): MIP and/or 3D reconstructed images were created by the technologist. Radiation optimization: All CT scans at this facility use at least one of these dose optimization techniques: automated exposure control; mA and/or kV adjustment per patient size (includes targeted exams where dose is matched to clinical indication); or iterative reconstruction. Contrast material: OMNIPAQUE 350; Contrast volume: 100 ml; Contrast route: INTRAVENOUS (IV); COMPARISON: CR XR chest 1V portable [id number] 10/13/2024 1:34 PM RADIATION DOSE METRICS: Total DLP (mGy-cm): 374.83 FINDINGS: Pulmonary arteries: Normal. No pulmonary emboli. Aorta: Unremarkable. No aortic aneurysm. No aortic dissection. Lungs: Reticulonodular opacities scattered throughout the right lung. Emphysematous changes of the lungs. Pulmonary granulomas. Pleural spaces: No pleural effusion or pneumothorax.. Heart: Unremarkable. No cardiomegaly. No pericardial effusion. Coronary arteries: Coronary artery calcifications. Lymph nodes: Mildly prominent multi station mediastinal lymph nodes which are likely reactive. There are some calcified hilar lymph nodes. Diaphragm: Small hiatal hernia. Intestine: Incompletely visualized colonic diverticulosis. Bones/joints: Degenerative changes of the thoracic spine. Soft tissues: Unremarkable. CT/CT angio chest PE protcl [id number] IMPRESSION: 1. No pulmonary embolism. 2. Reticulonodular opacities in the right lung of an infectious/inflammatory process. 3. Emphysema. 4. Coronary artery disease. COMMENTS: The presence of pulmonary emphysema on CT is an independent risk factor for lung cancer. In the absence of a history or active diagnosis of lung cancer, it is recommended that this patient with emphysema be evaluated for enrollment in a low dose CT lung cancer screening program.
--- NOTE | 2024-10-13 16:11 | W.ED.SOB ---
HPI - SOB/Dyspnea General: Chief Complaint: Shortness of Breath/Dyspnea Stated Complaint: chest pain, L arm pain, sob Time Seen by Provider: 10/13/24 16:04 Source: patient Limitations: no limitations History of Present Illness: HPI Narrative: 74-year-old female who states that she started having some chest pains overnight states is a pressure type pain with some pain down her left arm and she has been feeling short of breath as well. She denies any worse or improving factors rates her pain a 4 out of 10 currently denies any vomiting. Associated symptoms: Reports chest pain; Deny abdominal pain, fever(s), nausea or vomiting Related Data Home Medications ?Medication ?Instructions ?Recorded ?Confirmed aspirin 81 mg tablet,delayed 81 mg PO DAILY@06 02/09/20 03/13/24 release amlodipine 5 mg tablet 5 mg PO DAILY PRN blood pressure 11/15/20 03/13/24 carvedilol 25 mg tablet 12.5 mg PO BID 11/15/20 03/13/24 lactulose 10 gram/15 mL oral 10 g PO DAILY 07/11/21 03/13/24 solution (Constulose) alprazolam 0.25 mg tablet 0.25 mg PO QID PRN Anxiety 01/11/22 03/13/24 methocarbamol 750 mg tablet 1,500 mg PO TID Muscle Spasm 01/11/22 03/13/24 sennosides 8.6 mg-docusate sodium 1 tab-cap PO DAILY PRN stool 01/11/22 03/13/24 50 mg capsule (Senna Plus) atorvastatin 40 mg tablet 40 mg PO DAILY 08/01/22 03/13/24 dicyclomine 10 mg capsule 20 mg PO QID 08/01/22 03/13/24 pregabalin 75 mg capsule (Lyrica) 75 mg PO TID 08/01/22 03/13/24 Previous Rx's ?Medication ?Instructions ?Recorded furosemide 40 mg tablet See Rx Instructions PO QAM #100 09/25/22 tabs doxycycline hyclate 100 mg tablet 100 mg PO BID 7 days #14 tabs 10/13/24 Allergies Allergy/AdvReac Type Severity Reaction Status Date / Time cephalexin Allergy Mild swelling/it Verified 10/13/24 13:34 bentley/redne ss morphine Allergy Unknown Unknown Verified 10/13/24 13:34 bupropion (From Wellbutrin) AdvReac Mild unknown Verified 10/13/24 13:34 codeine AdvReac Mild unknown Verified 10/13/24 13:34 Review of Systems Const: Denies: fever(s), chills, body aches or change in appetite ENMT: Denies: throat pain or dental pain Card: Reports: chest pain Resp: Reports: dyspnea GI: Denies: abdominal pain, nausea, vomiting or diarrhea Musc: Denies: neck pain or back pain Skin/Breast: Denies: rash Neuro: Denies: headache(s) PFSH ED PFSH: Medical History Accidental overdose History of lung cancer Chronic back pain GERD (gastroesophageal reflux disease) CHF (congestive heart failure), NYHA class II Aortic regurgitation Mitral regurgitation QT prolongation Generalized weakness Thrombocytopenia Polypharmacy Uncontrolled hypertension Elevated troponin CVA (cerebral vascular accident) Hyperlipidemia Hypertension COPD (chronic obstructive pulmonary disease) Acute insomnia History of lung cancer in adulthood Anxiety Surgical History History of lung surgery H/O carpal tunnel repair History of tonsillectomy History of appendectomy H/O: hysterectomy History of neck surgery History of cholecystectomy Family History Father , CABG CAD (coronary artery disease) Daughter CAD (coronary artery disease) Daughter CAD (coronary artery disease) Social History Smoking and tobacco/nicotine status: former use of tobacco/nicotine Alcohol intake: never Substance/Drug Use: never Lives independently: Yes Marital status: Physical Exam Const: COMMON NORMALS: patient oriented x3 HENMT: COMMON NORMALS: normocephalic and atraumatic HEAD & SCALP: normocephalic and atraumatic Eye: COMMON NORMALS: conjunctivae normal CONJUNCTIVA: Yes conjunctivae normal Neck/C-Spine: COMMON NORMALS: full ROM and supple Chest: COMMONS NORMALS: normal inspection of the chest and normal palpation of entire chest wall Resp: COMMON NORMALS: normal respiratory effort, No retractions, No use of accessory muscles and clear to auscultation bilaterally AUSCULTATION: clear to auscultation bilaterally Cardio: COMMON NORMALS: regular rate, regular rhythm and No murmurs present (Cardio) RATE: regular rate RHYTHM: regular rhythm GI: COMMON NORMALS: Normal to inspection, nondistended, normoactive bowel sounds present, Soft to palpation, non-tender and no masses PALPATION: Yes Soft to palpation Extremity: COMMON NORMALS: normal to inspection and full ROM Neuro: COMMON NORMALS: patient oriented x3, moves all extremities and no focal motor deficits Psych: COMMON NORMALS: mental status grossly normal, Normal thought process present and cooperative THOUGHT PROCESS: Normal thought process present Skin: COMMON NORMALS: no rashes or lesions noted and no wounds GENERAL SKIN EXAM: no rashes or lesions noted Course Vital Signs: Vital signs: Vital Signs Temperature 98.3 F 10/13/24 13:24 Pulse Rate 73 10/13/24 16:54 Respiratory Rate 18 10/13/24 16:54 Blood Pressure 134/73 10/13/24 16:03 Pulse Oximetry 90 10/13/24 16:54 Oxygen Delivery Me thod Room Air 10/13/24 16:54 MDM - SOB/Dyspnea Medical Decision Making Patient presents here shortness of breath she is found to have a pneumonia I strongly recommended admission here for IV antibiotics she states she has animals she has to take care of and she is not able to stay we will start her on oral antibiotics informed if she changes her mind or has worsening symptoms she is to return she understands agrees to plan Medical Records I reviewed the patient's medical records. Lab Data I reviewed the patient's lab results. 10/13/24 13:55 10/13/24 13:55 Labs/Radiology: Radiology Impressions Chest X-Ray 10/13/24 13:22 IMPRESSION: Focal lung consolidation. Mild interstitial prominence. Chest CTA 10/13/24 16:07 IMPRESSION: 1. No pulmonary embolism. 2. Reticulonodular opacities in the right lung of an infectious/inflammatory process. 3. Emphysema. 4. Coronary artery disease. COMMENTS: The presence of pulmonary emphysema on CT is an independent risk factor for lung cancer. In the absence of a history or active diagnosis of lung cancer, it is recommended that this patient with emphysema be evaluated for enrollment in a low dose CT lung cancer screening program. Laboratory Results WBC 10.89 10^3/uL (3.29-11.43) 10/13/24 13:55 RBC 4.24 10^6/uL (3.85-5.65) 10/13/24 13:55 Hgb 12.90 g/dL (11.27-16.99) 10/13/24 13:55 Hct 40.6 % (36-47) 10/13/24 13:55 MCV 95.8 fl (85-98) 10/13/24 13:55 MCH 30.4 pg (27-33) 10/13/24 13:55 MCHC 31.8 g/dL (30-55) 10/13/24 13:55 RDW 12.8 % (12.1-15.1) 10/13/24 13:55 Plt Count 121 10^3/cmm (157-399) L 10/13/24 13:55 MPV 12.3 fL (7.4-10.4) H 10/13/24 13:55 Neut % (Auto) 75.5 % 10/13/24 13:55 Lymph % (Auto) 14.0 % 10/13/24 13:55 [place] % (Auto) 7.0 % 10/13/24 13:55 Eos % (Auto) 2.9 % 10/13/24 13:55 Baso % (Auto) 0.3 % 10/13/24 13:55 Neut # (Auto) 8.23 10^3/uL (1.8-7.7) H 10/13/24 13:55 Lymph # (Auto) 1.5 10^3/uL (0.8-4.8) 10/13/24 13:55 [place] # (Auto) 0.8 10^3/uL (0.2-0.9) 10/13/24 13:55 Eos # (Auto) 0.3 10^3/uL (0.0-0.8) 10/13/24 13:55 Baso # (Auto) 0.0 10^3/uL (0.0-0.1) 10/13/24 13:55 Nucleated RBC % (auto) 0 % 10/13/24 13:55 Nucleated RBCs # 0.0 /100WBC 10/13/24 13:55 PT 13.50 SECONDS (12.1-14.9) 10/13/24 13:55 INR 0.97 (0.8-1.2) 10/13/24 13:55 Sodium 143 mmol/L (136-145) 10/13/24 13:55 Potassium 4.7 mmol/L (3.5-5.1) 10/13/24 13:55 Chloride 105 mmol/L (98-107) 10/13/24 13:55 Carbon Dioxide 26 mmol/L (22-29) 10/13/24 13:55 Anion Gap 16.7 (5-19) 10/13/24 13:55 BUN 21 mg/dL (8-23) 10/13/24 13:55 Creatinine 0.9 mg/dL (0.5-0.9) 10/13/24 13:55 GFR Calculation Not Reportable 10/13/24 13:55 Glucose 121 mg/dL (65-115) H 10/13/24 13:55 Calculated Osmolality 300 mOsm/kg (285-295) H 10/13/24 13:55 Calcium 8.4 mg/dL (8.5-10.5) L 10/13/24 13:55 Total Bilirubin 0.2 mg/dL (0.15-1.2) 10/13/24 13:55 AST 15 U/L (0-32) 10/13/24 13:55 ALT 10 U/L (0-33) 10/13/24 13:55 Alkaline Phosphatase 80 U/L (35-105) 10/13/24 13:55 Troponin T Baseline < 6 ng/L (0-10) 10/13/24 13:55 Troponin T 120 Minute < 6.0 ng/L (0-10) 10/13/24 15:55 Delta Troponin T 0 ABS# (0-10) 10/13/24 15:55 NT-Pro-B Natriuret Pep 325 pg/mL (0-125) H 10/13/24 13:55 Total Protein 6.3 g/dL (6.6-8.7) L 10/13/24 13:55 Albumin 4.0 g/dL (3.5-5.2) 10/13/24 13:55 Globulin 2.3 g/dL (1.3-4.6) 10/13/24 13:55 Lipase 26 U/L (13-60) 10/13/24 13:55 All radiology interpretation(s) finalized by discharge EKG Data EKG 1: I personally reviewed and interpreted this EKG as follows: EKG Interpretation Date: 10/13/24 EKG interpretation time: 16:06 Interpretation: nsr hr [address] elevation [id number] qtc 395 Discharge Plan Discharge Patient Disposition: Home Clinical Impression: Community acquired pneumonia Condition: Stable Prescriptions: New doxycycline hyclate 100 mg tablet 100 mg PO BID 7 Days Qty: 14 0RF No Action aspirin 81 mg tablet,delayed release (DR/EC) 81 mg PO DAILY@06 amlodipine 5 mg tablet 5 mg PO DAILY PRN (Reason: blood pressure) Rx Instructions: Top number over 150 or bottom number over 90 mmHg carvedilol 25 mg tablet 12.5 mg PO BID lactulose [Constulose] 10 gram/15 mL solution 10 g PO DAILY alprazolam 0.25 mg tablet 0.25 mg PO QID PRN (Reason: Anxiety) methocarbamol 750 mg tablet 1,500 mg PO TID Senna Plus 8.6-50 mg capsule 1 tab-cap PO DAILY PRN (Reason: stool ) atorvastatin 40 mg tablet 40 mg PO DAILY dicyclomine 10 mg capsule 20 mg PO QID pregabalin [Lyrica] 75 mg capsule 75 mg PO TID furosemide 40 mg tablet See Rx Instructions PO QAM Qty: 100 3RF Rx Instructions: 40mg in the AM, 20mg at 2PM orally every morning; Discharge Orders: Discharge ED (Routine); Ordered 10/13/24 Ordered By: Mak Gibson Referrals: Tanner Tran MD [Primary Care Provider, Family Practice] - 4-7 days Discharge Diet: Advance as tolerated Discharge Activity: Resume usual activity Patient Instructions: Community Acquired Pneumonia (ED) Print Language: Arabic Coding Level of Care Code ED Graphic Design Assistant for Kamila Solomon
[2024-10-13] MEDS: iohexol 350 mg/mL 500 mL Btl (per mL) IV (16:32)
[2024-10-13 16:38] LABS: Troponin 5 2HR < 6.0 ng/L (0-10); Troponin 5 2HR Delta 0 ABS# (0-10)
[2024-10-13] MEDS: aspirin 81 mg Chew Tablet 324 MG PO (16:38)
[2024-10-13] MEDS: ipratropium-albuterol 3 mL Neb INHALATION (16:53)
[2024-10-13 16:54] VITALS: PULSE 73; RESP 18; O2SAT 90
[2024-10-13] MEDS: doxycycline 100 mg Tablet PO (17:32)
[2024-10-13 17:39] VITALS: BP 127/86; PULSE 66; O2SAT 92
== END 2024-10-13 17:41 | disposition home or self-care (01) ==
PROVIDERS: Emergency Provider Emergency Medicine; PCP Family Medicine
DX: J18.9 Pneumonia, unspecified organism (principal); Z79.82 Long term (current) use of aspirin; Z87.891 Personal history of nicotine dependence; J44.9 Chronic obstructive pulmonary disease, unspecified; E78.5 Hyperlipidemia, unspecified; Z86.73 Personal history of transient ischemic attack (TIA), and cerebral infarction without residual deficits; I11.0 Hypertensive heart disease with heart failure; I50.9 Heart failure, unspecified; Z85.118 Personal history of other malignant neoplasm of bronchus and lung
CPT/HCPCS: 36415; 71045; 71275; 80053; 83690; 83880; 84484; 85025; 85610; 93005; 94640; 99285; J9999